=== PATIENT | female | born 1940 | race Caucasian/White ===

== ENCOUNTER 2019-07-04 19:20 | Inpatient (IN) | payer MEDICARE, OTHER ==
[~2019-07-04] VITALS: Ht 157.5 cm; Wt 56.4 kg
--- NOTE | 2019-07-04 19:30 | NUR ---
Admission Note with Justification for Admission to [facility] Patient admitted to [facility] for protective oversight for emergency stabilization of acute psychiatric crisis. Pt admitted from: [facility]/ Home Mode of arrival: EMS Accompanied By: EMS Precipitating behaviors that initiated intake and admission: AMS, delusional, visual hallucinations, refusing medications for a couple of weeks, not eating for 3 weeks, delusional- stating that she was washing the dirty dog in the bed while at the hospital, and insomnia. Description of failure of out patient attempts at stabilization in previous setting list behavior and medication trials: Pt re-started on Wellbutrin, Seroquel, Lorazepam, and Zoloft; psychological evaluation by [facility]. Behaviors and assessment findings upon admission: Pt A/O to person, , month, and current president. Pt pleasant, confused, and cooperative. Physical assessment as charted. Pt c/o pelvic pain with turning and standing. Pt oriented to room and unit, yellow non-slip socks on, bed low and locked with alarm set. Plan: Admit for protective oversight for adjustment and stabilization of medications, behaviors and mood. Intense treatment regimen including groups, medication adjustments, therapy, consistent regimen for ADL's, self care, and sleep hygiene. Daily monitoring by Inpatient staff, Psychiatry, and Medical Physician.
[2019-07-04] MEDS ORDERED: METHYL SALICYLATE/MENTHOL TOPICAL OINTMENT 29GM TUBE. TP PRN (21:00)
[2019-07-04] MEDS ORDERED: MAG HYDROX/AL HYDROX/SIMETH 30 ML ORAL.SUSP PO PRN (21:00)
--- NOTE | 2019-07-04 21:37 | NUR ---
Admission Note with Justification for Admission to [facility] Patient admitted to [facility] for protective oversight for emergency stabilization of acute psychiatric crisis. Pt admitted from: SNF Mode of arrival: EMS Accompanied By: Secure Transport Precipitating behaviors that initiated intake and admission: Delusional confused hallucinating not taking meds not eating, insomnia. Description of failure of out patient attempts at stabilization in previous setting list behavior and medication trials: Med adjustments. Assessed by [facility]. Behaviors and assessment findings upon admission: Pt tearful, complains of pain to pelvis, is labile, confused. Follows commands but is impulsive. Plan: Admit for protective oversight for adjustment and stabilization of medications, behaviors and mood. Intense treatment regimen including groups, medication adjustments, therapy, consistent regimen for ADL's, self care, and sleep hygiene. Daily monitoring by Inpatient staff, Psychiatry, and Medical Physician.
[2019-07-04] MEDS ORDERED: ACET500T68 PO (21:48)
[2019-07-04] MEDS ORDERED: QUET100T4 PO (21:48)
[2019-07-04] MEDS ORDERED: AMLO5TAB10 PO (21:48)
[2019-07-04] MEDS ORDERED: NITR0.4T SL (21:48)
[2019-07-04] MEDS ORDERED: MAGN64TA6 PO (21:48)
[2019-07-04] MEDS ORDERED: METF500T16 PO (21:48)
[2019-07-04] MEDS ORDERED: MELA1TAB20 PO (21:48)
[2019-07-04] MEDS ORDERED: FURO20TA3 PO (21:48)
[2019-07-04] MEDS ORDERED: BUPR100T11 PO (21:48)
[2019-07-04] MEDS ORDERED: UBID30CA6 PO (21:48)
[2019-07-04] MEDS ORDERED: CHOL10003 PO (21:48)
[2019-07-04] MEDS ORDERED: SERT100T PO (21:48)
[2019-07-04] MEDS ORDERED: REPA2TAB PO (21:48)
[2019-07-04] MEDS ORDERED: QUET25TA5 PO (21:48)
[2019-07-04] MEDS ORDERED: FOLI1TAB16 PO (21:48)
[2019-07-04] MEDS ORDERED: TELM80TA PO (21:48)
[2019-07-04] MEDS ORDERED: FENO145T30 PO (21:48)
[2019-07-04] MEDS ORDERED: ALIR75PE SQ (21:48)
[2019-07-04] MEDS ORDERED: ASPI-612 PO (21:48)
[2019-07-04] MEDS ORDERED: RANI150T2 PO (21:48)
[2019-07-04] MEDS ORDERED: CARV3.1230 PO (21:48)
[2019-07-04] MEDS ORDERED: CEFD300C PO (21:48)
[2019-07-04] MEDS ORDERED: NITROGLYCERIN SUBLINGUAL 0.4 MG BOTTLE OF 25. SL PRN (22:00)
--- NOTE | 2019-07-04 22:08 | PDOC ---
Exam Note: Flavio Note: Please also refer to the separate dictated note~for this date of service dictated separately. Discussed the patient with Nursing staff reviewed the chart.~Reviewed interim history and current functioning. Reviewed vital signs,~Labs/ Radiology~and current medications noted below. Continue current treatment with the changes noted in the dictated addendum note Current Medications: I have reviewed the current psychotropics carefully including drug interactions. Risk benefit ratio favors no change other than as noted in my dictated progress note. PAUL SHER MD Jul 04, 2019 22:08
[2019-07-04] MEDS: MELATONIN 3 MG TABLET PO SCH (22:47)
[2019-07-04] MEDS: FAMOTIDINE 20 MG TABLET PO SCH (22:47)
[2019-07-04] MEDS: buPROPion 100 MG TABLET PO SCH (22:47)
[2019-07-04] MEDS: ACETAMINOPHEN 500 MG TABLET PO SCH (22:47)
[2019-07-05] VITALS: BP_SYST 190; BP_SYST 196; BP_DIAS 73; BP_DIAS 82
[2019-07-05 02:19] LABS: BILIRUBIN,URINE NEG (NEG); CLARITY,URINE CLEAR; COLOR,URINE YELLOW; GLUCOSE,URINE NEG (NEG); NITRITE,URINE NEG (NEG); UROBILINOGEN,URINE 0.2 mg/dL (0.2 mg/dL)
[2019-07-05 02:20] LABS: BACTERIA,URINE FEW /HPF (0-FEW); HYALINE CASTS, URINE FEW /HPF; RBC,URINE OCC /HPF (0-2); SQUAMOUS EPITHELIAL CELL,UR FEW /LPF
[2019-07-05] MEDS: ACETAMINOPHEN 500 MG TABLET PO SCH ×2 (05:31)
[2019-07-05] MEDS: QUEtiapine 25 MG TABLET. PO SCH ×2 (05:31→12:35)
[2019-07-05 05:37] VITALS: BP 202/88
[2019-07-05] MEDS: amLODIPine BESYLATE 10 MG TABLET PO SCH (05:52)
[2019-07-05 07:37] LABS: BASO # 0.1 x10^3/uL (0.0-0.2); BASO % 1 % (0-3); EOS # 0.3 x10^3/uL (0.0-0.7); EOS % 4 % (0-3); HEMATOCRIT 34.3 % (36.0-47.0); HEMOGLOBIN 11.3 g/dL (12.0-15.5); LYMPH # 1.1 x10^3/uL (1.0-4.8); LYMPH % 16 % (24-48); MEAN CORPUSCULAR HEMOGLOBIN 29 pg (25-35); MEAN CORPUSCULAR HGB CONC 33 g/dL (31-37); MEAN CORPUSCULAR VOLUME 87 fL (79-100); MONO # 0.7 x10^3/uL (0.0-1.1); MONO % 9 % (0-9); NEUT # 5.1 x10^3uL (1.8-7.7); NEUT % 70 % (31-73); PLATELET COUNT 303 x10^3/uL (140-400); RED BLOOD COUNT 3.95 x10^6/uL (3.50-5.40); RED CELL DISTRIBUTION WIDTH 15.2 % (11.5-14.5); WHITE BLOOD COUNT 7.3 x10^3/uL (4.0-11.0)
[2019-07-05 07:56] LABS: ALBUMIN 3.1 g/dL (3.4-5.0); ALBUMIN/GLOBULIN RATIO 1.2 (1.0-1.7); CREATININE 0.9 mg/dL (0.6-1.0); GFR 60.7; MAGNESIUM 1.6 mg/dL (1.8-2.4); POTASSIUM 3.4 mmol/L (3.5-5.1); TOTAL BILIRUBIN 0.4 mg/dL (0.2-1.0); TOTAL PROTEIN 5.7 g/dL (6.4-8.2)
[2019-07-05] MEDS: ASPIRIN ENTERIC COATED 81 MG TABLET.DR. PO SCH ×2 (08:25→12:31)
[2019-07-05] MEDS: CARVEDILOL 3.125 MG TABLET PO SCH ×3 (08:25→17:07)
[2019-07-05] MEDS: metFORMIN 500 MG TABLET PO SCH ×3 (08:25→17:07)
[2019-07-05] MEDS: UBIDECARENONE 50 MG CAPSULE. PO SCH ×3 (08:26→20:12)
[2019-07-05] MEDS: FUROSEMIDE 20 MG TABLET PO SCH ×2 (08:26→12:32)
[2019-07-05] MEDS: FOLIC ACID 1 MG TABLET PO SCH ×2 (08:26→12:48)
[2019-07-05] MEDS: LOSARTAN 50 MG TABLET. PO SCH ×2 (08:26→12:32)
[2019-07-05] MEDS: MAGNESIUM CHLORIDE ER 64 MG TABLET.ER PO SCH ×2 (08:27→12:49)
[2019-07-05] MEDS: FAMOTIDINE 20 MG TABLET PO SCH ×3 (08:27→20:14)
[2019-07-05] MEDS: CEFDINIR 300 MG CAPSULE PO SCH ×3 (08:27→20:12)
[2019-07-05] MEDS: CHOLECALCIFEROL (VITAMIN D3) 1,000 UNIT TABLET PO SCH ×2 (08:27→12:49)
[2019-07-05] MEDS: buPROPion 100 MG TABLET PO SCH ×3 (08:27→20:12)
[2019-07-05] MEDS: SERTRALINE 100 MG TABLET. PO SCH ×2 (08:27→12:35)
[2019-07-05 08:39] LABS: HYPOCHROMIA PRESENT; PLT ESTIMATE ADEQUATE (ADEQUATE)
[2019-07-05 08:45] VITALS: BP 145/75
[2019-07-05] MEDS: C.DIFF MED SCREEN BY RX. MC SCH (09:00)
[2019-07-05] MEDS ORDERED: amLODIPine BESYLATE 5 MG TABLET PO SCH (09:00)
[2019-07-05] MEDS ORDERED: FENOFIBRATE NANOCRYSTALLIZED 145 MG TABLET PO SCH (09:00)
[2019-07-05 10:19] LABS: THYROID STIM HORMONE (TSH) 1.703 uIU/mL (0.358-3.740)
[2019-07-05 11:07] LABS: THYROXINE 7.2 ug/dL (4.5-12.0)
--- NOTE | 2019-07-05 11:45 | NUR ---
Pt is restless, unable to focus on a task, irritable, believes she is in a half-way and states "I gave this place a lot of money." "I gave this place a lot of money when my mom lived here." When asked if she knew the date pt stated "June 2018" When asked if she knew why she was here she stated "because of breathing problems." Pt has refused all am medications-she took the pill cup to her lips then put it on the table and took a drink of water when the nurse encouraged her to swallow her medication she dumped the medication in the cup. Nurse encouraged her multiple times to take her medication however pt continued to refuse stating "I don't take medication." "Ill ask the doctor first." Pt continues to be restless, irritable and confused.
[2019-07-05 15:46] VITALS: BP 135/65
[2019-07-05] MEDS ORDERED: REPAGLINIDE 1 MG TABLET PO SCH (17:00)
[2019-07-05] MEDS: QUEtiapine 100 MG TABLET. PO SCH (17:07)
[2019-07-05] MEDS: MELATONIN 3 MG TABLET PO SCH (20:12)
[2019-07-05] MEDS ORDERED: MELATONIN 3 MG TABLET PO SCH (21:00)
[2019-07-05] MEDS: MIRTAZAPINE 7.5 MG TABLET. PO SCH (21:49)
--- NOTE | 2019-07-05 21:58 | PDOC ---
Exam Note: Flavio Note: Please also refer to the separate dictated note~for this date of service dictated separately.~Patient seen individually. Discussed the patient with Nursing staff reviewed the chart.~Reviewed interim history and current functioning. Reviewed vital signs,~Labs/ Radiology~and current medications noted below. Continue current treatment with the changes noted in the dictated addendum note Assessment: Vital Signs/I&O: Vital Signs Date Time Temp Pulse Resp B/P (MAP) Pulse Ox O2 Delivery O2 Flow Rate FiO2 07/05/19 17:07 94 135/65 07/05/19 15:46 97.4 20 95 I & O 07/04/19 07/04/19 07/05/19 15:00 23:00 07:00 Intake Total 120 ml Balance 120 ml Labs: Laboratory Tests Test 07/05/19 02:04 07/05/19 06:50 07/05/19 07:50 Urine Collection Type Void Urine Color Yellow Urine Clarity Clear Urine pH 7.5 Urine Specific Chancellor 1.025 Urine Protein >100 mg/dl (NEG-TRACE) Urine Glucose (UA) Neg mg/dL (NEG) Urine Ketones (Stick) Neg mg/dL (NEG) Urine Blood Trace (NEG) Urine Nitrite Neg (NEG) Urine Bilirubin Neg (NEG) Urine Urobilinogen Dipstick 0.2 mg/dL (0.2 mg/dL) Urine Leukocyte Esterase Neg (NEG) Urine RBC Occ /HPF (0-2) Urine WBC 5-10 /HPF (0-4) Urine Squamous Epithelial Cells Few /LPF Urine Transitional Epithelial Cells Few /LPF Urine Bacteria Few /HPF (0-FEW) Urine Hyaline Casts Few /HPF White Blood Count 7.3 x10^3/uL (4.0-11.0) Red Blood Count 3.95 x10^6/uL (3.50-5.40) Hemoglobin 11.3 g/dL (12.0-15.5) L Hematocrit 34.3 % (36.0-47.0) L Mean Corpuscular Volume 87 fL (79-100) Mean Corpuscular Hemoglobin 29 pg (25-35) Mean Corpuscular Hemoglobin Concent 33 g/dL (31-37) Red Cell Distribution Width 15.2 % (11.5-14.5) H Platelet Count 303 x10^3/uL (140-400) Neutrophils (%) (Auto) 70 % (31-73) Lymphocytes (%) (Auto) 16 % (24-48) L Monocytes (%) (Auto) 9 % (0-9) Eosinophils (%) (Auto) 4 % (0-3) H Basophils (%) (Auto) 1 % (0-3) Neutrophils # (Auto) 5.1 x10^3uL (1.8-7.7) Lymphocytes # (Auto) 1.1 x10^3/uL (1.0-4.8) Monocytes # (Auto) 0.7 x10^3/uL (0.0-1.1) Eosinophils # (Auto) 0.3 x10^3/uL (0.0-0.7) Basophils # (Auto) 0.1 x10^3/uL (0.0-0.2) Platelet Estimate Adequate (ADEQUATE) Hypochromasia Present Sodium Level 141 mmol/L (136-145) Potassium Level 3.4 mmol/L (3.5-5.1) L Chloride Level 105 mmol/L (98-107) Carbon Dioxide Level 27 mmol/L (21-32) Anion Gap 9 (6-14) Blood Urea Nitrogen 11 mg/dL (7-20) Creatinine 0.9 mg/dL (0.6-1.0) Estimated GFR (Cockcroft-Gault) 60.7 BUN/Creatinine Ratio 12 (6-20) Glucose Level 196 mg/dL (70-99) H Calcium Level 10.0 mg/dL (8.5-10.1) Magnesium Level 1.6 mg/dL (1.8-2.4) L Iron Level 49 ug/dL (50-170) L Total Iron Binding Capacity 312 ug/dL (250-450) Iron Saturation 16 % (15-34) Total Bilirubin 0.4 mg/dL (0.2-1.0) Aspartate Amino Transferase (AST) 35 U/L (15-37) Alanine Aminotransferase (ALT) 29 U/L (14-59) Alkaline Phosphatase 150 U/L (46-116) H Total Protein 5.7 g/dL (6.4-8.2) L Albumin 3.1 g/dL (3.4-5.0) L Albumin/Globulin Ratio 1.2 (1.0-1.7) Triglycerides Level 197 mg/dL (0-150) H Cholesterol Level 178 mg/dL (0-200) LDL Cholesterol, Calculated 101 mg/dL (0-100) H VLDL Cholesterol, Calculated 39 mg/dL (0-40) Non-HDL Cholesterol Calculated 140 mg/dL (0-129) H HDL Cholesterol 38 mg/dL (40-60) L Cholesterol/HDL Ratio 4.0 Thyroid Stimulating Hormone (TSH) 1.703 uIU/mL (0.358-3.740) Thyroxine (T4) 7.2 ug/dL (4.5-12.0) Total Triiodothyronine (TT3) 94 ng/dL (71-180) Glucose (Fingerstick) 189 mg/dL (70-99) H Current Medications: Meds: Current Medications Medications (Trade) Dose Ordered Sig/Sirisha Route PRN Reason Start Time Stop Time Status Last Admin Dose Admin Pharmacy Consult ([facility] Med Screen By Rx) 1 each DAILY 07/05/19 09:00 07/05/19 12:47 Acetaminophen (Tylenol) 1,000 mg Q6HRS PO 07/04/19 22:00 07/05/19 12:40 DC 07/05/19 05:31 Aspirin (Aspirin Enteric Coated) 81 mg DAILY PO 07/05/19 09:00 07/05/19 12:47 Carvedilol (Coreg) 3.125 mg BIDWMEALS PO 07/05/19 08:00 07/05/19 17:07 Cefdinir (Omnicef) 300 mg BID PO 07/05/19 09:00 07/09/19 20:00 07/05/19 20:20 Furosemide (Lasix) 20 mg DAILY PO 07/05/19 09:00 07/05/19 12:47 Metformin HCl (Glucophage) 500 mg BIDWMEALS PO 07/05/19 08:00 07/05/19 17:07 Famotidine (Pepcid) 20 mg BID PO 07/04/19 22:30 07/05/19 20:20 Losartan Potassium (Cozaar) 100 mg DAILY PO 07/05/19 09:00 07/05/19 12:47 Bupropion HCl (Wellbutrin) 100 mg BID PO 07/04/19 22:00 07/05/19 21:00 DC 07/05/19 20:20 Quetiapine Fumarate (SEROquel) 25 mg BID@0600,1200 PO 07/05/19 06:00 07/05/19 12:47 Quetiapine Fumarate (SEROquel) 100 mg QEVNG PO 07/05/19 18:00 07/05/19 17:07 Sertraline HCl (Zoloft) 100 mg DAILY PO 07/05/19 09:00 07/05/19 12:47 Melatonin 3 mg QHS PO 07/04/19 22:45 07/05/19 20:20 Amlodipine Besylate (Norvasc) 10 mg DAILY PO 07/05/19 06:00 07/05/19 05:52 Olanzapine (ZyPREXA ZYDIS) 2.5 mg PRN Q2HR PRN PO PSYCHOSIS 07/05/19 13:45 07/05/19 20:20 Mirtazapine (Remeron) 7.5 mg QHS PO 07/05/19 21:00 07/05/19 21:49 I have reviewed the current psychotropics carefully including drug interactions. Risk benefit ratio favors no change other than as noted in my dictated progress note. Diagnosis: Problems: (1) Anxiety disorder (2) Dementia, vascular, with delusions (3) Dementia, vascular, with depression (4) Dementia in Alzheimer's disease with delusions (5) Dementia in Alzheimer's disease with depression (6) Impulse control disorder (7) Delirium due to general medical condition PAUL SHER MD Jul 05, 2019 21:58
--- NOTE | 2019-07-05 22:10 | HP ---
ADMIT DATE: 07/05/2019 PSYCHIATRIC ADMISSION HISTORY/EVALUATION IDENTIFYING DATA: The patient is a 79-year-old female referred to us from [facility] after she presented there from home with increased confusion, hallucinations. She was not taking her pain medications or eating or drinking for about 3 weeks. She stated she "washed the dirty dog" in her bed the previous night. She is having marked insomnia. She is usually oriented x 4 and caregiver for her who has dementia. This is a significant change in her overall presentation. CHIEF COMPLAINT: "I don't know." The patient is in a Broda chair, who is being taken for a shower evening of 07/05/2019 as I met with her. HISTORY OF PRESENT ILLNESS: The patient reportedly has been functioning reasonably well until the past 3 weeks. She has been increasingly confused, delusional, having marked insomnia, not eating or drinking. As noted, she was a caregiver for her and all of this has changed significantly. No clear history of bipolar disorder, suicidal or homicidal ideation. On further review of her history, it is questionable whether she was having early symptoms of dementia, but despite this was functioning reasonably well until the sudden downturn recently. PAST PSYCHIATRIC HISTORY: As above. MEDICAL HISTORY: Positive for recent pelvic fracture on 05/29/2019 status post urinary tract infection, coronary artery disease with stents in 2010, hypertension, type 2 diabetes mellitus, insomnia, peripheral vascular disease, bilateral lower extremities, hyperlipidemia. Accu-Cheks daily. ALLERGIES: NIASPAN, CARDIZEM, ENALAPRIL, STATINS. CODE STATUS: Full code. DIET: Regular, will need to be fed, not able to get a fork to her mouth, goes to a ear. MEDICATIONS: Takes medications whole. ACTIVITIES: Ambulates with assist x 2 with transfer, weak and unsteady, but by this evening she is in a Broda chair for safety. UA as noted 07/01/2019 was positive at [facility], to be repeated at 07/05/2019. CURRENT PSYCHOTROPICS: Seroquel 100 mg at 1800 and 25 mg b.i.d., Zoloft 100 mg a day, melatonin 3 mg at bedtime, Wellbutrin 100 mg b.i.d. Staff had called me earlier in the day today as an emergency for agitation, marked impulse control and we added Zyprexa p.r.n. FAMILY HISTORY: Noncontributory. SOCIAL HISTORY: No history of alcohol, drug abuse, physical, sexual or elder abuse. She is not known to be a perpetrator. REACTION TO HOSPITALIZATION: The patient oblivious of this. ASSETS: Supportive family. REVIEW OF SYSTEMS: Ambulation impaired. No CV, , pulmonary, eye, ENT system symptoms on review. Reliability poor. MENTAL STATUS EXAMINATION: The patient is oriented to herself. Insight, judgment, recent and remote memory, attention, concentration, fund of knowledge poor, consistent with her diagnosis. LABORATORY DATA: Reviewed. IMPRESSION: Delirium due to general medical condition, possible major neurocognitive disorder, early Alzheimer vascular with delusion, depression, anxiety disorder unspecified, impulse control disorder unspecified. Rest diagnoses as above. PLAN: Admit to Geropsychiatry Unit at [facility]. I will see the patient daily individually from a psychiatric standpoint. Medical followup with Dr. Atwood. Continue the patient on her current psychotropics, but stop the Wellbutrin since she is on Zoloft 100 mg a day for depression. Continue Seroquel. Start Remeron 7.5 mg p.o. at bedtime to help with insomnia and to help stimulate her appetite as well, which are 2 things that were quite a significant problem prior to her admission. We will make further changes depending on baseline assessment. Estimated length of stay 10-12 days. DISPOSITION PLANS: Either back home or probably she will need a higher level of care. PAUL SHER MD DR: JACE/michelle JOB#: [id number] / [id number]
--- NOTE | 2019-07-05 22:20 | CONS ---
DATE OF CONSULTATION: 07/05/2019 REASON FOR CONSULTATION: Medical management. HISTORY OF PRESENT ILLNESS: The patient is a 79-year-old female patient who apparently still lives with her and has been taking care of him as he has dementia and apparently fell in 05/29/2019 and broke her pelvis and since then developed change in her mental status. She is very delusional, hallucinating, not taking her pain medication or eating or drinking for about 3 weeks. She stated she watched a dirty dog in her bed the night before. She has insomnia. 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 When I saw her this afternoon, she was sitting in a Broda chair. She is apparently very unsteady on her feet, stated that she has a huge number of medical problems, but failed to elaborate. She thinks that a lady sitting next to her is her mom and thinks that she was invited here and her is somewhere around. She is here for inpatient psychiatric stabilization. PAST MEDICAL HISTORY: Significant for hypertension, type 2 diabetes, peripheral vascular disease, hyperlipidemia, UTI, coronary artery disease with stent deployment x 3. She also had a recent fall with pelvic fracture. PAST SURGICAL HISTORY: Significant for PCI with stent deployment x 3. FAMILY HISTORY: Noncontributory. SOCIAL HISTORY: She lives with her who has dementia. She has 2 sons. She apparently does not smoke, drink alcohol or use any recreational drugs. ALLERGIES: She is allergic to STATINS, DILTIAZEM, ENALAPRIL, AND NIACIN. MEDICATIONS: She is currently on following medications: She is on cefdinir 300 mg twice a day, fenofibrate 145 mg once a day, Praluent 75 mcg every 2 weeks. She is on nitroglycerin 0.4 mg sublingual every 5 minutes x 3, carvedilol 3.125 mg twice a day, amlodipine 5 mg once a day, Micardis 80 mg once a day, aspirin 81 mg once a day, Tylenol 1000 mg every 6 hours, Wellbutrin 100 mg twice a day, sertraline or Zoloft 100 mg once a day, Seroquel 100 mg in the evening, Seroquel 25 mg twice a day, magnesium chloride or Mag-Delay 64 mg once a day, furosemide 20 mg once a day, ranitidine 150 mg twice a day, metformin 500 mg twice a day, pregabalin, repaglinide or Prandin 2 mg daily before supper. She is on folic acid 1 mg once a day and ergocalciferol, vitamin D3 1000 international unit once a day. She is also on melatonin with pyridoxal phosphate 1 tablet at bedtime and CoQ10 30 mg twice a day. PHYSICAL EXAMINATION: GENERAL: When I examined her this afternoon, she was sitting in her recliner, in no apparent respiratory distress. She was pale, but no jaundice, cyanosis or thyromegaly. No jugular venous distention. No limb edema. VITAL SIGNS: Her heart rate was 101, blood pressure was 102/88, temperature was 98.5, respiratory rate 20, and oxygen saturation was 97%. HEAD, EYES, EARS, NOSE, AND THROAT: Showed normocephalic, atraumatic. NECK: Supple. HEART: Showed normal first and second heart sounds with no gallop, rub, or murmur. CHEST: Clear to auscultation. No crepitation or rhonchi. ABDOMEN: Distended, soft, nontender. No guarding or rigidity. No organomegaly. All hernial orifice intact. Bowel sounds normal. NEUROLOGIC: She is awake, alert, responding appropriately. LABORATORY DATA: She apparently has had extensive investigations while at [facility], in fact seemed to have been noted in the lumbar puncture, which showed that her CSF was crystal clear. There is only 2 wbc's. Her total protein was slightly high at 103 and her glucose was normal at 59. Her electrolytes were all within normal range and her urinalysis was essentially unremarkable. She was admitted to [facility] for inpatient psychiatric stabilization. Her lab work done this morning showed a white cell count 7300, hemoglobin 11.3, hematocrit 34, MCV 87, her platelet count of 303,000. Her serum sodium was 141, potassium 2.4, chloride 105, bicarbonate 27, anion gap of 9, BUN 11, creatinine 0.9, estimated GFR was 61 mL per minute. Her glucose was 196, calcium was 10, magnesium was 1.6. Serum iron, TIBC and iron saturation are all consistent with iron deficiency anemia. Total bilirubin, AST, ALT were normal. Alkaline phosphatase was slightly elevated. Total protein was 5.7, albumin was 3.1. Serum triglycerides were 197. Total cholesterol 178, LDL cholesterol 101, VLDL was 36, and HDL cholesterol was 58, the ratio was 4. Her TSH, total T4, and total T3 were all normal. Her white cell count was 7300, hemoglobin 11, hematocrit 34, MCV 87 and platelet count 303,000 with normal manual differential. Urinalysis showed the urine was yellow, clear with a pH of 7.5, specific gravity of 1.025 with large amount of protein. The urine was negative for glucose, ketones. There was trace of blood. Negative for nitrite, and negative leukocyte esterase. There were occasional rbc's, 5-10 wbc's, and very few bacteria. IMPRESSION AND PLAN: In summary, this is a 79-year-old who is normally alert and oriented x 4, who usually takes care of her who has dementia and who was seen at [facility] in [place] with altered mental status. She has been delusional, hallucinating, not taking her pain medication, eating or drinking for about 3 weeks. She is here for inpatient psychiatric stabilization. The patient's blood pressure is markedly elevated, especially systolic blood pressure. However, the most recent measurement was down to 140/90. She is actually on multiple antihypertensive medications including losartan, carvedilol, and amlodipine; however, the patient apparently is refusing to take her medication. All her other lab works are otherwise seemed to be within acceptable range. From a medical point of view obviously, she seemed to be generally stable. If she continued to refuse antihypertensive medication, we could start her on clonidine patch to control the blood pressure. She did have slightly elevated CSF protein. I am not sure what to make of that given that the CSF white cell count is only 2 and the CSF was colorless and clear. PIERRE NOEL MD DR: SUKI/michelle JOB#: [id number] / [id number]
--- NOTE | 2019-07-06 01:03 | NUR ---
Pt sitting in Broda chair in the day room at shift change. Pt pleasant, social, but disorganized, restless, and impulsive, confused. Pt cooperative with assessment and compliant with medications administered crushed in ice cream. Pt son and called and given an update on pt current status.
[2019-07-06 02:06] LABS: HEMOGLOBIN A1C 5.6 % (4.8-5.6)
[2019-07-06] MEDS: amLODIPine BESYLATE 10 MG TABLET PO SCH (05:13)
[2019-07-06] MEDS: ACETAMINOPHEN 500 MG TABLET PO PRN (05:13)
[2019-07-06 05:55] VITALS: BP 191/70
[2019-07-06] MEDS: QUEtiapine 25 MG TABLET. PO SCH ×2 (06:00→12:32)
[2019-07-06] MEDS: CARVEDILOL 3.125 MG TABLET PO SCH ×3 (08:22→17:12)
[2019-07-06] MEDS: ASPIRIN ENTERIC COATED 81 MG TABLET.DR. PO SCH (08:22)
[2019-07-06] MEDS: metFORMIN 500 MG TABLET PO SCH ×2 (08:22→17:12)
[2019-07-06] MEDS: FUROSEMIDE 20 MG TABLET PO SCH (08:23)
[2019-07-06] MEDS: LOSARTAN 50 MG TABLET. PO SCH (08:23)
[2019-07-06] MEDS: SERTRALINE 100 MG TABLET. PO SCH (08:23)
[2019-07-06] MEDS: CEFDINIR 300 MG CAPSULE PO SCH ×2 (08:23→20:44)
[2019-07-06] MEDS: C.DIFF MED SCREEN BY RX. MC SCH (09:00)
[2019-07-06] MEDS: CHOLECALCIFEROL (VITAMIN D3) 1,000 UNIT TABLET PO SCH (09:00)
[2019-07-06] MEDS: UBIDECARENONE 50 MG CAPSULE. PO SCH ×2 (09:00→20:44)
[2019-07-06] MEDS: FAMOTIDINE 20 MG TABLET PO SCH ×2 (09:00→20:44)
[2019-07-06] MEDS: MAGNESIUM CHLORIDE ER 64 MG TABLET.ER PO SCH (09:00)
[2019-07-06] MEDS: FOLIC ACID 1 MG TABLET PO SCH (09:00)
--- NOTE | 2019-07-06 09:00 | NUR ---
Pt is restless, disorganized and confused. She believes she is in [place]. She believes it is March 2019. She is alert to herself but not why she is in the hospital. She is compliant with her medication and assessment. Pt was delusional and believed she dropped 2 books under the table and had to be redirected that the books were not under the table. Pt was redirected and taken to the day room for morning group.
--- NOTE | 2019-07-06 13:00 | NUR ---
Pt is tearful and delusional stating she wants to sit on the steps with her kids and her mom. Pt is attempting to ambulate unassisted. Pt is stating the nurse "interfered with my sons wedding." Staff attempted to redirect pt however pt was unable to be redirected or consoled. PRN damaris lemus given.
[2019-07-06 13:53] VITALS: BP 162/78
[2019-07-06] MEDS: hydrALAZINE 25 MG TABLET PO SCH ×2 (13:55→20:46)
[2019-07-06 16:01] VITALS: BP 120/78
[2019-07-06] MEDS: QUEtiapine 100 MG TABLET. PO SCH (17:12)
[2019-07-06] MEDS: MIRTAZAPINE 7.5 MG TABLET. PO SCH (20:44)
[2019-07-06] MEDS: MELATONIN 3 MG TABLET PO SCH (20:44)
--- NOTE | 2019-07-06 21:02 | PDOC ---
Exam Note: Flavio Note: Please also refer to the separate dictated note~for this date of service dictated separately.~Patient seen individually. Discussed the patient with Nursing staff reviewed the chart.~Reviewed interim history and current functioning. Reviewed vital signs,~Labs/ Radiology~and current medications noted below. Continue current treatment with the changes noted in the dictated addendum note Assessment: Vital Signs/I&O: Vital Signs Date Time Temp Pulse Resp B/P (MAP) Pulse Ox O2 Delivery O2 Flow Rate FiO2 07/06/19 20:46 62 120/78 07/06/19 16:01 97.4 20 98 Room Air I & O 07/05/19 07/05/19 07/06/19 14:59 22:59 06:59 Intake Total 480 ml 240 ml 120 ml Balance 480 ml 240 ml 120 ml Labs: Laboratory Tests Test 07/06/19 07:55 Glucose (Fingerstick) 140 mg/dL (70-99) H Current Medications: Meds: Current Medications Medications (Trade) Dose Ordered Sig/Sirisha Route PRN Reason Start Time Stop Time Status Last Admin Dose Admin Carvedilol (Coreg) 6.25 mg BIDWMEALS PO 07/06/19 13:15 07/06/19 17:12 Hydralazine HCl (Apresoline) 25 mg TID PO 07/06/19 14:00 07/06/19 20:46 I have reviewed the current psychotropics carefully including drug interactions. Risk benefit ratio favors no change other than as noted in my dictated progress note. Diagnosis: Problems: (1) Anxiety disorder (2) Dementia, vascular, with delusions (3) Dementia, vascular, with depression (4) Dementia in Alzheimer's disease with delusions (5) Dementia in Alzheimer's disease with depression (6) Impulse control disorder (7) Delirium due to general medical condition PAUL SHER MD Jul 06, 2019 21:02
--- NOTE | 2019-07-06 23:00 | NUR ---
Pt located in the dayroom all evening, restless in her broda. Compliant with HS medications. Pt rambling, manic and tearful. Pt stating that she has had alot of loss in her life and appeared to be reliving their deaths. Pt began talking about her grandfather and his and continued on about other family members up to her son, Pankaj. Pt able to be redirected and calmed down. Pt continued to be restless in her broda until bed.
[2019-07-07] MEDS: CARVEDILOL 3.125 MG TABLET PO SCH ×2 (05:30→17:06)
[2019-07-07] MEDS: hydrALAZINE 25 MG TABLET PO SCH ×3 (05:30→19:49)
[2019-07-07] MEDS: QUEtiapine 25 MG TABLET. PO SCH ×2 (05:31→12:06)
--- NOTE | 2019-07-07 05:37 | NUR ---
Dr. Atwood paged regarding pt's elevated manual BP of 232/66. Received orders to administer 0900 Coreg and Hydralazine now. Will continue to monitor.
[2019-07-07 05:43] VITALS: BP 232/66
--- NOTE | 2019-07-07 06:43 | NUR ---
Paged and spoke to Dr. Martinez re: change in mental status since May 2019.
[2019-07-07] MEDS: MAGNESIUM CHLORIDE ER 64 MG TABLET.ER PO SCH (08:12)
[2019-07-07] MEDS: CEFDINIR 300 MG CAPSULE PO SCH ×2 (08:12→19:49)
[2019-07-07] MEDS: SERTRALINE 100 MG TABLET. PO SCH (08:12)
[2019-07-07] MEDS: UBIDECARENONE 50 MG CAPSULE. PO SCH ×2 (08:12→19:48)
[2019-07-07] MEDS: FOLIC ACID 1 MG TABLET PO SCH (08:12)
[2019-07-07] MEDS: FAMOTIDINE 20 MG TABLET PO SCH ×2 (08:12→19:48)
[2019-07-07] MEDS: LOSARTAN 50 MG TABLET. PO SCH (08:13)
[2019-07-07] MEDS: metFORMIN 500 MG TABLET PO SCH ×2 (08:14→17:05)
[2019-07-07] MEDS: ASPIRIN ENTERIC COATED 81 MG TABLET.DR. PO SCH (08:14)
[2019-07-07] MEDS: CHOLECALCIFEROL (VITAMIN D3) 1,000 UNIT TABLET PO SCH (08:14)
[2019-07-07] MEDS: FUROSEMIDE 20 MG TABLET PO SCH (08:14)
[2019-07-07] MEDS: C.DIFF MED SCREEN BY RX. MC SCH (09:00)
--- NOTE | 2019-07-07 09:00 | NUR ---
Nursing Note Pt in dining room for morning medication pass. Pt labile, impulsive, easily agitated, alert to self only. Pt in a Broda d/t an unsteady gait, weakness following a pelvic fracture that happened on May 29, 2019 which lead to a mental and physical decline, and impulsivity, .
--- NOTE | 2019-07-07 12:32 | NUR ---
Nursing Note: Pt became upset in the day room, staff and this food writer attempted to comfort and redirect pt. Pt continued to focus on "looking" for her mother's cert into dining for lunch. Unable to redirect pt. PRN given. Will continue to monitor.
[2019-07-07 15:49] VITALS: BP 145/72
--- NOTE | 2019-07-07 18:17 | NUR ---
Nursing Note: Regarding C-Diff monitoring; pt did not have bowel movement on this shift.
[2019-07-07] MEDS: MELATONIN 3 MG TABLET PO SCH (19:48)
[2019-07-07] MEDS: MIRTAZAPINE 15 MG TABLET PO SCH (19:49)
--- NOTE | 2019-07-07 22:23 | PDOC ---
Exam Note: Flavio Note: Please also refer to the separate dictated note~for this date of service dictated separately.~Patient seen individually. Discussed the patient with Nursing staff reviewed the chart.~Reviewed interim history and current functioning. Reviewed vital signs,~Labs/ Radiology~and current medications noted below. Continue current treatment with the changes noted in the dictated addendum note Assessment: Vital Signs/I&O: Vital Signs Date Time Temp Pulse Resp B/P (MAP) Pulse Ox O2 Delivery O2 Flow Rate FiO2 07/07/19 19:49 100 145/72 07/07/19 15:49 97.9 18 95 07/06/19 16:01 Room Air I & O 07/06/19 07/06/19 07/07/19 14:59 22:59 06:59 Intake Total 480 ml 240 ml 120 ml Balance 480 ml 240 ml 120 ml Labs: Laboratory Tests Test 07/07/19 07:36 Glucose (Fingerstick) 146 mg/dL (70-99) H Current Medications: Meds: Current Medications Medications (Trade) Dose Ordered Sig/Sirisha Route PRN Reason Start Time Stop Time Status Last Admin Dose Admin Mirtazapine (Remeron) 15 mg QHS PO 07/07/19 21:00 07/07/19 19:49 I have reviewed the current psychotropics carefully including drug interactions. Risk benefit ratio favors no change other than as noted in my dictated progress note. Diagnosis: Problems: (1) Anxiety disorder (2) Dementia, vascular, with delusions (3) Dementia, vascular, with depression (4) Dementia in Alzheimer's disease with delusions (5) Dementia in Alzheimer's disease with depression (6) Impulse control disorder (7) Delirium due to general medical condition PAUL SHER MD Jul 07, 2019 22:23
--- NOTE | 2019-07-07 23:00 | NUR ---
Pt located in dayroom all evening. Pt continues to be restless in her broda chair. Compliant with whole medications. Pt A/O to name and arnulfo. Pt stated that she was in [place] and that it was 1919.
--- NOTE | 2019-07-07 23:22 | PN ---
DATE: 07/06/2019 PSYCHIATRIC PROGRESS NOTE This late entry 07/06/2019 covers elements not covered in my initial note. SUBJECTIVE: I met with the patient evening of 07/06/2019. The patient slept 5-1/2 hours previous night. Previous evening, she was restless, confused. Today, she has been tearful on 07/06/2019, wanting to get down to her . She was sad, ruminating that she had ruined her son's wedding. REVIEW OF SYSTEMS: Ambulation impaired, in Broda chair. No CV, , pulmonary, eye, ENT system symptoms on review. Reliability poor. MENTAL STATUS EXAM: Oriented to herself. Insight, judgment, recent and remote memory, attention, concentration, fund of knowledge poor, consistent with her diagnoses. IMPRESSION: Delirium due to general medical condition, probable major neurocognitive disorder, Alzheimer, vascular with delusion, delirium, depression; anxiety disorder, unspecified. PLAN: Review of the patient's history indicates that she was quite high functioning until a few weeks back. She is caring for her demented at home. She did have a pelvic fracture on 05/29/2019 and then a UTI and confusion has progressively worsened since then. We will consult Dr. Martinez, Neurology to rule out any neurological causes for her acute mental status changes. Continue current psychotropics. Seroquel, Zoloft, melatonin, Remeron, along with Zyprexa p.r.n. Slept 5-1/2 hours previous night. MAN Radha SHER MD DR: JACE/michelle JOB#: [id number] / [id number]
[2019-07-08] MEDS: QUEtiapine 25 MG TABLET. PO SCH ×2 (04:58→12:10)
[2019-07-08] MEDS: ACETAMINOPHEN 325 MG TABLET PO PRN (04:58)
[2019-07-08] MEDS: CARVEDILOL 3.125 MG TABLET PO SCH ×2 (05:18→16:58)
[2019-07-08] MEDS: hydrALAZINE 25 MG TABLET PO SCH ×3 (05:19→19:25)
--- NOTE | 2019-07-08 05:20 | NUR ---
Pt's BP is elevated this morning. Administered 0900 doses of Coreg and Hydralazine at this time.
[2019-07-08 06:16] VITALS: BP 193/81
[2019-07-08] MEDS: ASPIRIN ENTERIC COATED 81 MG TABLET.DR. PO SCH (07:17)
[2019-07-08] MEDS: FAMOTIDINE 20 MG TABLET PO SCH ×2 (07:17→19:25)
[2019-07-08] MEDS: SERTRALINE 100 MG TABLET. PO SCH (07:17)
[2019-07-08] MEDS: MAGNESIUM CHLORIDE ER 64 MG TABLET.ER PO SCH (07:17)
[2019-07-08] MEDS: CHOLECALCIFEROL (VITAMIN D3) 1,000 UNIT TABLET PO SCH (07:17)
[2019-07-08] MEDS: LOSARTAN 50 MG TABLET. PO SCH ×3 (07:17→21:00)
[2019-07-08] MEDS: CEFDINIR 300 MG CAPSULE PO SCH ×2 (07:18→19:24)
[2019-07-08] MEDS: UBIDECARENONE 50 MG CAPSULE. PO SCH ×2 (07:18→19:25)
[2019-07-08] MEDS: FOLIC ACID 1 MG TABLET PO SCH (07:18)
[2019-07-08] MEDS: metFORMIN 500 MG TABLET PO SCH ×2 (07:18→16:57)
[2019-07-08] MEDS: FUROSEMIDE 20 MG TABLET PO SCH (08:17)
[2019-07-08] MEDS: C.DIFF MED SCREEN BY RX. MC SCH (09:00)
--- NOTE | 2019-07-08 10:51 | NUR ---
SW received a call from pt , Syed, who wanted to know how pt is doing because she has been gone for a week and he wants her to come home. RICK explained to pt , that pt has only been here for 4 days and is continuing to be evaluated. It was noted that pt was delusional last night and crawling around looking for things not there. Pt reports that he calls and talks to pt and she focuses more on others. SW informed pt that the LOS on [facility] is 2-3 weeks, in which pt reports "then you better get a bed ready for me because I don't know how long I can make it without her". RICK explained that tx team meets on and SW would be able to call him with an update; pt was thankful. RICK did note that pt is typically the caregiver for her who has Dementia; in pt current situation, pt son will act as DPOA.
--- NOTE | 2019-07-08 11:51 | NUR ---
PSYCHOSOCIAL ASSESSMENT ADMISSION DATE: 07/04/19 CONTACT INFORMATION: DPOA/Guardian Contact Name: Cliff Noonan Contact Address: [place], [place] Contact Phone #: ETHNIC ORIGIN: REASONS FOR ADMISSION: Delusions Hallucinations Sig. Change Appetite Sig. Change Sleep ADDITIONAL ADMISSION COMMENTS: According to the intake, pt has an altered mental status, delusional, hallucinating, is not taking medications and has not eaten for almost 3 weeks. Pt reportedly "washed the dirty dog in the bed" last night and experiencing insomnia. REASON FOR ADMISSION IN PATIENT/FAMILY'S OWN WORDS: Don't think it is dementia. Think it is from her medical status and needing to be back on track. Her BP meds, UTI and dehydration. PATIENT/FAMILY EXPECTATIONS FOR ADMISSION: Medication management LIVING SITUATION: Patient lives with: Spouse Other living arrangements: was caregiver for who has Dementia FAMILY RELATIONS: Marital Status: # of Marriages: 1 # of Children: 3 [facility] Family Support: Concerned Involved in DC Planning Additional Comments r/t Family: Pt and her have been for 59 years. Pt was stationed at a [employer] in [place] and they were set up on a blind date. Pt had 3 sons, in which their youngest was killed at the age of 16 by a polic officer. Pt son did not go into details. SIGNIFICANT PSYCHIATRIC/MEDICAL HISTORY: Psychiatric/Treatment History: This is pt first psychiatric stay on [facility] or anywhere else. Pt son has requested that we contact pt. PCP for records. Pertinent Family History: Hx of Depression. Pt son noted that her mother had some altered status when dehydrated and had to be admitted to the ER. HISTORICAL DATA: Childhood Environment: Stressful Childhood Environment Additional Comments: Pt youngest brother of Cancer at the age of 8; her father of a heart attack at the age of 16. Pt mother passed a year and a half ago. Pt has one living sister, who lives in [place]. They aren't super close but talk couple times a year. Pt childhood was difficult as her mother suffered from depression with the deaths of her son and . Psychological Abuse: None Additional Comments: None according to son. Drug Abuse History last 12 months: No Comment: no alcohol concerns. 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 service: N was in for 23 years [employer] background: [employer]. Not very active in the latter-day anymore. Sexual orientation: Heterosexual Educational Level: Bachelors degree Past/Present Interests/Hobbies: Gardening, magazines Financial support/resources: [employer]ci/Pension Social Security Monthly income: n/a Person handling finances: Pt handles finances and son oversees them. Do you have a history of legal problems: N Cultural considerations: None SOCIAL RELATIONSHIPS-CURRENT/PAST: Psychiatrist: PCP: Kelsey Zamora Counselor/Therapist: [facility]: Support Group: Sec Reporting Consultant/Comb Machine Operator: Other relationships: STRENGTHS & WEAKNESSES: Patient's strengths: Good family support Approachable Other patient strengths: Patient's weaknesses: Health problems Other patient weaknesses: sudden decrease in cognition PRELIMINARY PLAN OF TREATMENT: Preliminary plan: Dec. Hallucination/Delus Medication Stabilization Monitor Med Effects Other preliminary treatment comments: DISCHARGE PLANNING: Discharge planning/disposition: Home Additional discharge needs identified: Pt family will plan to have her come home once she is stabilized. ADDITIONAL INFORMATION: Other Pertinent Data: SW completed pt PSA with son, Cliff, who reports that they do not feel pt mental status has anything to do with Dementia or any cognitive diagnosis. He believes that it is fully medical as pt has the UTI and is dehydrated and needs to be cleared of her symptoms. "once those things are treated, she'll be fine". Pt son highly recommends that the team get records from the Primary Care as she also does not believe this is a psychological issue but a medical issue. Pt son will plan to participate in tx team on .
--- NOTE | 2019-07-08 13:06 | NUR ---
NURSING NOTE PT WAS IN DAY ROOM THIS AM UPON ASSESSMENT AND MEDICATION ADMINISTRATION. PT WAS A&O TO SELF ONLY. PT STATED THIS AM THAT BOTH OF HER CATS THIS AM. PT CONTINUES TO BE VERY RESTLESS. PT WAS WORRIED ABOUT OTHERS AT MEALS, FOR EXAMPLE THEY AREN'T EATING, THEY NEED A DRINK, ETC. PT K WAS 3.4 SO LASIX HELD AND K RECHECKED AT 3.5. PT STATES WE HAVE HER COMPUTER ON THE SHELF. PT IS COMPLIANT WITH MEDS. WILL ,CONTINUE TO MONITOR. FAN GUERRERO
--- NOTE | 2019-07-08 13:19 | NUR ---
Activity Therapy Assessment Completed based on observation, attempted interview and [facility] notes. Pt. sitting in day room when therapist approached. Pt. immediately speaking rapidly, difficult to follow speech, and eventually said 'I don't have time for you. I have to go'. Pt. had to be redirected to stay in her and chair, was resistant to redirection and had to be removed from the day room. Pt. often in day room, rarely engages in groups, often restless, and impulsive. Pt. uses a Broda chair and is unable to to walk due to a broken pelvis she is recovering from. Her change in mental status is recent. Pt. was formerly her 's caregiver as he has dementia. At this time, Pt. son has assumed role of DPOA. Pt. is often delusional, confused about where she is and what the situation is. Pt. resistant to cares and redirection. Initial goal aimed to increase leisure engagement: Pt. will engage in three Activity Therapy groups per week. Addendum: 07/10/19 at 1207 by MIKE KING ACT Goal Changed 07/10: Pt. will engage in one Activity Therapy group per day.
[2019-07-08 16:08] VITALS: BP 136/61
--- NOTE | 2019-07-08 18:30 | EKG ---
[address] [address] Test Date: 2019-07-05 Test Time: 04:51:10 Pat Name: AMAN HAMM Department: Room: [address] [place] [address] Gender: F Seed Expert: : 1940 Requested By: PAUL SHER Order Number: [id number] Reading MD: Azam Mcclain Measurements Intervals [place] Rate: 96 P: 0 OK: 98 QRS: 18 QRSD: 74 T: 60 QT: 364 QTc: 461 Interpretive Statements SINUS RHYTHM VENTRICULAR PREMATURE COMPLEX(ES) ABNORMAL ECG RI6.02 No previous ECG available for comparison Electronically Signed On 07-11-2019 9:43:39 CDT by Azam Mcclain
[2019-07-08] MEDS: MELATONIN 3 MG TABLET PO SCH (19:24)
[2019-07-08] MEDS: MIRTAZAPINE 15 MG TABLET PO SCH (19:24)
--- NOTE | 2019-07-08 19:32 | NUR ---
HS losartan 100mg held, had dose this am.
[2019-07-08] MEDS: LACTOBACILLUS RHAMNOSUS GG 1 CAPSULE. PO SCH (20:03)
--- NOTE | 2019-07-08 21:52 | PDOC ---
Exam Note: Flavio Note: Please also refer to the separate dictated note~for this date of service dictated separately.~Patient seen individually. Discussed the patient with Nursing staff reviewed the chart.~Reviewed interim history and current functioning. Reviewed vital signs,~Labs/ Radiology~and current medications noted below. Continue current treatment with the changes noted in the dictated addendum note Assessment: Vital Signs/I&O: Vital Signs Date Time Temp Pulse Resp B/P (MAP) Pulse Ox O2 Delivery O2 Flow Rate FiO2 07/08/19 19:32 96 136/61 07/08/19 16:08 97.4 19 97 07/08/19 06:16 Room Air I & O 07/07/19 07/07/19 07/08/19 15:00 23:00 07:00 Intake Total 720 ml 60 ml 100 ml Balance 720 ml 60 ml 100 ml Labs: Laboratory Tests Test 07/08/19 07:47 07/08/19 08:48 Glucose (Fingerstick) 133 mg/dL (70-99) H Potassium Level 3.5 mmol/L (3.5-5.1) Current Medications: Meds: Current Medications Medications (Trade) Dose Ordered Sig/Sirisha Route PRN Reason Start Time Stop Time Status Last Admin Dose Admin Lactobacillus Rhamnosus (Culturelle) 1 cap BID PO 07/08/19 21:00 07/08/19 20:03 I have reviewed the current psychotropics carefully including drug interactions. Risk benefit ratio favors no change other than as noted in my dictated progress note. Diagnosis: Problems: (1) Anxiety disorder (2) Dementia, vascular, with delusions (3) Dementia, vascular, with depression (4) Dementia in Alzheimer's disease with delusions (5) Dementia in Alzheimer's disease with depression (6) Impulse control disorder (7) Delirium due to general medical condition PAUL SHER MD Jul 08, 2019 21:51
--- NOTE | 2019-07-09 00:46 | NUR ---
Last evening pt in day room in [facility], she was social pleasant and cooperative with meds taken whole. She is very restless and confused but has had no behaviors.
--- NOTE | 2019-07-09 02:08 | PN ---
DATE: 07/07/2019 PSYCHIATRIC PROGRESS NOTE This late entry, 07/07/2019, covers elements not covered in my initial note. SUBJECTIVE: I met with the patient in evening of 07/07/2019. She slept 3-1/2 hours previous night. UA culture was negative. She remains confused, believed the year was 1919, later corrected it to 1979. Reportedly, per nursing staff, she has been reliving the of various family members, trying to find certificate for her mother. She ambulated with physical therapy staff. She was putting herself on the floor on 07/07/2019, impulsive. CT head done at [facility] will be obtained to review for any acute changes. REVIEW OF SYSTEMS: Ambulation impaired, in Broda chair. No CV, , pulmonary, eye, ENT system symptoms on review. Reliability poor. MENTAL STATUS EXAM: Oriented to herself. Insight, judgment, recent and remote memory, attention, concentration, fund of knowledge poor, consistent with her diagnosis mentioned in my initial note. PLAN: Since she is not sleeping well, we will increase her Remeron from 7.5 at bedtime to 15 mg at bedtime. We will go ahead and stop the Seroquel 25 mg b.i.d. Continue Zoloft, melatonin, along with Zyprexa p.r.n. and she remains on Seroquel 100 mg at 1800. Adjust further as clinically indicated. PAUL SHER MD DR: JACE/michelle JOB#: [id number] / [id number]
[2019-07-09 05:50] VITALS: BP 161/82
[2019-07-09] MEDS: ASPIRIN ENTERIC COATED 81 MG TABLET.DR. PO SCH (07:37)
[2019-07-09] MEDS: CEFDINIR 300 MG CAPSULE PO SCH (07:37)
[2019-07-09] MEDS: LACTOBACILLUS RHAMNOSUS GG 1 CAPSULE. PO SCH ×2 (07:37→19:23)
[2019-07-09] MEDS: UBIDECARENONE 50 MG CAPSULE. PO SCH ×2 (07:37→19:24)
[2019-07-09] MEDS: FAMOTIDINE 20 MG TABLET PO SCH ×2 (07:37→19:26)
[2019-07-09] MEDS: FUROSEMIDE 20 MG TABLET PO SCH (07:37)
[2019-07-09] MEDS: metFORMIN 500 MG TABLET PO SCH ×2 (07:37→16:45)
[2019-07-09] MEDS: CHOLECALCIFEROL (VITAMIN D3) 1,000 UNIT TABLET PO SCH (07:37)
[2019-07-09] MEDS: FOLIC ACID 1 MG TABLET PO SCH (07:37)
[2019-07-09] MEDS: SERTRALINE 100 MG TABLET. PO SCH (07:37)
[2019-07-09] MEDS: MAGNESIUM CHLORIDE ER 64 MG TABLET.ER PO SCH (07:37)
[2019-07-09] MEDS: CARVEDILOL 3.125 MG TABLET PO SCH ×2 (07:38→16:45)
[2019-07-09] MEDS: hydrALAZINE 25 MG TABLET PO SCH ×3 (07:38→19:26)
[2019-07-09] MEDS: POTASSIUM CHLORIDE 20 MEQ TABLET.ER. PO SCH (07:39)
[2019-07-09] MEDS: C.DIFF MED SCREEN BY RX. MC SCH (07:46)
--- NOTE | 2019-07-09 10:10 | NUR ---
SW received call from pt Syed who wanted to know if we had an idea as to when pt would discharge. RICK reiterated that pt would have tx team tomorrow and SW would give pt a call. Pt asked if today was Sunday; RICK informed pt that it was Sunday and SW would call him tomorrow with an update after the meeting.
--- NOTE | 2019-07-09 10:24 | NUR ---
Pt continues to be restless in her broda. Pleasant and cooperative with medications and assessment. A/O to name and , pt states she is in [place].
[2019-07-09 15:47] VITALS: BP 123/71
[2019-07-09] MEDS: LOSARTAN 50 MG TABLET. PO SCH (19:25)
[2019-07-09] MEDS: MELATONIN 3 MG TABLET PO SCH (19:25)
[2019-07-09] MEDS: MAGNESIUM HYDROXIDE 2,400 MG/30 ML ORAL.SUSP. PO PRN (19:26)
[2019-07-09] MEDS: MIRTAZAPINE 15 MG TABLET PO SCH (19:26)
--- NOTE | 2019-07-09 20:20 | NUR ---
Pt in day room social and pleasant, very confused took meds crushed in pudding. No behaviors.
--- NOTE | 2019-07-09 21:26 | PDOC ---
Exam Note: Flavio Note: Please also refer to the separate dictated note~for this date of service dictated separately.~Patient seen individually. Discussed the patient with Nursing staff reviewed the chart.~Reviewed interim history and current functioning. Reviewed vital signs,~Labs/ Radiology~and current medications noted below. Continue current treatment with the changes noted in the dictated addendum note Assessment: Vital Signs/I&O: Vital Signs Date Time Temp Pulse Resp B/P (MAP) Pulse Ox O2 Delivery O2 Flow Rate FiO2 07/09/19 19:26 104 123/71 07/09/19 15:47 97.4 20 95 07/08/19 06:16 Room Air I & O 07/08/19 07/08/19 07/09/19 15:00 23:00 07:00 Intake Total 720 ml 600 ml Balance 720 ml 600 ml Labs: Laboratory Tests Test 07/09/19 07:11 Glucose (Fingerstick) 117 mg/dL (70-99) H Current Medications: Meds: Current Medications Medications (Trade) Dose Ordered Sig/Sirisha Route PRN Reason Start Time Stop Time Status Last Admin Dose Admin Potassium Chloride (Klor-Con) 20 meq [id number] PO 07/09/19 08:00 07/09/19 07:39 I have reviewed the current psychotropics carefully including drug interactions. Risk benefit ratio favors no change other than as noted in my dictated progress note. Diagnosis: Problems: (1) Anxiety disorder (2) Dementia, vascular, with delusions (3) Dementia, vascular, with depression (4) Dementia in Alzheimer's disease with delusions (5) Dementia in Alzheimer's disease with depression (6) Impulse control disorder (7) Delirium due to general medical condition PAUL SHER MD Jul 09, 2019 21:26
--- NOTE | 2019-07-09 23:08 | PN ---
DATE: 07/08/2019 PSYCHIATRY PROGRESS NOTE This late entry, 07/08, covers elements not covered in my initial note. SUBJECTIVE: I met with the patient evening of 07/08. The patient slept 4-1/2 hours previous night. She continues to have occasional hallucinations of the cat and a cat. Remains anxious, distractible, talking about "we have a computer." CT head from [facility] has been requested. Appetite is somewhat poor. REVIEW OF SYSTEMS: Ambulation impaired, in Broda chair. No CV, , pulmonary, eye, ENT system symptoms on review. Reliability poor. MENTAL STATUS EXAMINATION: Oriented to herself. Insight, judgment, recent and remote memory, attention, concentration, fund of knowledge poor, consistent with her diagnosis. She was very hyperverbal, talking at length about something I could not follow along with, with respect to family matters and relatives, somewhat disorganized. LABORATORY DATA: Reviewed. IMPRESSION: Psychotic disorder, unspecified; delirium, unspecified; major neurocognitive disorder; Alzheimer, vascular with delirium, delusions, depression, behavioral disturbance; anxiety disorder, unspecified; impulse control disorder, unspecified. PLAN: We will go ahead and stop her Seroquel 25 mg b.i.d. We had previously stopped the bedtime Seroquel dosage, but maintain Zoloft, melatonin, Remeron along with Zyprexa p.r.n. and reassess. Remeron is currently 15 mg p.o. at bedtime. Repeat UA 07/05 was negative. PAUL SHER MD DR: JACE/michelle JOB#: [id number] / [id number]
[2019-07-10 05:43] VITALS: BP 220/97
[2019-07-10] MEDS: CARVEDILOL 3.125 MG TABLET PO SCH ×2 (05:47→17:00)
--- NOTE | 2019-07-10 06:44 | NUR ---
Dressing of area on plantar surface of rt foot changed. Area cleaned with betadine covered with telfa, post op shoe and arch support applied. Area without drainage pt tolerated procedure well
[2019-07-10 07:00] VITALS: BP 177/70
[2019-07-10] MEDS: ASPIRIN ENTERIC COATED 81 MG TABLET.DR. PO SCH (08:16)
[2019-07-10] MEDS: POTASSIUM CHLORIDE 20 MEQ TABLET.ER. PO SCH (08:16)
[2019-07-10] MEDS: SERTRALINE 100 MG TABLET. PO SCH (08:16)
[2019-07-10] MEDS: CHOLECALCIFEROL (VITAMIN D3) 1,000 UNIT TABLET PO SCH (08:16)
[2019-07-10] MEDS: metFORMIN 500 MG TABLET PO SCH ×2 (08:16→17:00)
[2019-07-10] MEDS: FOLIC ACID 1 MG TABLET PO SCH (08:16)
[2019-07-10] MEDS: FUROSEMIDE 20 MG TABLET PO SCH (08:17)
[2019-07-10] MEDS: FAMOTIDINE 20 MG TABLET PO SCH ×2 (08:17→20:25)
[2019-07-10] MEDS: hydrALAZINE 25 MG TABLET PO SCH ×3 (08:17→20:24)
[2019-07-10] MEDS: MAGNESIUM CHLORIDE ER 64 MG TABLET.ER PO SCH (08:17)
[2019-07-10] MEDS: UBIDECARENONE 50 MG CAPSULE. PO SCH ×2 (08:17→20:24)
[2019-07-10] MEDS: LACTOBACILLUS RHAMNOSUS GG 1 CAPSULE. PO SCH ×2 (08:17→20:25)
[2019-07-10] MEDS: C.DIFF MED SCREEN BY RX. MC SCH (09:00)
--- NOTE | 2019-07-10 10:18 | NUR ---
WEEKLY NOTE: Pt is eating 75% of meals and sleeping roughly 6 hours on average. Pt has moderate participation in group activities. Pt is anxious, restless and appears impulsive at times. Pt reports needing to clean and reports having things to complete. Pt son, Cliff, who participated in tx team via telephone. Pt son reports that pt has been fine until May 29 which is when she fell and broke her pelvis. Pt then declined in which she was not taking her medications appropriately, got dehydrated and had a UTI. Pt son does not feel that pt has dementia as, she has never been confused. Pt came in on a high dose of Seroquel, which has been discontinued. Pt is taking Zoloft and Remeron. ELOS for the end of next week or early part of the week after.
--- NOTE | 2019-07-10 10:22 | NUR ---
WEEKLY ACTIVITY THERAPY NOTE Date of Admission: 07/04/2019 Date of AT Assessment: 07/07/2019 Goal aimed: to increase leisure engagement Initial Goal: Pt. will engage in three Activity Therapy groups per week. Weekly progress towards goal: exceeded- five groups this week Group participation level: varies- generally moderate Weekly highlights: seemed to enjoy Balloon Bop and High/Low card game Behaviors observed: often restless, tries to stand unassisted or leave Broda chair, delusions (I need to clean, I need to find my things, I need to help them, etc.) often right before lunch, often ropes peers into getting her out of her chair Plan: change goal- Pt. will engage in one Activity Therapy group per day. Beneficial adaptations: 'popcorn style' groups, physical engagement- gross motor, staff support during group sessions
--- NOTE | 2019-07-10 14:00 | NUR ---
Nursing Note: Pt calm, confused, compliant w/ meds crushed. Pt alert to self only, less restless, cooperative w/ cares. Pt believes that she traveled with her brother or through [place] last night. Pt cooperated with PT/OT.
[2019-07-10 16:29] VITALS: BP 167/82
[2019-07-10] MEDS: MELATONIN 3 MG TABLET PO SCH (20:24)
[2019-07-10] MEDS: MIRTAZAPINE 15 MG TABLET PO SCH (20:25)
[2019-07-10] MEDS: LOSARTAN 50 MG TABLET. PO SCH (20:25)
--- NOTE | 2019-07-10 21:33 | PDOC ---
Exam Note: Flavio Note: Please also refer to the separate dictated note~for this date of service dictated separately.~Patient seen individually. Discussed the patient with Nursing staff reviewed the chart.~Reviewed interim history and current functioning. Reviewed vital signs,~Labs/ Radiology~and current medications noted below. Continue current treatment with the changes noted in the dictated addendum note Assessment: Vital Signs/I&O: Vital Signs Date Time Temp Pulse Resp B/P (MAP) Pulse Ox O2 Delivery O2 Flow Rate FiO2 07/10/19 20:25 87 167/82 07/10/19 16:29 97.8 18 99 Room Air I & O 07/09/19 07/09/19 07/10/19 15:00 23:00 07:00 Intake Total 840 ml 240 ml 240 ml Balance 840 ml 240 ml 240 ml Labs: Laboratory Tests Test 07/10/19 07:33 Glucose (Fingerstick) 114 mg/dL (70-99) H Current Medications: I have reviewed the current psychotropics carefully including drug interactions. Risk benefit ratio favors no change other than as noted in my dictated progress note. Diagnosis: Problems: (1) Anxiety disorder (2) Dementia, vascular, with delusions (3) Dementia, vascular, with depression (4) Dementia in Alzheimer's disease with delusions (5) Dementia in Alzheimer's disease with depression (6) Impulse control disorder (7) Delirium due to general medical condition PAUL SHER MD Jul 10, 2019 21:33
--- NOTE | 2019-07-11 00:35 | NUR ---
Pt sitting up in Broda chair in day room at shift change. Pt calm, less restless this evening, pleasantly confused and interactive. Pt cooperative with assessment and compliant with medications administered crushed.
[2019-07-11] MEDS: CARVEDILOL 3.125 MG TABLET PO SCH ×2 (05:01→17:13)
[2019-07-11] MEDS: hydrALAZINE 25 MG TABLET PO SCH ×2 (05:01→13:51)
[2019-07-11 05:36] VITALS: BP 215/70
[2019-07-11] MEDS: ACETAMINOPHEN 500 MG TABLET PO PRN (06:14)
[2019-07-11 06:27] LABS: BASO # 0.1 x10^3/uL (0.0-0.2); BASO % 1 % (0-3); EOS # 0.4 x10^3/uL (0.0-0.7); EOS % 7 % (0-3); HEMATOCRIT 32.9 % (36.0-47.0); HEMOGLOBIN 10.9 g/dL (12.0-15.5); LYMPH # 1.3 x10^3/uL (1.0-4.8); LYMPH % 20 % (24-48); MEAN CORPUSCULAR HEMOGLOBIN 28 pg (25-35); MEAN CORPUSCULAR HGB CONC 33 g/dL (31-37); MEAN CORPUSCULAR VOLUME 86 fL (79-100); MONO # 0.9 x10^3/uL (0.0-1.1); MONO % 15 % (0-9); NEUT # 3.6 x10^3uL (1.8-7.7); NEUT % 57 % (31-73); PLATELET COUNT 351 x10^3/uL (140-400); RED BLOOD COUNT 3.85 x10^6/uL (3.50-5.40); RED CELL DISTRIBUTION WIDTH 15.1 % (11.5-14.5); WHITE BLOOD COUNT 6.3 x10^3/uL (4.0-11.0)
[2019-07-11 06:44] LABS: ALBUMIN 2.7 g/dL (3.4-5.0); ALBUMIN/GLOBULIN RATIO 0.9 (1.0-1.7); CALCIUM 9.8 mg/dL (8.5-10.1); GFR 53.8; MAGNESIUM 1.6 mg/dL (1.8-2.4); POTASSIUM 3.5 mmol/L (3.5-5.1); TOTAL BILIRUBIN 0.3 mg/dL (0.2-1.0); TOTAL PROTEIN 5.8 g/dL (6.4-8.2)
[2019-07-11 07:39] VITALS: BP 188/79
[2019-07-11] MEDS: metFORMIN 500 MG TABLET PO SCH ×2 (08:08→17:13)
[2019-07-11] MEDS: FOLIC ACID 1 MG TABLET PO SCH (08:08)
[2019-07-11] MEDS: FUROSEMIDE 20 MG TABLET PO SCH (08:08)
[2019-07-11] MEDS: UBIDECARENONE 50 MG CAPSULE. PO SCH ×2 (08:08→19:22)
[2019-07-11] MEDS: SERTRALINE 100 MG TABLET. PO SCH (08:08)
[2019-07-11] MEDS: ASPIRIN ENTERIC COATED 81 MG TABLET.DR. PO SCH (08:08)
[2019-07-11] MEDS: FAMOTIDINE 20 MG TABLET PO SCH ×2 (08:08→19:23)
[2019-07-11] MEDS: MAGNESIUM CHLORIDE ER 64 MG TABLET.ER PO SCH (08:09)
[2019-07-11] MEDS: CHOLECALCIFEROL (VITAMIN D3) 1,000 UNIT TABLET PO SCH (08:09)
[2019-07-11] MEDS: POTASSIUM CHLORIDE 20 MEQ TABLET.ER. PO SCH (08:09)
[2019-07-11] MEDS: LACTOBACILLUS RHAMNOSUS GG 1 CAPSULE. PO SCH ×2 (08:09→19:22)
[2019-07-11] MEDS: C.DIFF MED SCREEN BY RX. MC SCH (10:30)
--- NOTE | 2019-07-11 10:30 | NUR ---
Nursing Note: Pt had large firm BM. This not made aware, so no specimen sent to lab. However, stool was firm.
[2019-07-11 13:45] VITALS: BP 124/60
--- NOTE | 2019-07-11 15:42 | NUR ---
Nursing Note: Pt rec Hydralazine 25mg @ 1400 and latest BP 124/60 pulse 83; therefore, non-administered 1515 dose of Hydralazine 50mg which is an increase. Pt will rec 2100 dose of 50mg tonight.
--- NOTE | 2019-07-11 15:47 | NUR ---
Nursing Note: Pt in dining room interactive w/ staff, pleasant, very confused, took meds crushed in pudding. No behaviors this shift.
[2019-07-11 16:20] VITALS: BP 176/72
[2019-07-11] MEDS: MELATONIN 3 MG TABLET PO SCH (19:22)
[2019-07-11] MEDS: LOSARTAN 50 MG TABLET. PO SCH (19:22)
[2019-07-11] MEDS: MIRTAZAPINE 15 MG TABLET PO SCH (19:23)
--- NOTE | 2019-07-11 21:21 | NUR ---
Pt sitting up in Broda chair in the day room at shift change. Pt calm, pleasant, and less restless this evening. Pt spoke to on the phone this evening. Pt cooperative with assessment and compliant with medications administered crushed in pudding.
--- NOTE | 2019-07-11 21:36 | PDOC ---
Exam Note: Flavio Note: Please also refer to the separate dictated note~for this date of service dictated separately.~Patient seen individually. Discussed the patient with Nursing staff reviewed the chart.~Reviewed interim history and current functioning. Reviewed vital signs,~Labs/ Radiology~and current medications noted below. Continue current treatment with the changes noted in the dictated addendum note Assessment: Vital Signs/I&O: Vital Signs Date Time Temp Pulse Resp B/P (MAP) Pulse Ox O2 Delivery O2 Flow Rate FiO2 07/11/19 19:32 86 176/72 07/11/19 16:20 97.8 16 98 07/11/19 13:45 Room Air I & O 07/10/19 07/10/19 07/11/19 15:00 23:00 07:00 Intake Total 420 ml 240 ml 240 ml Balance 420 ml 240 ml 240 ml Labs: Laboratory Tests Test 07/11/19 06:11 07/11/19 07:27 White Blood Count 6.3 x10^3/uL (4.0-11.0) Red Blood Count 3.85 x10^6/uL (3.50-5.40) Hemoglobin 10.9 g/dL (12.0-15.5) L Hematocrit 32.9 % (36.0-47.0) L Mean Corpuscular Volume 86 fL (79-100) Mean Corpuscular Hemoglobin 28 pg (25-35) Mean Corpuscular Hemoglobin Concent 33 g/dL (31-37) Red Cell Distribution Width 15.1 % (11.5-14.5) H Platelet Count 351 x10^3/uL (140-400) Neutrophils (%) (Auto) 57 % (31-73) Lymphocytes (%) (Auto) 20 % (24-48) L Monocytes (%) (Auto) 15 % (0-9) H Eosinophils (%) (Auto) 7 % (0-3) H Basophils (%) (Auto) 1 % (0-3) Neutrophils # (Auto) 3.6 x10^3uL (1.8-7.7) Lymphocytes # (Auto) 1.3 x10^3/uL (1.0-4.8) Monocytes # (Auto) 0.9 x10^3/uL (0.0-1.1) Eosinophils # (Auto) 0.4 x10^3/uL (0.0-0.7) Basophils # (Auto) 0.1 x10^3/uL (0.0-0.2) Sodium Level 141 mmol/L (136-145) Potassium Level 3.5 mmol/L (3.5-5.1) Chloride Level 108 mmol/L (98-107) H Carbon Dioxide Level 26 mmol/L (21-32) Anion Gap 7 (6-14) Blood Urea Nitrogen 21 mg/dL (7-20) H Creatinine 1.0 mg/dL (0.6-1.0) Estimated GFR (Cockcroft-Gault) 53.8 BUN/Creatinine Ratio 21 (6-20) H Glucose Level 137 mg/dL (70-99) H Calcium Level 9.8 mg/dL (8.5-10.1) Magnesium Level 1.6 mg/dL (1.8-2.4) L Total Bilirubin 0.3 mg/dL (0.2-1.0) Aspartate Amino Transferase (AST) 21 U/L (15-37) Alanine Aminotransferase (ALT) 26 U/L (14-59) Alkaline Phosphatase 123 U/L (46-116) H Total Protein 5.8 g/dL (6.4-8.2) L Albumin 2.7 g/dL (3.4-5.0) L Albumin/Globulin Ratio 0.9 (1.0-1.7) L Glucose (Fingerstick) 133 mg/dL (70-99) H Current Medications: Meds: Current Medications Medications (Trade) Dose Ordered Sig/Sirisha Route PRN Reason Start Time Stop Time Status Last Admin Dose Admin Hydralazine HCl (Apresoline) 50 mg TID PO 07/11/19 15:15 07/11/19 19:32 I have reviewed the current psychotropics carefully including drug interactions. Risk benefit ratio favors no change other than as noted in my dictated progress note. Diagnosis: Problems: (1) Anxiety disorder (2) Dementia, vascular, with delusions (3) Dementia, vascular, with depression (4) Dementia in Alzheimer's disease with delusions (5) Dementia in Alzheimer's disease with depression (6) Impulse control disorder (7) Delirium due to general medical condition PAUL SHER MD Jul 11, 2019 21:35
--- NOTE | 2019-07-11 22:27 | PN ---
DATE: 07/09/2019 PSYCHIATRIC PROGRESS NOTE This late entry 07/09/2019 covers elements not covered in my initial note. SUBJECTIVE: I met with the patient in the evening. The patient slept 6-3/4 hours previous night. She has been confused, restless, believes she is in a hospital in [facility]. She did ambulate better with physical therapy staff. Since we discontinued the Seroquel, she is less sedated. REVIEW OF SYSTEMS: Ambulation impaired, in Broda chair. No CV, , pulmonary, eye, ENT system symptoms on review. MENTAL STATUS EXAM: Oriented to herself, at times situation. Insight, judgment, recent and remote memory, attention, concentration, fund of knowledge poor, consistent with her diagnosis. IMPRESSION: Reviewed the history and history of confusion is fairly recent status post pelvic fracture and use of narcotics and delirium unspecified and secondary to general medical condition. She may have had incipient dementia prior which took a sudden turn for the worse after the above insult. PLAN: We will continue her current psychotropics, keep her off the Seroquel. Maintain Zoloft, Remeron along with melatonin for now and Zyprexa as p.r.n. Adjust further as clinically indicated. PAUL SHER MD DR: JACE/michelle JOB#: [id number] / [id number]
--- NOTE | 2019-07-11 22:37 | PN ---
DATE: 07/10/2019 PSYCHIATRIC PROGRESS NOTE This late entry 07/10/2019 covers elements not covered in my initial note. SUBJECTIVE: I met with the patient evening of 07/10/2019 and staffed at a treatment team meeting with the entire team in the morning and patient's son, Skip attended this lengthy conference. Reviewed history at length. The son does not believe the patient is demented since she was quite high functioning till a few weeks back taking care of her at home consequent with Alzheimer disease. She sustained a pelvic fracture on 05/29/2019, oral input reduced significantly after that and she was on narcotics and the confusion has significantly worsened since then. CT head, MRI head done, were reviewed by me and reflective of atrophy, but no acute changes from [facility]. She did have a history of head injury 5 years previously secondary to a fall. Sleeping about 7-1/2 hours. Appetite 50-75%, which is an improvement. Takes her medications, restless, confused. In the past, she has been somewhat obsessive. REVIEW OF SYSTEMS: Ambulation impaired, in Broda chair. No CV, , pulmonary, eye, ENT system symptoms on review. MENTAL STATUS EXAM: Oriented to herself. Insight, judgment, recent and remote memory, attention, concentration, fund of knowledge poor, consistent with her diagnosis mentioned in my initial note. IMPRESSION: Delirium, unspecified versus due to general medical condition; anxiety disorder, unspecified; possible dementia, early Alzheimer's vascular with delusion, depression. Rest unchanged. PLAN: We had a lengthy discussion about treatment options discussed with the son. We will keep her off the Seroquel for now. Maintain Remeron, Zoloft, along with melatonin for insomnia, ambulate with physical therapy. Make further adjustments as clinically indicated. MAN Radha SHER MD DR: JACE/michelle JOB#: [id number] / [id number]
[2019-07-12 05:18] VITALS: BP 209/73
[2019-07-12] MEDS: ACETAMINOPHEN 500 MG TABLET PO PRN (05:19)
[2019-07-12] MEDS: LACTOBACILLUS RHAMNOSUS GG 1 CAPSULE. PO SCH ×2 (07:41→20:01)
[2019-07-12] MEDS: UBIDECARENONE 50 MG CAPSULE. PO SCH ×2 (07:41→20:01)
[2019-07-12] MEDS: FUROSEMIDE 20 MG TABLET PO SCH (07:42)
[2019-07-12] MEDS: SERTRALINE 100 MG TABLET. PO SCH (07:42)
[2019-07-12] MEDS: POTASSIUM CHLORIDE 20 MEQ TABLET.ER. PO SCH (07:42)
[2019-07-12] MEDS: ASPIRIN ENTERIC COATED 81 MG TABLET.DR. PO SCH (07:42)
[2019-07-12] MEDS: CHOLECALCIFEROL (VITAMIN D3) 1,000 UNIT TABLET PO SCH (07:42)
[2019-07-12] MEDS: MAGNESIUM CHLORIDE ER 64 MG TABLET.ER PO SCH (07:42)
[2019-07-12] MEDS: FOLIC ACID 1 MG TABLET PO SCH (07:42)
[2019-07-12] MEDS: metFORMIN 500 MG TABLET PO SCH ×2 (07:43→16:30)
[2019-07-12] MEDS: FAMOTIDINE 20 MG TABLET PO SCH ×2 (07:43→19:37)
[2019-07-12] MEDS: CARVEDILOL 3.125 MG TABLET PO SCH ×2 (07:45→16:31)
[2019-07-12] MEDS: C.DIFF MED SCREEN BY RX. MC SCH (09:00)
--- NOTE | 2019-07-12 14:50 | NUR ---
Has been alert and cooperative with cares. Reported her buttocks was becoming numb. Provided a cushion to sit on, as well as to prop her legs us when sitting. Out in [place] this day, restless at times, but not adverse behaviors noted.
[2019-07-12 16:00] VITALS: BP 145/73
[2019-07-12] MEDS: MELATONIN 3 MG TABLET PO SCH (20:01)
[2019-07-12] MEDS: MIRTAZAPINE 15 MG TABLET PO SCH (20:01)
[2019-07-12] MEDS: LOSARTAN 50 MG TABLET. PO SCH (20:03)
--- NOTE | 2019-07-12 22:46 | NUR ---
Nursing Note: Assumed care of pt. this evening, she was sitting out in the day room in her broda. She has been calm, pleasant, restless at times, and cooperative. She has been compliant with taking her HS meds crushed in pudding this evening. No agitation or aggression noted at this time.
--- NOTE | 2019-07-12 22:52 | PDOC ---
Exam Note: Flavio Note: Please also refer to the separate dictated note~for this date of service dictated separately.~Patient seen individually. Discussed the patient with Nursing staff reviewed the chart.~Reviewed interim history and current functioning. Reviewed vital signs,~Labs/ Radiology~and current medications noted below. Continue current treatment with the changes noted in the dictated addendum note Assessment: Vital Signs/I&O: Vital Signs Date Time Temp Pulse Resp B/P (MAP) Pulse Ox O2 Delivery O2 Flow Rate FiO2 07/12/19 20:03 87 180/75 07/12/19 16:00 97.4 20 99 07/12/19 05:18 Room Air I & O 07/11/19 07/11/19 07/12/19 15:00 23:00 07:00 Intake Total 720 ml 360 ml Balance 720 ml 360 ml Labs: Laboratory Tests Test 07/12/19 07:09 Glucose (Fingerstick) 126 mg/dL (70-99) H Current Medications: I have reviewed the current psychotropics carefully including drug interactions. Risk benefit ratio favors no change other than as noted in my dictated progress note. Diagnosis: Problems: (1) Anxiety disorder (2) Dementia, vascular, with delusions (3) Dementia, vascular, with depression (4) Dementia in Alzheimer's disease with delusions (5) Dementia in Alzheimer's disease with depression (6) Impulse control disorder (7) Delirium due to general medical condition PAUL SHER MD Jul 12, 2019 22:52
[2019-07-13] MEDS: ACETAMINOPHEN 325 MG TABLET PO PRN (05:05)
[2019-07-13 05:31] VITALS: BP 218/71
[2019-07-13] MEDS: CARVEDILOL 3.125 MG TABLET PO SCH ×2 (05:59→16:52)
[2019-07-13] MEDS: metFORMIN 500 MG TABLET PO SCH ×2 (07:51→16:51)
[2019-07-13] MEDS: ASPIRIN ENTERIC COATED 81 MG TABLET.DR. PO SCH (07:51)
[2019-07-13] MEDS: FOLIC ACID 1 MG TABLET PO SCH (07:51)
[2019-07-13] MEDS: UBIDECARENONE 50 MG CAPSULE. PO SCH ×2 (07:52→19:46)
[2019-07-13] MEDS: FUROSEMIDE 20 MG TABLET PO SCH (07:52)
[2019-07-13] MEDS: SERTRALINE 100 MG TABLET. PO SCH (07:52)
[2019-07-13] MEDS: MAGNESIUM CHLORIDE ER 64 MG TABLET.ER PO SCH (07:52)
[2019-07-13] MEDS: CHOLECALCIFEROL (VITAMIN D3) 1,000 UNIT TABLET PO SCH (07:52)
[2019-07-13] MEDS: FAMOTIDINE 20 MG TABLET PO SCH ×2 (07:52→19:46)
[2019-07-13] MEDS: POTASSIUM CHLORIDE 20 MEQ TABLET.ER. PO SCH (07:52)
[2019-07-13] MEDS: LACTOBACILLUS RHAMNOSUS GG 1 CAPSULE. PO SCH ×2 (07:52→19:46)
[2019-07-13] MEDS: C.DIFF MED SCREEN BY RX. MC SCH (09:00)
--- NOTE | 2019-07-13 15:32 | NUR ---
Met with pt's son a lunchtime, per report it was requested we ask them their observation of her behavior and cognitive functioning. Son states her orientation was "perfectly normal" prior to her fall on May 29." The pt. had accurately reported to me yesterday the details of that fall and how it happened. Son states since then, pain medications, and UTI had caused her increasing confusion. Currently, as of today, he states she seems to not remember short term, and is focusing on things happening in her distant past, relationship with mother, confusion about where she is, where her is. They tried to facetime on the phone with her , and after about 5 minutes she could not focus or engage in the conversation. He noted she thinks she is at home, and thinks she has to help everyone. Offers to get up and get her son and daughter in law a drink. Does not recognize her limitations or have a sense of reality of situation. Pt. continues to exhibit no impulse control and requires constant redirection for transfers. Her speech is clear and oriented to self. Recognizes friends and family when they arrive. Son is only sibling near to provide care for both his father and mother. States a neighbor has recently built a ramp to the front door, and they have inhome caregivers arranged auto parts professional. He is hoping his mother will regain her baseline level of functioning prior to May as she was the primary caregiver for his dad. Encouraged him to work with SW. for all future planning. Reassurance provided and questions answered about dementia and markers used to predict future improvement or not.
[2019-07-13 15:33] VITALS: BP 162/69
[2019-07-13] MEDS: MIRTAZAPINE 15 MG TABLET PO SCH (19:46)
[2019-07-13] MEDS: MELATONIN 3 MG TABLET PO SCH (19:46)
[2019-07-13] MEDS: LOSARTAN 50 MG TABLET. PO SCH (19:47)
--- NOTE | 2019-07-13 20:56 | PN ---
DATE: 07/11/2019 PSYCHIATRIC PROGRESS NOTE This late entry of 07/11/2019 covers the elements not covered in my initial note. SUBJECTIVE: I met with the patient in the evening of 07/11/2019. The patient slept 6 hours previous night. She has been more awake, alert, interactive. She did receive Tylenol at 6:00 a.m. as the pain seems to worsen her confusion. REVIEW OF SYSTEMS: Ambulation impaired. No CV, , pulmonary, eye, ENT system symptoms on review. She has done better off the Seroquel. MENTAL STATUS EXAM: Oriented to herself. Insight, judgment, recent and remote memory, attention, concentration, fund of knowledge poor, consistent with her diagnosis mentioned in my initial note. PLAN: No change from initial note. MAN Radha SHER MD DR: JACE/michelle JOB#: [id number] / [id number]
--- NOTE | 2019-07-13 21:13 | PN ---
DATE: 07/12/2019 PSYCHIATRIC PROGRESS NOTE This late entry 07/12/2019 covers elements not covered in my initial note. SUBJECTIVE: I met with the patient evening of 07/12/2019. The patient slept 7-1/4 hours previous night. She has been calm, less restless, cooperative. She tries to get out of her Broda chair as a fall risk, has to be reminded not to do this. REVIEW OF SYSTEMS: No CV, , pulmonary, eye, ENT system symptoms on review. Reliability poor. MENTAL STATUS EXAM: Oriented to herself and situation. Speech is coherent, abstraction fair, computation impaired, language function intact, attention span short. Mood and affect are showing improvement and she is more animated. LABORATORY DATA: Reviewed. IMPRESSION: Unchanged from initial note. PLAN: No change from initial note. MAN Radha SHER MD DR: JACE/michelle JOB#: [id number] / [id number]
--- NOTE | 2019-07-13 21:29 | PDOC ---
Exam Note: Flavio Note: Please also refer to the separate dictated note~for this date of service dictated separately.~Patient seen individually. Discussed the patient with Nursing staff reviewed the chart.~Reviewed interim history and current functioning. Reviewed vital signs,~Labs/ Radiology~and current medications noted below. Continue current treatment with the changes noted in the dictated addendum note Assessment: Vital Signs/I&O: Vital Signs Date Time Temp Pulse Resp B/P (MAP) Pulse Ox O2 Delivery O2 Flow Rate FiO2 07/13/19 19:47 91 162/69 07/13/19 15:33 98.2 16 96 Room Air I & O 07/12/19 07/12/19 07/13/19 15:00 23:00 07:00 Intake Total 960 ml 480 ml Balance 960 ml 480 ml Labs: Laboratory Tests Test 07/13/19 07:19 Glucose (Fingerstick) 134 mg/dL (70-99) H Current Medications: I have reviewed the current psychotropics carefully including drug interactions. Risk benefit ratio favors no change other than as noted in my dictated progress note. Diagnosis: Problems: (1) Anxiety disorder (2) Dementia, vascular, with delusions (3) Dementia, vascular, with depression (4) Dementia in Alzheimer's disease with delusions (5) Dementia in Alzheimer's disease with depression (6) Impulse control disorder (7) Delirium due to general medical condition PAUL SHER MD Jul 13, 2019 21:29
[2019-07-14 05:56] VITALS: BP 190/73
[2019-07-14] MEDS: FAMOTIDINE 20 MG TABLET PO SCH ×2 (08:24→20:12)
[2019-07-14] MEDS: CHOLECALCIFEROL (VITAMIN D3) 1,000 UNIT TABLET PO SCH (08:24)
[2019-07-14] MEDS: POTASSIUM CHLORIDE 20 MEQ TABLET.ER. PO SCH (08:24)
[2019-07-14] MEDS: MAGNESIUM CHLORIDE ER 64 MG TABLET.ER PO SCH (08:24)
[2019-07-14] MEDS: ASPIRIN ENTERIC COATED 81 MG TABLET.DR. PO SCH (08:24)
[2019-07-14] MEDS: metFORMIN 500 MG TABLET PO SCH ×2 (08:25→17:20)
[2019-07-14] MEDS: SERTRALINE 100 MG TABLET. PO SCH (08:25)
[2019-07-14] MEDS: LACTOBACILLUS RHAMNOSUS GG 1 CAPSULE. PO SCH ×2 (08:25→20:12)
[2019-07-14] MEDS: FUROSEMIDE 20 MG TABLET PO SCH (08:25)
[2019-07-14] MEDS: CARVEDILOL 3.125 MG TABLET PO SCH ×2 (08:25→17:20)
[2019-07-14] MEDS: UBIDECARENONE 50 MG CAPSULE. PO SCH ×2 (08:25→20:12)
[2019-07-14] MEDS: FOLIC ACID 1 MG TABLET PO SCH (08:25)
[2019-07-14 09:15] LABS: BACTERIA,URINE MOD /HPF (0-FEW); BILIRUBIN,URINE NEG (NEG); CLARITY,URINE HAZY; COLOR,URINE YELLOW; GLUCOSE,URINE NEG (NEG); NITRITE,URINE POS (NEG); SQUAMOUS EPITHELIAL CELL,UR OCC /LPF; UROBILINOGEN,URINE 1 mg/dL (0.2 mg/dL)
--- NOTE | 2019-07-14 15:10 | NUR ---
Nursing Note: Pt in the day room, after participating in group activity during which pt's were hitting a balloon around the room to each other with music in the back ground. Pt appeared to enjoyed the group; however, soon after group ended pt became more restless, attempting to get up out of Broda, stating that she needs to go to his room to get her purse and keys so that she can go home. Unable to redirect, PRN given. Will continue to monitor.
[2019-07-14 16:04] VITALS: BP 119/63
[2019-07-14] MEDS: MAGNESIUM HYDROXIDE 2,400 MG/30 ML ORAL.SUSP. PO PRN (17:45)
--- NOTE | 2019-07-14 17:47 | NUR ---
Nursing Note: Pt had no BM this shift. LBM 07/13 small pellets. MOM given w/ prune juice.
[2019-07-14] MEDS: C.DIFF MED SCREEN BY RX. MC SCH (18:15)
[2019-07-14] MEDS: MIRTAZAPINE 15 MG TABLET PO SCH (20:12)
[2019-07-14] MEDS: MELATONIN 3 MG TABLET PO SCH (20:12)
[2019-07-14] MEDS: LOSARTAN 50 MG TABLET. PO SCH (20:14)
--- NOTE | 2019-07-14 21:37 | PDOC ---
Exam Note: Flavio Note: Please also refer to the separate dictated note~for this date of service dictated separately.~Patient seen individually. Discussed the patient with Nursing staff reviewed the chart.~Reviewed interim history and current functioning. Reviewed vital signs,~Labs/ Radiology~and current medications noted below. Continue current treatment with the changes noted in the dictated addendum note Assessment: Vital Signs/I&O: Vital Signs Date Time Temp Pulse Resp B/P (MAP) Pulse Ox O2 Delivery O2 Flow Rate FiO2 07/14/19 20:14 89 150/78 07/14/19 16:04 97.6 18 98 07/13/19 15:33 Room Air I & O 07/13/19 07/13/19 07/14/19 14:59 22:59 06:59 Intake Total 840 ml 480 ml Balance 840 ml 480 ml Labs: Laboratory Tests Test 07/14/19 07:34 07/14/19 08:40 Glucose (Fingerstick) 122 mg/dL (70-99) H Urine Collection Type Unknown Urine Color Yellow Urine Clarity Hazy Urine pH 7.0 Urine Specific [place] 1.020 Urine Protein >100 mg/dl (NEG-TRACE) Urine Glucose (UA) Neg mg/dL (NEG) Urine Ketones (Stick) Neg mg/dL (NEG) Urine Blood Trace (NEG) Urine Nitrite Pos (NEG) Urine Bilirubin Neg (NEG) Urine Urobilinogen Dipstick 1 mg/dL (0.2 mg/dL) Urine Leukocyte Esterase Trace (NEG) Urine RBC 1-2 /HPF (0-2) Urine WBC 11-20 /HPF (0-4) Urine Squamous Epithelial Cells Occ /LPF Urine Bacteria Mod /HPF (0-FEW) Current Medications: I have reviewed the current psychotropics carefully including drug interactions. Risk benefit ratio favors no change other than as noted in my dictated progress note. Diagnosis: Problems: (1) Anxiety disorder (2) Dementia, vascular, with delusions (3) Dementia, vascular, with depression (4) Dementia in Alzheimer's disease with delusions (5) Dementia in Alzheimer's disease with depression (6) Impulse control disorder (7) Delirium due to general medical condition PAUL SHER MD Jul 14, 2019 21:37
--- NOTE | 2019-07-14 22:12 | NUR ---
Nursing Note: Assumed care of pt. this evening, she was sitting in the broda out in the day room. She has been calm, pleasant, and cooperative this evening. She has been compliant with taking her HS meds crushed in pudding this evening. No signs of agitation or aggression noted at this time.
--- NOTE | 2019-07-14 23:00 | PN ---
DATE: 07/13/2019 PROGRESS NOTE This late entry of 07/13/2019 covers elements not covered in my initial note. SUBJECTIVE: I met with the patient evening of 07/13/2019. The patient slept for 3/4 hours previous night. She did talk to her who called to talk to her over the phone. She was a little anxious, looking for her wallet somewhat confused, restless. Received Zyprexa at 1810 and then did better. REVIEW OF SYSTEMS: Ambulation impaired, in Broda chair. No CV, , pulmonary, eye system symptoms on review. She is much more awake, alert, and attentive. MENTAL STATUS EXAM: Oriented to herself and situation. Speech is coherent, rapid at times. Abstraction fair, computation impaired, language function intact. Mood and affect appears improved, still somewhat anxious, but much better. LABORATORY DATA: Reviewed. IMPRESSION: Delirium due to general medical condition; Psychotic disorder, unspecified; major neurocognitive disorder; early Alzheimer, vascular with delusion; depression. Rest unchanged. PLAN: No change from initial note. Continue melatonin, Remeron, and Zoloft along with Zyprexa p.r.n. Seroquel has been stopped. PAUL SHER MD DR: JACE/michelle JOB#: [id number] / [id number]
[2019-07-15 06:03] VITALS: BP 184/65
[2019-07-15] MEDS: FAMOTIDINE 20 MG TABLET PO SCH ×2 (07:55→21:06)
[2019-07-15] MEDS: MAGNESIUM CHLORIDE ER 64 MG TABLET.ER PO SCH (07:55)
[2019-07-15] MEDS: ASPIRIN ENTERIC COATED 81 MG TABLET.DR. PO SCH (07:55)
[2019-07-15] MEDS: FUROSEMIDE 20 MG TABLET PO SCH (07:55)
[2019-07-15] MEDS: CHOLECALCIFEROL (VITAMIN D3) 1,000 UNIT TABLET PO SCH (07:55)
[2019-07-15] MEDS: UBIDECARENONE 50 MG CAPSULE. PO SCH ×2 (07:56→21:05)
[2019-07-15] MEDS: SERTRALINE 100 MG TABLET. PO SCH (07:56)
[2019-07-15] MEDS: LACTOBACILLUS RHAMNOSUS GG 1 CAPSULE. PO SCH ×2 (07:56→21:06)
[2019-07-15] MEDS: metFORMIN 500 MG TABLET PO SCH ×2 (07:56→17:14)
[2019-07-15] MEDS: POTASSIUM CHLORIDE 20 MEQ TABLET.ER. PO SCH (07:56)
[2019-07-15] MEDS: FOLIC ACID 1 MG TABLET PO SCH (07:57)
[2019-07-15] MEDS: CARVEDILOL 3.125 MG TABLET PO SCH ×2 (07:57→17:14)
--- NOTE | 2019-07-15 10:00 | NUR ---
Nursing Note: Assumed care of pt approx 0700. Pt in the dining for morning medication pass. Meds taken crushed in pudding. Pt calm, pleasant, cooperative w/ cares, interactive w peers and staff.
[2019-07-15 15:42] VITALS: BP 147/64
[2019-07-15] MEDS: MELATONIN 3 MG TABLET PO SCH (21:06)
[2019-07-15] MEDS: MIRTAZAPINE 15 MG TABLET PO SCH (21:06)
[2019-07-15] MEDS: LOSARTAN 50 MG TABLET. PO SCH (21:06)
--- NOTE | 2019-07-15 21:47 | PDOC ---
Exam Note: Flavio Note: Please also refer to the separate dictated note~for this date of service dictated separately.~Patient seen individually. Discussed the patient with Nursing staff reviewed the chart.~Reviewed interim history and current functioning. Reviewed vital signs,~Labs/ Radiology~and current medications noted below. Continue current treatment with the changes noted in the dictated addendum note Assessment: Vital Signs/I&O: Vital Signs Date Time Temp Pulse Resp B/P (MAP) Pulse Ox O2 Delivery O2 Flow Rate FiO2 07/15/19 21:07 83 114/67 07/15/19 15:42 97.4 20 98 Room Air I & O 07/14/19 07/14/19 07/15/19 15:00 23:00 07:00 Intake Total 720 ml 240 ml 240 ml Balance 720 ml 240 ml 240 ml Labs: Laboratory Tests Test 07/15/19 07:12 Glucose (Fingerstick) 128 mg/dL (70-99) H Current Medications: I have reviewed the current psychotropics carefully including drug interactions. Risk benefit ratio favors no change other than as noted in my dictated progress note. Diagnosis: Problems: (1) Anxiety disorder (2) Dementia, vascular, with delusions (3) Dementia, vascular, with depression (4) Dementia in Alzheimer's disease with delusions (5) Dementia in Alzheimer's disease with depression (6) Impulse control disorder (7) Delirium due to general medical condition PAUL SHER MD Jul 15, 2019 21:47
--- NOTE | 2019-07-16 00:36 | NUR ---
Nursing Note: Assumed care of pt. this evening, she was sitting out in the day room in [facility]. She has been calm, pleasant, cooperative, and interacting with staff and other pt's appropriately. She has been compliant with taking her HS meds crushed in pudding. No agitation or aggression noted at this time.
--- NOTE | 2019-07-16 02:05 | PN ---
DATE: 07/14/2019 PROGRESS NOTE This late entry 07/14/2019 covers elements not covered in my initial note. SUBJECTIVE: I met with the patient evening of 07/14/2019. The patient slept 8 hours previous night. She remains somewhat confused, but much more alert. Urine has been sent for culture and sensitivity. Takes her medications in pudding, otherwise cooperative. Received Zyprexa 2.5 mg at 1446 for anxiety, restlessness, paranoia. She is asking for the staff to get her keys and help her, she had to go looking for her since there was no one with him on a "shoestring." Some of its slightly disorganized; however, she was quite active in the balloon groups therapy session. REVIEW OF SYSTEMS: Ambulation impaired, in Broda chair. No CV, , pulmonary, eye, ENT system symptoms on review. Reliability poor. MENTAL STATUS EXAM: Oriented to herself. Insight, judgment, recent and remote memory, attention, concentration, fund of knowledge poor, consistent with her diagnosis. IMPRESSION: Delirium due to general medical condition, psychotic disorder, unspecified; probable major depressive disorder with psychotic features, probable major neurocognitive disorder, Alzheimer, vascular with delirium. Rest unchanged. PLAN: Await urine C and S. Continue rest of the psychotropics from initial note. MAN Radha SHER MD DR: JACE/michelle JOB#: [id number] / [id number]
[2019-07-16] MEDS: ACETAMINOPHEN 325 MG TABLET PO PRN ×2 (05:58→20:47)
[2019-07-16 06:05] VITALS: BP 179/80
[2019-07-16] MEDS: UBIDECARENONE 50 MG CAPSULE. PO SCH ×2 (08:33→20:39)
[2019-07-16] MEDS: FAMOTIDINE 20 MG TABLET PO SCH ×2 (08:33→20:39)
[2019-07-16] MEDS: POTASSIUM CHLORIDE 20 MEQ TABLET.ER. PO SCH (08:34)
[2019-07-16] MEDS: CHOLECALCIFEROL (VITAMIN D3) 1,000 UNIT TABLET PO SCH (08:34)
[2019-07-16] MEDS: ASPIRIN ENTERIC COATED 81 MG TABLET.DR. PO SCH (08:34)
[2019-07-16] MEDS: FOLIC ACID 1 MG TABLET PO SCH (08:34)
[2019-07-16] MEDS: LACTOBACILLUS RHAMNOSUS GG 1 CAPSULE. PO SCH ×2 (08:34→20:39)
[2019-07-16] MEDS: MAGNESIUM CHLORIDE ER 64 MG TABLET.ER PO SCH (08:34)
[2019-07-16] MEDS: CARVEDILOL 3.125 MG TABLET PO SCH ×2 (08:34→16:07)
[2019-07-16] MEDS: FUROSEMIDE 20 MG TABLET PO SCH (08:35)
[2019-07-16] MEDS: metFORMIN 500 MG TABLET PO SCH ×2 (08:35→16:06)
[2019-07-16] MEDS: SERTRALINE 100 MG TABLET. PO SCH (08:35)
[2019-07-16 16:23] VITALS: BP 119/64
[2019-07-16] MEDS ORDERED: PHENAZOPYRIDINE 100 MG TABLET. PO PRN (17:45)
[2019-07-16] MEDS: MELATONIN 3 MG TABLET PO SCH (20:39)
[2019-07-16] MEDS: MIRTAZAPINE 15 MG TABLET PO SCH (20:39)
[2019-07-16] MEDS: LOSARTAN 50 MG TABLET. PO SCH (20:40)
--- NOTE | 2019-07-16 21:41 | PDOC ---
Exam Note: Flavio Note: Please also refer to the separate dictated note~for this date of service dictated separately.~Patient seen individually. Discussed the patient with Nursing staff reviewed the chart.~Reviewed interim history and current functioning. Reviewed vital signs,~Labs/ Radiology~and current medications noted below. Continue current treatment with the changes noted in the dictated addendum note Assessment: Vital Signs/I&O: Vital Signs Date Time Temp Pulse Resp B/P (MAP) Pulse Ox O2 Delivery O2 Flow Rate FiO2 07/16/19 20:41 96 182/77 07/16/19 16:23 97.4 16 98 07/16/19 06:05 Room Air I & O 07/15/19 07/15/19 07/16/19 14:59 22:59 06:59 Intake Total 720 ml 240 ml 240 ml Balance 720 ml 240 ml 240 ml Labs: Laboratory Tests Test 07/16/19 07:42 Glucose (Fingerstick) 113 mg/dL (70-99) H Current Medications: I have reviewed the current psychotropics carefully including drug interactions. Risk benefit ratio favors no change other than as noted in my dictated progress note. Diagnosis: Problems: (1) Anxiety disorder (2) Dementia, vascular, with delusions (3) Dementia, vascular, with depression (4) Dementia in Alzheimer's disease with delusions (5) Dementia in Alzheimer's disease with depression (6) Impulse control disorder (7) Delirium due to general medical condition PAUL SHER MD Jul 16, 2019 21:40
--- NOTE | 2019-07-16 23:06 | PN ---
DATE: 07/15/2019 PSYCHIATRIC PROGRESS NOTE This late entry 07/15/2019 covers elements not covered in my initial note. SUBJECTIVE: I met with the patient in the evening. The patient slept 7-1/2 hours previous night. She has been pleasant, takes her meds and pudding. She is asking her for $25 bill for her food and to go to the [employer] baseball game. He apparently took this for real, but nursing staff clarified patient's confusion causing this. REVIEW OF SYSTEMS: Ambulation impaired, in wheelchair/Broda. No CV, , pulmonary, eye system symptoms on review. MENTAL STATUS EXAM: Oriented to herself and situation. Speech has some latency, coherent. Abstraction fair, computation impaired, language function intact, attention span short. Mood and affect is improved. She has a sense of humor. LABORATORY DATA: Reviewed. IMPRESSION: Unchanged from initial note. PLAN: No change from initial note. PAUL SHER MD DR: JACE/michelle JOB#: [id number] / [id number]
--- NOTE | 2019-07-16 23:43 | NUR ---
Nursing Note: During shift report was notified by the aide, that pt. was on the floor in her room. The fall was witness by the aide, staff left her in her room and told pt. she was going to be right back and not to get up, upon the aide returned pt. was standing. Pt. went to turn around and that is when she lost balance and landed on the floor. Pt. denies hitting her head, no injuries noted. She denies any new pain at this time. PRN Tylenol given per JAN due to groin pain/pelvic pain, which she had prior to the fall. Pt. has been calm, pleasant, and cooperative. She has been compliant with taking her HS meds crushed in pudding this evening. No agitation or aggression noted at this time.
[2019-07-17 06:30] VITALS: BP 193/83
[2019-07-17] MEDS: ACETAMINOPHEN 325 MG TABLET PO PRN (06:33)
[2019-07-17] MEDS: MAGNESIUM CHLORIDE ER 64 MG TABLET.ER PO SCH (09:13)
[2019-07-17] MEDS: FAMOTIDINE 20 MG TABLET PO SCH ×2 (09:13→19:24)
[2019-07-17] MEDS: ASPIRIN ENTERIC COATED 81 MG TABLET.DR. PO SCH (09:13)
[2019-07-17] MEDS: FUROSEMIDE 20 MG TABLET PO SCH (09:14)
[2019-07-17] MEDS: FOLIC ACID 1 MG TABLET PO SCH (09:14)
[2019-07-17] MEDS: CHOLECALCIFEROL (VITAMIN D3) 1,000 UNIT TABLET PO SCH (09:14)
[2019-07-17] MEDS: CARVEDILOL 3.125 MG TABLET PO SCH ×2 (09:14→17:14)
[2019-07-17] MEDS: SERTRALINE 100 MG TABLET. PO SCH (09:14)
[2019-07-17] MEDS: metFORMIN 500 MG TABLET PO SCH ×2 (09:14→17:13)
[2019-07-17] MEDS: POTASSIUM CHLORIDE 20 MEQ TABLET.ER. PO SCH (09:14)
[2019-07-17] MEDS: UBIDECARENONE 50 MG CAPSULE. PO SCH ×2 (09:15→19:23)
[2019-07-17] MEDS: LACTOBACILLUS RHAMNOSUS GG 1 CAPSULE. PO SCH ×2 (09:15→19:23)
--- NOTE | 2019-07-17 09:47 | NUR ---
Patient is having urinary pain. Given PRN pyridium for pain per dr. stewart.
--- NOTE | 2019-07-17 10:40 | NUR ---
WEEKLY NOTE: Pt is eating 75% of meals and sleeping on average 6 hours of sleep. Pt continues to be confused but is pleasant and compliant with all assessment. Pt fell on the floor from the toilet, but no injuries have been notified. Pt is working with PT and OT and does well. Pt psychiatric medications have been decreased. It appears that pt will discharge home and may need more services to aid in her care and the husbands. [facility] will be the middle of next week.
--- NOTE | 2019-07-17 10:40 | NUR ---
WEEKLY ACTIVITY THERAPY NOTE Date of Admission: 07/04/2019 Date of AT Assessment: 07/07/2019 Goal aimed: to increase leisure engagement Initial Goal: Pt. will engage in three Activity Therapy groups per week. Goal Changed 07/10: Pt. will engage in one Activity Therapy group per day. Weekly progress towards goal: did not achieve, no groups on Sunday but achieved every other day Group participation level: either full or minimal Weekly highlights: several full groups, smiling often Behaviors observed: attempting to follow exercises to the best of her ability-needed reminders to support impaired hip, smiles often, sleeps if not in group, restless and confused at times, decreased attempts to get out of chair, easy to redirect Plan: no change to goal Beneficial adaptations: 'popcorn style' groups, physical engagement- gross motor, staff support during group sessions
--- NOTE | 2019-07-17 13:20 | NUR ---
Pt has been calm and cooperative this morning. Compliant with am medications per FAN Fernandez. No behaviors noted.
--- NOTE | 2019-07-17 13:25 | NUR ---
SW received a call from pt Syed and son Cliff to discuss an update on pt. SW informed both parties that pt is doing better in that she is participating more in activities, medication compliant and overall less anxious. However, a culture was gather on 07/14 and was positive, which shows that her antibiotic may not be clearing it and needs to be re-evaluated. SW also discussed the recommendation for pt to attend rehab as she is not physically capable of completing things at home, as before she was helping out her . SW explained that pt is still not able to fully walk without help and it would be beneficial for her to discharge to one closer to home with family support. All parties agreed and pt questioned if she had to stay overnight, in which said yes, but was going to try hard to have her close by so he can visit. SW will continue to follow up with the family and look for rehab facilities to prepare for discharge at the end of next week.
[2019-07-17 14:20] VITALS: BP 142/67
[2019-07-17 16:24] VITALS: BP 124/94
[2019-07-17] MEDS: MELATONIN 3 MG TABLET PO SCH (19:23)
[2019-07-17] MEDS: LOSARTAN 50 MG TABLET. PO SCH (19:23)
[2019-07-17] MEDS: MIRTAZAPINE 15 MG TABLET PO SCH (19:23)
--- NOTE | 2019-07-17 20:00 | NUR ---
Pt in broda in day room social pleasant and cooperative, no behaviors. Meds taken crushed in pudding without difficulty.
--- NOTE | 2019-07-17 21:47 | PDOC ---
Exam Note: Flavio Note: Please also refer to the separate dictated note~for this date of service dictated separately.~Patient seen individually. Discussed the patient with Nursing staff reviewed the chart.~Reviewed interim history and current functioning. Reviewed vital signs,~Labs/ Radiology~and current medications noted below. Continue current treatment with the changes noted in the dictated addendum note Assessment: Vital Signs/I&O: Vital Signs Date Time Temp Pulse Resp B/P (MAP) Pulse Ox O2 Delivery O2 Flow Rate FiO2 07/17/19 19:24 93 124/94 07/17/19 16:24 97.3 17 96 Room Air I & O 07/16/19 07/16/19 07/17/19 14:59 22:59 06:59 Intake Total 960 ml 240 ml 120 ml Balance 960 ml 240 ml 120 ml Labs: Laboratory Tests Test 07/17/19 07:09 Glucose (Fingerstick) 131 mg/dL (70-99) H Current Medications: I have reviewed the current psychotropics carefully including drug interactions. Risk benefit ratio favors no change other than as noted in my dictated progress note. Diagnosis: Problems: (1) Anxiety disorder (2) Dementia, vascular, with delusions (3) Dementia, vascular, with depression (4) Dementia in Alzheimer's disease with delusions (5) Dementia in Alzheimer's disease with depression (6) Impulse control disorder (7) Delirium due to general medical condition PAUL SHER MD Jul 17, 2019 21:47
[2019-07-18] MEDS: CARVEDILOL 3.125 MG TABLET PO SCH ×2 (05:22→17:28)
--- NOTE | 2019-07-18 05:37 | NUR ---
AM BP approx 202/86 0800 dose of carvedilol given. Pt alert and cooperative orientation much better than last week and able to carry on a conversation now.
[2019-07-18 06:09] VITALS: BP 205/82
[2019-07-18] MEDS ORDERED: ALIROCUMAB 75 MG SQ SCH (09:00)
[2019-07-18] MEDS: UBIDECARENONE 50 MG CAPSULE. PO SCH ×2 (09:29→19:37)
[2019-07-18] MEDS: CHOLECALCIFEROL (VITAMIN D3) 1,000 UNIT TABLET PO SCH (09:29)
[2019-07-18] MEDS: metFORMIN 500 MG TABLET PO SCH ×2 (09:29→17:27)
[2019-07-18] MEDS: MAGNESIUM CHLORIDE ER 64 MG TABLET.ER PO SCH (09:29)
[2019-07-18] MEDS: FUROSEMIDE 20 MG TABLET PO SCH (09:29)
[2019-07-18] MEDS: LACTOBACILLUS RHAMNOSUS GG 1 CAPSULE. PO SCH ×2 (09:29→19:37)
[2019-07-18] MEDS: SERTRALINE 100 MG TABLET. PO SCH (09:29)
[2019-07-18] MEDS: FOLIC ACID 1 MG TABLET PO SCH (09:30)
[2019-07-18] MEDS: ASPIRIN ENTERIC COATED 81 MG TABLET.DR. PO SCH (09:30)
[2019-07-18] MEDS: POTASSIUM CHLORIDE 20 MEQ TABLET.ER. PO SCH (09:31)
[2019-07-18] MEDS: FAMOTIDINE 20 MG TABLET PO SCH ×2 (09:33→19:37)
[2019-07-18] MEDS: levoFLOXacin 250 MG TABLET PO SCH (12:38)
[2019-07-18 16:40] VITALS: BP 128/73
[2019-07-18] MEDS: MIRTAZAPINE 15 MG TABLET PO SCH (19:37)
[2019-07-18] MEDS: MELATONIN 3 MG TABLET PO SCH (19:37)
[2019-07-18] MEDS: LOSARTAN 50 MG TABLET. PO SCH (19:38)
--- NOTE | 2019-07-18 20:00 | NUR ---
Sitting in day room, social and cooperative. Pt now able to converse with others and is well oriented. Meds taken whole without difficulty. Pt reported feeling tired tonight and requested to go to bed early. Pt now in WC and said she has been walking with assistance daily. Pt reminded to have staff assist her getting up to help avoid injuries.
--- NOTE | 2019-07-18 21:44 | PN ---
DATE: 07/16/2019 PSYCHIATRIC PROGRESS NOTE This late entry 07/16/2019 covers the elements not covered in my initial note. SUBJECTIVE: I met with the patient in the evening of 07/16/2019. The patient slept 6-1/4 hours previous night. She has had some complaints of pain and probably has a UTI and I will defer this to Dr. Atwood. Nevertheless, she has been pleasant, cooperative, confused, but more alert. REVIEW OF SYSTEMS: Ambulation impaired, in Broda chair. No CV, , pulmonary, eye system symptoms on review. MENTAL STATUS EXAM: Oriented to herself. Insight, judgment, recent and remote memory, attention, concentration, fund of knowledge poor, consistent with her diagnosis mentioned in my initial note. PLAN: No change from initial note. MAN Radha SHER MD DR: JACE/michelle JOB#: [id number] / [id number]
--- NOTE | 2019-07-18 21:50 | PDOC ---
Exam Note: Flavio Note: Please also refer to the separate dictated note~for this date of service dictated separately.~Patient seen individually. Discussed the patient with Nursing staff reviewed the chart.~Reviewed interim history and current functioning. Reviewed vital signs,~Labs/ Radiology~and current medications noted below. Continue current treatment with the changes noted in the dictated addendum note Assessment: Vital Signs/I&O: Vital Signs Date Time Temp Pulse Resp B/P (MAP) Pulse Ox O2 Delivery O2 Flow Rate FiO2 07/18/19 19:38 68 128/73 07/18/19 16:40 98.0 20 97 Room Air I & O 07/17/19 07/17/19 07/18/19 15:00 23:00 07:00 Intake Total 560 ml 240 ml 240 ml Balance 560 ml 240 ml 240 ml Labs: Laboratory Tests Test 07/18/19 07:25 Glucose (Fingerstick) 113 mg/dL (70-99) H Current Medications: Meds: Current Medications Medications (Trade) Dose Ordered Sig/Sirisha Route PRN Reason Start Time Stop Time Status Last Admin Dose Admin Levofloxacin (Levaquin) 250 mg DAILY06 PO 07/18/19 12:30 07/21/19 12:29 07/18/19 12:38 I have reviewed the current psychotropics carefully including drug interactions. Risk benefit ratio favors no change other than as noted in my dictated progress note. Diagnosis: Problems: (1) Anxiety disorder (2) Dementia, vascular, with delusions (3) Dementia, vascular, with depression (4) Dementia in Alzheimer's disease with delusions (5) Dementia in Alzheimer's disease with depression (6) Impulse control disorder (7) Delirium due to general medical condition PAUL SHER MD Jul 18, 2019 21:50
--- NOTE | 2019-07-18 23:17 | PN ---
DATE: 07/17/2019 PSYCHIATRIC PROGRESS NOTE This late entry of 07/17/2019 covers elements not covered in my initial note. SUBJECTIVE: I met with the patient in evening of 07/17/2019 and staffed at a treatment team meeting with the entire team in the morning. Appetite 75-100%, sleeping average 6-3/4 hours. Pleasant and cooperative, more alert, compliant with medications, but confused. She is participating in physical therapy. REVIEW OF SYSTEMS: Ambulation impaired. No CV, , pulmonary, eye, ENT system symptoms on review. Reliability poor. MENTAL STATUS EXAM: Oriented to herself. Insight, judgment, recent and remote memory, attention, concentration, fund of knowledge poor, consistent with her diagnosis mentioned in my initial note. PLAN: No change from initial note. MAN Radha SHER MD DR: JACE/michelle JOB#: [id number] / [id number]
[2019-07-18] MEDS: ACETAMINOPHEN 325 MG TABLET PO PRN (23:19)
--- NOTE | 2019-07-18 23:21 | NUR ---
PRN Tylenol given for c/o leg pain.
[2019-07-19] MEDS: levoFLOXacin 250 MG TABLET PO SCH (05:35)
[2019-07-19 05:46] VITALS: BP 168/66
[2019-07-19] MEDS: MAGNESIUM CHLORIDE ER 64 MG TABLET.ER PO SCH (07:54)
[2019-07-19] MEDS: FOLIC ACID 1 MG TABLET PO SCH (07:54)
[2019-07-19] MEDS: FUROSEMIDE 20 MG TABLET PO SCH (07:54)
[2019-07-19] MEDS: UBIDECARENONE 50 MG CAPSULE. PO SCH ×2 (07:54→19:39)
[2019-07-19] MEDS: CHOLECALCIFEROL (VITAMIN D3) 1,000 UNIT TABLET PO SCH (07:54)
[2019-07-19] MEDS: LACTOBACILLUS RHAMNOSUS GG 1 CAPSULE. PO SCH ×2 (07:55→19:39)
[2019-07-19] MEDS: POTASSIUM CHLORIDE 20 MEQ TABLET.ER. PO SCH (07:55)
[2019-07-19] MEDS: metFORMIN 500 MG TABLET PO SCH ×2 (07:55→16:20)
[2019-07-19] MEDS: CARVEDILOL 3.125 MG TABLET PO SCH ×2 (07:55→16:19)
[2019-07-19] MEDS: SERTRALINE 100 MG TABLET. PO SCH (07:56)
[2019-07-19] MEDS: FAMOTIDINE 20 MG TABLET PO SCH ×2 (07:56→21:00)
[2019-07-19] MEDS: ASPIRIN ENTERIC COATED 81 MG TABLET.DR. PO SCH (07:56)
--- NOTE | 2019-07-19 09:47 | NUR ---
Pt. took all meds whole, with no difficulty at breakfast. Seated in dayroom, elevated feet in w/c for comfort and slight pedal edema. Response was unrelated to nursing comment during assessment. Will continue to monitor orientation and impulse control. Has personal alarm in place on chair r/t pt. getting up ad felton, when assistance is needed.
[2019-07-19] MEDS: ACETAMINOPHEN 500 MG TABLET PO PRN (14:01)
[2019-07-19 15:42] VITALS: BP 144/73
--- NOTE | 2019-07-19 16:26 | NUR ---
Shoes provided by friend, reports her feet are too big for anything she has at home. Pt. received PC from her today, tolerated well, no distress from the call. She is A&O, but forgetful of random details. Friend reported she is much improved from last week, but still appears to say odd things at times. Pt. developed shaking and coldness before noon in the day room. Temp was 97.5 temporal. Provided warm blankets. Continues to have fine tremors in hands. DIL states she started the tremors after her last fall when she had landed on her arm. Prior to that, pt. had never shown tremors of any type. Encouraging to elevate feet whenever possible.
[2019-07-19] MEDS: MELATONIN 3 MG TABLET PO SCH (19:40)
[2019-07-19] MEDS: MIRTAZAPINE 15 MG TABLET PO SCH (19:40)
[2019-07-19] MEDS: LOSARTAN 50 MG TABLET. PO SCH (19:40)
--- NOTE | 2019-07-19 22:46 | PDOC ---
Exam Note: Flavio Note: Please also refer to the separate dictated note~for this date of service dictated separately.~Patient seen individually. Discussed the patient with Nursing staff reviewed the chart.~Reviewed interim history and current functioning. Reviewed vital signs,~Labs/ Radiology~and current medications noted below. Continue current treatment with the changes noted in the dictated addendum note Assessment: Vital Signs/I&O: Vital Signs Date Time Temp Pulse Resp B/P (MAP) Pulse Ox O2 Delivery O2 Flow Rate FiO2 07/19/19 19:40 92 144/73 07/19/19 15:42 97.6 20 98 07/18/19 16:40 Room Air I & O 07/18/19 07/18/19 07/19/19 15:00 23:00 07:00 Intake Total 720 ml 600 ml Balance 720 ml 600 ml Labs: Laboratory Tests Test 07/19/19 07:19 Glucose (Fingerstick) 120 mg/dL (70-99) H Current Medications: I have reviewed the current psychotropics carefully including drug interactions. Risk benefit ratio favors no change other than as noted in my dictated progress note. Diagnosis: Problems: (1) Anxiety disorder (2) Dementia, vascular, with delusions (3) Dementia, vascular, with depression (4) Dementia in Alzheimer's disease with delusions (5) Dementia in Alzheimer's disease with depression (6) Impulse control disorder (7) Delirium due to general medical condition PAUL SHER MD Jul 19, 2019 22:46
[2019-07-20] MEDS: ACETAMINOPHEN 325 MG TABLET PO PRN (04:50)
[2019-07-20] MEDS: levoFLOXacin 250 MG TABLET PO SCH (04:50)
[2019-07-20 06:02] VITALS: BP 136/70
[2019-07-20] MEDS: LACTOBACILLUS RHAMNOSUS GG 1 CAPSULE. PO SCH ×2 (07:25→18:57)
[2019-07-20] MEDS: FAMOTIDINE 20 MG TABLET PO SCH ×2 (07:25→18:57)
[2019-07-20] MEDS: CHOLECALCIFEROL (VITAMIN D3) 1,000 UNIT TABLET PO SCH (07:26)
[2019-07-20] MEDS: CARVEDILOL 3.125 MG TABLET PO SCH ×2 (07:26→17:54)
[2019-07-20] MEDS: ASPIRIN ENTERIC COATED 81 MG TABLET.DR. PO SCH (07:26)
[2019-07-20] MEDS: POTASSIUM CHLORIDE 20 MEQ TABLET.ER. PO SCH (07:27)
[2019-07-20] MEDS: FOLIC ACID 1 MG TABLET PO SCH (07:27)
[2019-07-20] MEDS: metFORMIN 500 MG TABLET PO SCH ×2 (07:27→17:54)
[2019-07-20] MEDS: UBIDECARENONE 50 MG CAPSULE. PO SCH ×2 (07:27→18:57)
[2019-07-20] MEDS: MAGNESIUM CHLORIDE ER 64 MG TABLET.ER PO SCH (07:27)
[2019-07-20] MEDS: FUROSEMIDE 20 MG TABLET PO SCH (07:28)
[2019-07-20] MEDS: SERTRALINE 100 MG TABLET. PO SCH (07:29)
--- NOTE | 2019-07-20 10:45 | NUR ---
Appears a&o but in conversation, will forget random facts. Thought it was june 19 instead of july 20. Forgest name of this hospital. Still lack of impulse control at times, got out of bed without assist to use B/R. Compliant and pleasant. Reports continued pain in pelvic area, rates at a 5. Also states her bottom gets sore sitting up all the time. Reports using Lasix to manage pedal edema, even prior to her pelvic fracture. Speech is clear, getting closer to her baseline level of functioning each day.
[2019-07-20] MEDS ORDERED: FUROSEMIDE 80 MG TABLET PO ONE (12:40)
[2019-07-20 15:46] VITALS: BP 143/77
[2019-07-20] MEDS: ACETAMINOPHEN 500 MG TABLET PO PRN (18:24)
[2019-07-20] MEDS: MIRTAZAPINE 15 MG TABLET PO SCH (18:57)
[2019-07-20] MEDS: LOSARTAN 50 MG TABLET. PO SCH (18:57)
[2019-07-20] MEDS: MELATONIN 3 MG TABLET PO SCH (18:57)
--- NOTE | 2019-07-20 20:13 | NUR ---
Nursing Note Pt in room sleeping, awakens to voice. Denies pain and other complaints takes meds crushed.
--- NOTE | 2019-07-21 01:03 | PN ---
DATE: 07/18/2019 PSYCHIATRIC PROGRESS NOTE This late entry 07/18/2019 covers elements not covered in my initial note. SUBJECTIVE: I met with the patient in the evening of 07/18/2019. The patient slept 7-3/4 hours previous night. She has been more oriented, aware of the year, more alert, participated in physical therapy and occupational therapy. She is on antibiotics for UTI. REVIEW OF SYSTEMS: Ambulation impaired, in Broda chair. No CV, , pulmonary, eye, ENT system symptoms on review. Reliability varies. MENTAL STATUS EXAM: Oriented to herself and situation. Speech coherent, has some latency. Abstraction fair, computation impaired, language function intact, attention span short. Mood and affect showing improvement. LABORATORY DATA: Reviewed. IMPRESSION: Unchanged from initial note. PLAN: No change from initial note and treat the UTI. Adjust further as clinically indicated. MAN Radha SHER MD DR: JACE/michelle JOB#: [id number] / [id number]
--- NOTE | 2019-07-21 01:06 | PN ---
DATE: 07/19/2019 PSYCHIATRIC PROGRESS NOTE This late entry 07/19/2019 covers the elements not covered in my initial note. SUBJECTIVE: I met with the patient in the evening of 07/19/2019. The patient slept 7-1/4 hours previous night. BP is stable. She has some tremors after the fall, much more oriented. As I questioned her, she knew the president was [address], knew she was at [facility] confused about the year, felt it was 1917 and then corrected it with my help. REVIEW OF SYSTEMS: Ambulation impaired, in wheelchair. No CV, , pulmonary, eye, ENT system symptoms on review. Reliability varies. MENTAL STATUS EXAM: The patient is oriented to herself and situation. Speech is coherent, has some latency. Abstraction fair, computation impaired, language function intact, attention span short. Mood and affect somewhat withdrawn, but improved, more animated individually. LABORATORY DATA: Reviewed. IMPRESSION: Unchanged from initial note. PLAN: No change from initial note. PAUL SHER MD DR: JACE/michelle JOB#: [id number] / [id number]
[2019-07-21 05:45] VITALS: BP 169/78
[2019-07-21] MEDS: levoFLOXacin 250 MG TABLET PO SCH (05:51)
[2019-07-21] MEDS: FAMOTIDINE 20 MG TABLET PO SCH ×2 (07:50→20:56)
[2019-07-21] MEDS: CHOLECALCIFEROL (VITAMIN D3) 1,000 UNIT TABLET PO SCH (07:51)
[2019-07-21] MEDS: POTASSIUM CHLORIDE 20 MEQ TABLET.ER. PO SCH (07:51)
[2019-07-21] MEDS: FOLIC ACID 1 MG TABLET PO SCH (07:51)
[2019-07-21] MEDS: metFORMIN 500 MG TABLET PO SCH ×2 (07:51→16:44)
[2019-07-21] MEDS: SERTRALINE 100 MG TABLET. PO SCH (07:51)
[2019-07-21] MEDS: MAGNESIUM CHLORIDE ER 64 MG TABLET.ER PO SCH (07:52)
[2019-07-21] MEDS: CARVEDILOL 3.125 MG TABLET PO SCH ×2 (07:52→16:45)
[2019-07-21] MEDS: LACTOBACILLUS RHAMNOSUS GG 1 CAPSULE. PO SCH ×2 (07:52→20:55)
[2019-07-21] MEDS: FUROSEMIDE 20 MG TABLET PO SCH (07:52)
[2019-07-21] MEDS: ASPIRIN ENTERIC COATED 81 MG TABLET.DR. PO SCH (07:52)
[2019-07-21] MEDS: UBIDECARENONE 50 MG CAPSULE. PO SCH ×2 (07:53→20:55)
[2019-07-21] MEDS: ACETAMINOPHEN 500 MG TABLET PO PRN (07:56)
--- NOTE | 2019-07-21 09:30 | NUR ---
Nursing Note: Pt appears a&o but can be forgetful. Knew the name of town started w/ "L" but couln't remember the full name. Remembered name of hospital. Still lack of impulse control at times, started to get out of bed w/o assist to use bathroom this am. Reports continued pain in pelvic area of 5/10. Also states her bottom gets sore sitting up all the time. Speech is clear, getting closer to her baseline level of functioning each day.
--- NOTE | 2019-07-21 11:29 | NUR ---
Nursing Note: Dr. Middleton reviewed pt's most recent labs, orders rec. for one time dose of Lasix for bilateral edema of lower legs. Family friend, Genna called just as Dr. Middleton arrived for rounds to report that she had notice pt's swollen ankles. Asked her to call back later and that possibly have more information. Addendum: 07/21/19 at 1243 by HERNAN MA RN Also discussed w/ Dr. Middleton the prelim results of pt's urine culture. Pt is nonsymptomatic. No orders rec at this time for UTI, waiting for culture and sensitivity.
[2019-07-21] MEDS ORDERED: FUROSEMIDE 80 MG TABLET PO ONE (11:30)
--- NOTE | 2019-07-21 12:43 | NUR ---
Nursing Note: Consulted with pharmacy about given Lasix 80mg X one along w/ Lasix 20mg daily.
[2019-07-21 16:33] VITALS: BP 132/61
--- NOTE | 2019-07-21 19:21 | PDOC ---
Exam Note: Flavio Note: Please also refer to the separate dictated note~for this date of service dictated separately.~Patient seen individually. Discussed the patient with Nursing staff reviewed the chart.~Reviewed interim history and current functioning. Reviewed vital signs,~Labs/ Radiology~and current medications noted below. Continue current treatment with the changes noted in the dictated addendum note Assessment: Vital Signs/I&O: Vital Signs Date Time Temp Pulse Resp B/P (MAP) Pulse Ox O2 Delivery O2 Flow Rate FiO2 07/21/19 16:45 90 132/61 07/21/19 16:33 98.0 16 97 07/18/19 16:40 Room Air I & O 07/20/19 07/20/19 07/21/19 15:00 23:00 07:00 Intake Total 600 ml 240 ml 80 ml Balance 600 ml 240 ml 80 ml Labs: Laboratory Tests Test 07/21/19 07:32 Glucose (Fingerstick) 116 mg/dL (70-99) H Current Medications: Meds: Current Medications Medications (Trade) Dose Ordered Sig/Sirisha Route PRN Reason Start Time Stop Time Status Last Admin Dose Admin Furosemide (Lasix) 80 mg 1X ONCE PO 07/21/19 11:30 07/21/19 11:33 DC 07/21/19 12:24 I have reviewed the current psychotropics carefully including drug interactions. Risk benefit ratio favors no change other than as noted in my dictated progress note. Diagnosis: Problems: (1) Delirium due to general medical condition (2) Impulse control disorder (3) Dementia in Alzheimer's disease with depression (4) Dementia in Alzheimer's disease with delusions (5) Dementia, vascular, with depression (6) Dementia, vascular, with delusions (7) Anxiety disorder PAUL SHER MD Jul 21, 2019 19:21
[2019-07-21] MEDS: MELATONIN 3 MG TABLET PO SCH (20:55)
[2019-07-21] MEDS: ACETAMINOPHEN 325 MG TABLET PO PRN (20:56)
[2019-07-21] MEDS: LOSARTAN 50 MG TABLET. PO SCH (20:56)
[2019-07-21] MEDS: MIRTAZAPINE 15 MG TABLET PO SCH (20:56)
--- NOTE | 2019-07-21 21:26 | NUR ---
Nursing Note: Assumed care of pt. this evening, she was lying in bed. She has been calm, pleasant, and interacting appropriately with staff. She has been compliant with taking her HS meds crushed in pudding this evening. No behaviors noted at this time.
[2019-07-22 05:40] VITALS: BP 151/68
[2019-07-22] MEDS: CARVEDILOL 3.125 MG TABLET PO SCH ×2 (07:51→15:43)
[2019-07-22] MEDS: ASPIRIN ENTERIC COATED 81 MG TABLET.DR. PO SCH (07:51)
[2019-07-22] MEDS: SERTRALINE 100 MG TABLET. PO SCH (07:51)
[2019-07-22] MEDS: metFORMIN 500 MG TABLET PO SCH ×2 (07:51→15:43)
[2019-07-22] MEDS: FUROSEMIDE 20 MG TABLET PO SCH (07:52)
[2019-07-22] MEDS: POTASSIUM CHLORIDE 20 MEQ TABLET.ER. PO SCH (07:52)
[2019-07-22] MEDS: LACTOBACILLUS RHAMNOSUS GG 1 CAPSULE. PO SCH ×2 (07:52→20:14)
[2019-07-22] MEDS: MAGNESIUM CHLORIDE ER 64 MG TABLET.ER PO SCH (07:53)
[2019-07-22] MEDS: CHOLECALCIFEROL (VITAMIN D3) 1,000 UNIT TABLET PO SCH (07:53)
[2019-07-22] MEDS: UBIDECARENONE 50 MG CAPSULE. PO SCH ×2 (07:53→20:14)
[2019-07-22] MEDS: FAMOTIDINE 20 MG TABLET PO SCH ×2 (07:53→20:15)
[2019-07-22] MEDS: FOLIC ACID 1 MG TABLET PO SCH (07:53)
[2019-07-22 08:22] LABS: BASO # 0.1 x10^3/uL (0.0-0.2); BASO % 1 % (0-3); EOS # 0.4 x10^3/uL (0.0-0.7); EOS % 8 % (0-3); HEMATOCRIT 35.5 % (36.0-47.0); HEMOGLOBIN 11.6 g/dL (12.0-15.5); LYMPH % 20 % (24-48); MEAN CORPUSCULAR HEMOGLOBIN 28 pg (25-35); MEAN CORPUSCULAR HGB CONC 33 g/dL (31-37); MEAN CORPUSCULAR VOLUME 86 fL (79-100); MONO # 0.7 x10^3/uL (0.0-1.1); MONO % 12 % (0-9); NEUT # 3.2 x10^3uL (1.8-7.7); NEUT % 60 % (31-73); PLATELET COUNT 341 x10^3/uL (140-400); RED BLOOD COUNT 4.12 x10^6/uL (3.50-5.40); RED CELL DISTRIBUTION WIDTH 15.2 % (11.5-14.5); WHITE BLOOD COUNT 5.3 x10^3/uL (4.0-11.0)
[2019-07-22 08:43] LABS: ALBUMIN/GLOBULIN RATIO 0.8 (1.0-1.7); CALCIUM 10.4 mg/dL (8.5-10.1); CREATININE 1.3 mg/dL (0.6-1.0); GFR 39.7; POTASSIUM 3.9 mmol/L (3.5-5.1); TOTAL BILIRUBIN 0.2 mg/dL (0.2-1.0); TOTAL PROTEIN 6.7 g/dL (6.4-8.2)
[2019-07-22 16:24] VITALS: BP 137/79
--- NOTE | 2019-07-22 18:47 | PDOC ---
Exam Note: Flavio Note: Please also refer to the separate dictated note~for this date of service dictated separately.~Patient seen individually. Discussed the patient with Nursing staff reviewed the chart.~Reviewed interim history and current functioning. Reviewed vital signs,~Labs/ Radiology~and current medications noted below. Continue current treatment with the changes noted in the dictated addendum note Assessment: Vital Signs/I&O: Vital Signs Date Time Temp Pulse Resp B/P (MAP) Pulse Ox O2 Delivery O2 Flow Rate FiO2 07/22/19 16:24 97.8 88 20 137/79 (98) 97 Room Air I & O 07/21/19 07/21/19 07/22/19 14:59 22:59 06:59 Intake Total 840 ml 720 ml Balance 840 ml 720 ml Labs: Laboratory Tests Test 07/22/19 07:10 07/22/19 07:21 Glucose (Fingerstick) 127 mg/dL (70-99) H White Blood Count 5.3 x10^3/uL (4.0-11.0) Red Blood Count 4.12 x10^6/uL (3.50-5.40) Hemoglobin 11.6 g/dL (12.0-15.5) L Hematocrit 35.5 % (36.0-47.0) L Mean Corpuscular Volume 86 fL (79-100) Mean Corpuscular Hemoglobin 28 pg (25-35) Mean Corpuscular Hemoglobin Concent 33 g/dL (31-37) Red Cell Distribution Width 15.2 % (11.5-14.5) H Platelet Count 341 x10^3/uL (140-400) Neutrophils (%) (Auto) 60 % (31-73) Lymphocytes (%) (Auto) 20 % (24-48) L Monocytes (%) (Auto) 12 % (0-9) H Eosinophils (%) (Auto) 8 % (0-3) H Basophils (%) (Auto) 1 % (0-3) Neutrophils # (Auto) 3.2 x10^3uL (1.8-7.7) Lymphocytes # (Auto) 1.0 x10^3/uL (1.0-4.8) Monocytes # (Auto) 0.7 x10^3/uL (0.0-1.1) Eosinophils # (Auto) 0.4 x10^3/uL (0.0-0.7) Basophils # (Auto) 0.1 x10^3/uL (0.0-0.2) Sodium Level 140 mmol/L (136-145) Potassium Level 3.9 mmol/L (3.5-5.1) Chloride Level 104 mmol/L (98-107) Carbon Dioxide Level 24 mmol/L (21-32) Anion Gap 12 (6-14) Blood Urea Nitrogen 44 mg/dL (7-20) H Creatinine 1.3 mg/dL (0.6-1.0) H Estimated GFR (Cockcroft-Gault) 39.7 BUN/Creatinine Ratio 34 (6-20) H Glucose Level 128 mg/dL (70-99) H Calcium Level 10.4 mg/dL (8.5-10.1) H Total Bilirubin 0.2 mg/dL (0.2-1.0) Aspartate Amino Transferase (AST) 20 U/L (15-37) Alanine Aminotransferase (ALT) 18 U/L (14-59) Alkaline Phosphatase 130 U/L (46-116) H Total Protein 6.7 g/dL (6.4-8.2) Albumin 3.0 g/dL (3.4-5.0) L Albumin/Globulin Ratio 0.8 (1.0-1.7) L Current Medications: I have reviewed the current psychotropics carefully including drug interactions. Risk benefit ratio favors no change other than as noted in my dictated progress note. Diagnosis: Problems: (1) Delirium due to general medical condition (2) Impulse control disorder (3) Anxiety disorder (4) Dementia, vascular, with depression PAUL SHER MD Jul 22, 2019 18:47
[2019-07-22] MEDS: LOSARTAN 50 MG TABLET. PO SCH (20:15)
[2019-07-22] MEDS: MIRTAZAPINE 15 MG TABLET PO SCH (20:15)
[2019-07-22] MEDS: MELATONIN 3 MG TABLET PO SCH (20:15)
[2019-07-22] MEDS: ACETAMINOPHEN 500 MG TABLET PO PRN (21:01)
--- NOTE | 2019-07-22 23:21 | NUR ---
Nursing Note Pt in bed during assessment. Wakes up to voice, and states "Help I need to get up and get dressed and get ready for the day" informed her it was 2100 and that she didn't need to be awake right now. She was concerned with her pets, and how she was going to cook for herself because she is afraid of the stove. Redirects easily, takes meds whole in pudding.
--- NOTE | 2019-07-23 00:21 | PN ---
DATE: 07/21/2019 PSYCHIATRIC PROGRESS NOTE This late entry 07/21/2019 covers the elements not covered in my initial note. SUBJECTIVE: I met with the patient in the evening of 07/21/2019. The patient slept 8-1/4 hours previous night. She is overall doing better. She tends to stand up on her own and is a fall risk. Did receive extra Lasix again per Dr. Middleton. Labs to be checked on 07/22/2019 in the morning; complains of some hip pain, better with Tylenol. REVIEW OF SYSTEMS: Ambulation impaired. No CV, , pulmonary, eye system symptoms on review. MENTAL STATUS EXAM: The patient is oriented to herself and situation. She knew she was in [place], but did not know the name of the hospital. Speech is coherent, knew the name of the President, [address]. Abstraction fair, computation impaired, language function intact, attention span short. Mood and affect still withdrawn, but better than before. LABORATORY DATA: Reviewed. IMPRESSION: Unchanged from initial note. PLAN: No change from initial note. PAUL SHER MD DR: JACE/michelle JOB#: [id number] / [id number]
--- NOTE | 2019-07-23 00:23 | PN ---
DATE: 07/20/2019 PSYCHIATRIC PROGRESS NOTE This late entry 07/20/2019 covers elements not covered in my initial note. SUBJECTIVE: I met with the patient evening of 07/20/2019. The patient slept 8-1/2 hours previous night. She did receive an extra [address] Middleton. She has complained of being tired, but it appears more coherent and oriented gradually as the days go by. REVIEW OF SYSTEMS: Ambulation impaired. No CV, , pulmonary, eye system symptoms on review. MENTAL STATUS EXAM: Oriented to herself and situation. Speech is coherent, has some latency. Abstraction fair, computation impaired, language function intact, attention span short. Mood and affect somewhat withdrawn, but very much more verbal and interactive as I met with her at some length. LABORATORY DATA: Reviewed. IMPRESSION: Delirium due to general medical condition, improving. Mild cognitive impairment versus dementia, early Alzheimer, vascular with depression, delusions. Rest unchanged. PLAN: No change from initial note. PAUL SHER MD DR: JACE/michelle JOB#: [id number] / [id number]
[2019-07-23 05:47] VITALS: BP 141/55
[2019-07-23] MEDS: ACETAMINOPHEN 500 MG TABLET PO PRN (05:59)
[2019-07-23] MEDS: metFORMIN 500 MG TABLET PO SCH ×2 (07:56→17:24)
[2019-07-23] MEDS: CARVEDILOL 3.125 MG TABLET PO SCH ×2 (07:56→17:26)
[2019-07-23] MEDS: POTASSIUM CHLORIDE 20 MEQ TABLET.ER. PO SCH (07:57)
[2019-07-23] MEDS: ASPIRIN ENTERIC COATED 81 MG TABLET.DR. PO SCH (07:58)
[2019-07-23] MEDS: LACTOBACILLUS RHAMNOSUS GG 1 CAPSULE. PO SCH ×2 (07:59→19:43)
[2019-07-23] MEDS: UBIDECARENONE 50 MG CAPSULE. PO SCH ×2 (07:59→19:43)
[2019-07-23] MEDS: FOLIC ACID 1 MG TABLET PO SCH (07:59)
[2019-07-23] MEDS: MAGNESIUM CHLORIDE ER 64 MG TABLET.ER PO SCH (07:59)
[2019-07-23] MEDS: FAMOTIDINE 20 MG TABLET PO SCH ×2 (07:59→19:43)
[2019-07-23] MEDS: SERTRALINE 100 MG TABLET. PO SCH (08:00)
[2019-07-23] MEDS: FUROSEMIDE 20 MG TABLET PO SCH (08:00)
[2019-07-23] MEDS: CHOLECALCIFEROL (VITAMIN D3) 1,000 UNIT TABLET PO SCH (08:00)
--- NOTE | 2019-07-23 10:51 | NUR ---
RICK received a call from pt Syed to discuss pt discharge potential for this week. RICK informed Syed that [facility] is assessing pt and should have answer by the end of today. RICK has not heard back from [facility] and will follow up with them. Syed was tearful during the call as he "really misses his ".
--- NOTE | 2019-07-23 11:30 | NUR ---
Patient was in the dining room, took medications crushed in pudding, allowed for morning assessment. Patient denies pain. No agitation noted, patient has been in the dayroom this morning. Will continue to monitor.
[2019-07-23 16:20] VITALS: BP 153/67
[2019-07-23] MEDS: MELATONIN 3 MG TABLET PO SCH (19:43)
[2019-07-23] MEDS: MIRTAZAPINE 15 MG TABLET PO SCH (19:44)
--- NOTE | 2019-07-23 21:53 | PDOC ---
Exam Note: Flavio Note: Please also refer to the separate dictated note~for this date of service dictated separately.~Patient seen individually. Discussed the patient with Nursing staff reviewed the chart.~Reviewed interim history and current functioning. Reviewed vital signs,~Labs/ Radiology~and current medications noted below. Continue current treatment with the changes noted in the dictated addendum note Assessment: Vital Signs/I&O: Vital Signs Date Time Temp Pulse Resp B/P (MAP) Pulse Ox O2 Delivery O2 Flow Rate FiO2 07/23/19 17:27 93 153/67 07/23/19 16:20 97.0 20 98 07/22/19 16:24 Room Air I & O 07/22/19 07/22/19 07/23/19 15:00 23:00 07:00 Intake Total 960 ml 300 ml 120 ml Balance 960 ml 300 ml 120 ml Labs: Laboratory Tests Test 07/23/19 08:18 Glucose (Fingerstick) 113 mg/dL (70-99) H Current Medications: I have reviewed the current psychotropics carefully including drug interactions. Risk benefit ratio favors no change other than as noted in my dictated progress note. Diagnosis: Problems: (1) Anxiety disorder (2) Dementia, vascular, with delusions (3) Dementia, vascular, with depression (4) Dementia in Alzheimer's disease with delusions (5) Dementia in Alzheimer's disease with depression (6) Impulse control disorder (7) Delirium due to general medical condition PAUL SHER MD Jul 23, 2019 21:53
--- NOTE | 2019-07-23 23:57 | NUR ---
Pt was in bed at shift change, awaken for meds and took them whole without issue. She was pleasant, cooperative fairly well oriented with some uncertainty about place. No behaviors this shift.
--- NOTE | 2019-07-24 02:43 | PN ---
DATE: 07/22/2019 PSYCHIATRIC PROGRESS NOTE This late entry, 07/22, covers the elements not covered in my initial note. SUBJECTIVE: I met with the patient in the evening in her room at length. She slept 8 hours previous night. Per nursing report, she is doing much better. She is more alert, more coherent and oriented. Takes the medications whole. REVIEW OF SYSTEMS: Ambulation impaired with walker/wheelchair. No CV, , pulmonary, eye, ENT systems symptoms on review. MENTAL STATUS EXAM: Oriented to herself and situation. She is very pleasant, verbal, admitting that she still has some memory deficits, but feels better. Abstraction fair, computation impaired, language function intact, attention span short. Mood and affect is improved. LABORATORY DATA: Reviewed. IMPRESSION: Unchanged from initial note. PLAN: No change from initial note. MAN Radha SHER MD DR: JACE/michelle JOB#: [id number] / [id number]
--- NOTE | 2019-07-24 06:32 | NUR ---
Pt up for the am walked with SB assistance to day room. She was a bit unsteady on feet and dragging L foot at times. Settled on couch reminded to walk with assistance. PRN tylenol given for hip pain.
[2019-07-24 06:37] VITALS: BP 189/72
[2019-07-24] MEDS: LACTOBACILLUS RHAMNOSUS GG 1 CAPSULE. PO SCH ×2 (07:56→19:43)
[2019-07-24] MEDS: POTASSIUM CHLORIDE 20 MEQ TABLET.ER. PO SCH (07:56)
[2019-07-24] MEDS: ASPIRIN ENTERIC COATED 81 MG TABLET.DR. PO SCH (07:56)
[2019-07-24] MEDS: CARVEDILOL 3.125 MG TABLET PO SCH ×2 (07:56→16:45)
[2019-07-24] MEDS: UBIDECARENONE 50 MG CAPSULE. PO SCH ×2 (07:56→19:43)
[2019-07-24] MEDS: MAGNESIUM CHLORIDE ER 64 MG TABLET.ER PO SCH (07:56)
[2019-07-24] MEDS: metFORMIN 500 MG TABLET PO SCH ×2 (07:56→16:46)
[2019-07-24] MEDS: FOLIC ACID 1 MG TABLET PO SCH (07:56)
[2019-07-24] MEDS: CHOLECALCIFEROL (VITAMIN D3) 1,000 UNIT TABLET PO SCH (07:57)
[2019-07-24] MEDS: SERTRALINE 100 MG TABLET. PO SCH (07:57)
[2019-07-24] MEDS: FAMOTIDINE 20 MG TABLET PO SCH ×2 (07:57→19:43)
--- NOTE | 2019-07-24 09:56 | NUR ---
Nursing Note: Pt walked to dining room using walker and followed by staff with her wheelchair for safety. Pt alert, calm, cooperative, interactive w/ staff and peers, medications were taken whole. Pt given PRN just before day shift, reminded pt to let this nurse know if pain returned.
--- NOTE | 2019-07-24 10:07 | NUR ---
WEEKLY NOTE: Pt is eating 75-100% of meals and sleeping close to 8 hours a night. Pt can be forgetful but needs to be watched as she can be impulsive still. Pt has switched from a Broda chair to a w/c and appears to be making great progress with PT. Pt is currently medication compliant and actively participates in groups. Pt to DC as soon as placement is found.
--- NOTE | 2019-07-24 10:08 | NUR ---
WEEKLY ACTIVITY THERAPY NOTE Date of Admission: 07/04/2019 Date of AT Assessment: 07/07/2019 Goal aimed: to increase leisure engagement Initial Goal: Pt. will engage in three Activity Therapy groups per week. Goal Changed 07/10: Pt. will engage in one Activity Therapy group per day. Weekly progress towards goal: achieved Group participation level: moderate to full Weekly highlights: complimentary to a male peer after he'd sing, many full groups Behaviors observed: calm in wheelchair, social, contributed thoughts without prompting Plan: no change to goal Beneficial adaptations: 'popcorn style' groups, physical engagement- gross motor, staff support during group sessions
--- NOTE | 2019-07-24 14:02 | NUR ---
SW received a call from pt hoping that pt can discharge closer to home today. RICK explained that she has not received an approval yet. RICK did hear from [facility] and they requested more records. RICK is hopeful to hear back from them by the end of the day.
[2019-07-24 15:56] VITALS: BP 156/58
[2019-07-24] MEDS: ACETAMINOPHEN 500 MG TABLET PO PRN (17:38)
[2019-07-24] MEDS: MELATONIN 3 MG TABLET PO SCH (19:43)
[2019-07-24] MEDS: MIRTAZAPINE 15 MG TABLET PO SCH (19:43)
--- NOTE | 2019-07-24 21:08 | PDOC ---
Exam Note: Flavio Note: Please also refer to the separate dictated note~for this date of service dictated separately.~Patient seen individually. Discussed the patient with Nursing staff reviewed the chart.~Reviewed interim history and current functioning. Reviewed vital signs,~Labs/ Radiology~and current medications noted below. Continue current treatment with the changes noted in the dictated addendum note Assessment: Vital Signs/I&O: Vital Signs Date Time Temp Pulse Resp B/P (MAP) Pulse Ox O2 Delivery O2 Flow Rate FiO2 07/24/19 16:45 85 156/58 07/24/19 15:56 97.8 18 97 07/22/19 16:24 Room Air I & O 07/23/19 07/23/19 07/24/19 15:00 23:00 07:00 Intake Total 840 ml 240 ml 240 ml Balance 840 ml 240 ml 240 ml Labs: Laboratory Tests Test 07/24/19 07:49 Glucose (Fingerstick) 105 mg/dL (70-99) H Current Medications: I have reviewed the current psychotropics carefully including drug interactions. Risk benefit ratio favors no change other than as noted in my dictated progress note. Diagnosis: Problems: (1) Anxiety disorder (2) Dementia, vascular, with delusions (3) Dementia, vascular, with depression (4) Dementia in Alzheimer's disease with delusions (5) Dementia in Alzheimer's disease with depression (6) Impulse control disorder (7) Delirium due to general medical condition PAUL SHER MD Jul 24, 2019 21:08
[2019-07-25 06:29] VITALS: BP 156/64
--- NOTE | 2019-07-25 09:30 | NUR ---
Nursing Note: Pt calm, pleasant, cooperative, medications taken whole. Pt using walker more often, interactive w/ peers and staff.
[2019-07-25] MEDS: CARVEDILOL 3.125 MG TABLET PO SCH ×2 (09:34→16:17)
[2019-07-25] MEDS: ASPIRIN ENTERIC COATED 81 MG TABLET.DR. PO SCH (09:34)
[2019-07-25] MEDS: LACTOBACILLUS RHAMNOSUS GG 1 CAPSULE. PO SCH ×2 (09:34→19:51)
[2019-07-25] MEDS: MAGNESIUM CHLORIDE ER 64 MG TABLET.ER PO SCH (09:35)
[2019-07-25] MEDS: POTASSIUM CHLORIDE 20 MEQ TABLET.ER. PO SCH (09:35)
[2019-07-25] MEDS: FOLIC ACID 1 MG TABLET PO SCH (09:35)
[2019-07-25] MEDS: FAMOTIDINE 20 MG TABLET PO SCH ×2 (09:35→19:51)
[2019-07-25] MEDS: metFORMIN 500 MG TABLET PO SCH ×2 (09:35→16:17)
[2019-07-25] MEDS: CHOLECALCIFEROL (VITAMIN D3) 1,000 UNIT TABLET PO SCH (09:35)
[2019-07-25] MEDS: SERTRALINE 100 MG TABLET. PO SCH (09:35)
[2019-07-25] MEDS: UBIDECARENONE 50 MG CAPSULE. PO SCH ×2 (09:36→19:51)
--- NOTE | 2019-07-25 10:08 | NUR ---
SW received call from pt son who wanted to double check on placement. SW has not heard anything at this moment. SW will make a couple calls and return call to pt son to inform him of what SW has found.
[2019-07-25 15:49] VITALS: BP 152/79
[2019-07-25] MEDS: ACETAMINOPHEN 500 MG TABLET PO PRN (16:16)
[2019-07-25] MEDS: MIRTAZAPINE 15 MG TABLET PO SCH (19:51)
[2019-07-25] MEDS: MELATONIN 3 MG TABLET PO SCH (19:51)
--- NOTE | 2019-07-25 22:01 | PDOC ---
Exam Note: Flavio Note: Please also refer to the separate dictated note~for this date of service dictated separately.~Patient seen individually. Discussed the patient with Nursing staff reviewed the chart.~Reviewed interim history and current functioning. Reviewed vital signs,~Labs/ Radiology~and current medications noted below. Continue current treatment with the changes noted in the dictated addendum note Assessment: Vital Signs/I&O: Vital Signs Date Time Temp Pulse Resp B/P (MAP) Pulse Ox O2 Delivery O2 Flow Rate FiO2 07/25/19 16:17 83 152/79 07/25/19 15:49 98.0 18 96 07/25/19 06:29 Room Air I & O 07/24/19 07/24/19 07/25/19 14:59 22:59 06:59 Intake Total 1200 ml 480 ml 120 ml Balance 1200 ml 480 ml 120 ml Labs: Laboratory Tests Test 07/25/19 07:19 Glucose (Fingerstick) 111 mg/dL (70-99) H Current Medications: I have reviewed the current psychotropics carefully including drug interactions. Risk benefit ratio favors no change other than as noted in my dictated progress note. Diagnosis: Problems: (1) Anxiety disorder (2) Dementia, vascular, with delusions (3) Dementia, vascular, with depression (4) Dementia in Alzheimer's disease with delusions (5) Dementia in Alzheimer's disease with depression (6) Impulse control disorder (7) Delirium due to general medical condition PAUL SHER MD Jul 25, 2019 22:01
--- NOTE | 2019-07-26 02:45 | NUR ---
Last evening pt sat in chair in day room , meds taken whole without difficulty. She was pleasant and social. Forgetful but fairly well oriented. No behaviors. She is concerned about a UTI having possibly caused her recent issues and said when her mother got a UTI she would become very confused. S/s of UTI discussed with pt and encouraged her to seek early TX if one suspected in the future.
--- NOTE | 2019-07-26 03:48 | PN ---
DATE: 07/24/2019 PSYCHIATRIC PROGRESS NOTE This late entry of 07/24/2019 covers elements not covered in my initial note. SUBJECTIVE: I met with the patient in evening of 07/24/2019. The patient was staffed at a treatment team meeting with the entire team in the morning. She slept 8-1/2 hours previous night, pleasant, cooperative and compliant with medications, much more awake, alert. We discussed her history, progress, possible transition to a care home care before returning home. REVIEW OF SYSTEMS: Ambulation impaired. No CV, , pulmonary, eye system symptoms on review. MENTAL STATUS EXAM: Oriented to herself and situation. Speech is coherent, abstraction fair, computation impaired, language function intact. Short-term memory has some impairment, but improved. No suicidal or homicidal ideation. LABORATORY DATA: Reviewed. IMPRESSION: Unchanged from initial note. PLAN: No change from initial note. MAN Radha SHER MD DR: JACE/michelle JOB#: [id number] / [id number]
--- NOTE | 2019-07-26 04:09 | PN ---
DATE: 07/23/2019 PSYCHIATRIC PROGRESS NOTE This late entry of 07/23/2019 covers elements not covered in my initial note. SUBJECTIVE: I met with the patient in evening of 07/23/2019. The patient slept 8 hours previous night. She has been more awake, alert. She was slightly hypotensive. Lasix was discontinued per Dr. Atwood. BUN slightly increased, again defer to Dr. Atwood. She is walking to meals with assistance. REVIEW OF SYSTEMS: Impaired ambulation. No CV, , pulmonary, eye, ENT system symptoms on review. MENTAL STATUS EXAM: Oriented to herself and situation. Speech is coherent, has some latency. Abstraction fair, computation impaired, language function intact. Mood and affect is improved. IMPRESSION: Unchanged from initial note. PLAN: No change from initial note. MAN Radha SHER MD DR: JACE/michelle JOB#: [id number] / [id number]
[2019-07-26 06:00] VITALS: BP 154/76
[2019-07-26] MEDS: FAMOTIDINE 20 MG TABLET PO SCH ×2 (08:17→20:08)
[2019-07-26] MEDS: CHOLECALCIFEROL (VITAMIN D3) 1,000 UNIT TABLET PO SCH (08:17)
[2019-07-26] MEDS: MAGNESIUM CHLORIDE ER 64 MG TABLET.ER PO SCH (08:17)
[2019-07-26] MEDS: UBIDECARENONE 50 MG CAPSULE. PO SCH ×2 (08:17→20:08)
[2019-07-26] MEDS: LACTOBACILLUS RHAMNOSUS GG 1 CAPSULE. PO SCH ×2 (08:17→20:08)
[2019-07-26] MEDS: ASPIRIN ENTERIC COATED 81 MG TABLET.DR. PO SCH (08:18)
[2019-07-26] MEDS: metFORMIN 500 MG TABLET PO SCH ×2 (08:18→16:57)
[2019-07-26] MEDS: POTASSIUM CHLORIDE 20 MEQ TABLET.ER. PO SCH (08:18)
[2019-07-26] MEDS: CARVEDILOL 3.125 MG TABLET PO SCH ×2 (08:18→16:57)
[2019-07-26] MEDS: FOLIC ACID 1 MG TABLET PO SCH (08:19)
[2019-07-26] MEDS: SERTRALINE 100 MG TABLET. PO SCH (08:19)
[2019-07-26] MEDS: ACETAMINOPHEN 500 MG TABLET PO PRN (09:24)
[2019-07-26 15:58] VITALS: BP 144/72
--- NOTE | 2019-07-26 16:08 | NUR ---
Has been A & O this shift, cooperative and social with peers. Had diarrhea X1 this a.m. after breakfast and took immodium PO. Denies S/I or any self harm thoughts or hearing any voices. Addendum: 07/26/19 at 1617 by ELENA RICO RN RN This previous entry was for another pt. Charted on wrong chart. Glenys has been A & O, social with peers, napped in afternoon. Displays lack of impulse control at times, as she forgets to ask for help when getting out of bed or transferring. Has difficulty maneuverinig wheel chair, seems to not be able to grasp how to move self in correct direction. Fine tremors of hands at times. Pleasant and cooperative.
[2019-07-26] MEDS: MIRTAZAPINE 15 MG TABLET PO SCH (20:08)
[2019-07-26] MEDS: MELATONIN 3 MG TABLET PO SCH (20:08)
--- NOTE | 2019-07-26 22:41 | PDOC ---
Exam Note: Flavio Note: Please also refer to the separate dictated note~for this date of service dictated separately.~Patient seen individually. Discussed the patient with Nursing staff reviewed the chart.~Reviewed interim history and current functioning. Reviewed vital signs,~Labs/ Radiology~and current medications noted below. Continue current treatment with the changes noted in the dictated addendum note Assessment: Vital Signs/I&O: Vital Signs Date Time Temp Pulse Resp B/P (MAP) Pulse Ox O2 Delivery O2 Flow Rate FiO2 07/26/19 16:57 76 144/72 07/26/19 15:58 97.9 20 97 07/26/19 06:00 Room Air I & O 07/25/19 07/25/19 07/26/19 15:00 23:00 07:00 Intake Total 960 ml 360 ml Balance 960 ml 360 ml Current Medications: I have reviewed the current psychotropics carefully including drug interactions. Risk benefit ratio favors no change other than as noted in my dictated progress note. Diagnosis: Problems: (1) Anxiety disorder (2) Dementia, vascular, with delusions (3) Dementia, vascular, with depression (4) Dementia in Alzheimer's disease with delusions (5) Dementia in Alzheimer's disease with depression (6) Impulse control disorder (7) Delirium due to general medical condition PAUL SHER MD Jul 26, 2019 22:41
--- NOTE | 2019-07-26 23:37 | NUR ---
Pt located in the dayroom this evening. Pt calm, pleasant and interactive. Compliant with medications.
[2019-07-27 05:44] VITALS: BP 129/70
[2019-07-27] MEDS: MAGNESIUM CHLORIDE ER 64 MG TABLET.ER PO SCH (07:54)
[2019-07-27] MEDS: metFORMIN 500 MG TABLET PO SCH ×2 (07:54→17:06)
[2019-07-27] MEDS: POTASSIUM CHLORIDE 20 MEQ TABLET.ER. PO SCH (07:54)
[2019-07-27] MEDS: FAMOTIDINE 20 MG TABLET PO SCH ×2 (07:54→19:47)
[2019-07-27] MEDS: UBIDECARENONE 50 MG CAPSULE. PO SCH ×2 (07:54→19:47)
[2019-07-27] MEDS: ASPIRIN ENTERIC COATED 81 MG TABLET.DR. PO SCH (07:54)
[2019-07-27] MEDS: CARVEDILOL 3.125 MG TABLET PO SCH ×2 (07:55→17:07)
[2019-07-27] MEDS: FOLIC ACID 1 MG TABLET PO SCH (07:55)
[2019-07-27] MEDS: SERTRALINE 100 MG TABLET. PO SCH (07:55)
[2019-07-27] MEDS: LACTOBACILLUS RHAMNOSUS GG 1 CAPSULE. PO SCH ×2 (07:55→19:46)
[2019-07-27] MEDS: CHOLECALCIFEROL (VITAMIN D3) 1,000 UNIT TABLET PO SCH (07:55)
--- NOTE | 2019-07-27 10:38 | NUR ---
A & O, focusing more on plans for after discharge. Asking when someone would talk to her about discharge. Informed discharge planning starts the day of admission, but as it became closer, she would be notified. States her and family have been checking into more help in the home for them. Lower leg edema greater on R side, continues to elevate feet when seated. Compliant with program, but becoming bored and states "days are getting longer around here: Denies delusions or hallucinations.
[2019-07-27 16:06] VITALS: BP 147/76
[2019-07-27] MEDS: ACETAMINOPHEN 500 MG TABLET PO PRN (18:00)
[2019-07-27] MEDS: MELATONIN 3 MG TABLET PO SCH (19:47)
[2019-07-27] MEDS: MIRTAZAPINE 15 MG TABLET PO SCH (19:47)
--- NOTE | 2019-07-27 22:20 | PN ---
DATE: 07/25/2019 PSYCHIATRIC PROGRESS NOTE. This late entry of 07/25/2019 covers the elements not covered in my initial note. SUBJECTIVE: I met with the patient in the evening of 07/25/2019. For the most part, the patient is doing better. She slept 8-1/4 hours previous night, was active with physical therapy staff. She is trying to get out of bed by herself, is a fall risk. Nursing staff have to remind her, she gets forgetful. REVIEW OF SYSTEMS: No CV, , pulmonary, eye, ENT system symptoms on review. Reliability varies. Gait unsteady. MENTAL STATUS EXAM: Oriented to herself and situation. Speech is coherent, abstraction fair, computation impaired, language function intact, attention span short. Mood and affect showing improvement. She was much brighter, interactive, more alert. Short term memory deficits are evident. LABORATORY DATA: Reviewed. IMPRESSION: Unchanged from initial note. PLAN: No change from initial note. PAUL SHER MD DR: JACE/michelle JOB#: [id number] / [id number]
--- NOTE | 2019-07-27 22:23 | PN ---
DATE: 07/26/2019 PSYCHIATRIC PROGRESS NOTE This late entry of 07/26/2019 covers the elements not covered in my initial note. SUBJECTIVE: I met with the patient in the evening of 07/26/2019. The patient slept 8-1/2 hours previous night. She has been more alert, pleasant. REVIEW OF SYSTEMS: Ambulation impaired, in wheelchair. No CV, , pulmonary, eye, ENT system symptoms on review. MENTAL STATUS EXAM: The patient is oriented to herself and situation. Speech is coherent, abstraction fair, computation impaired, language function intact, attention span fair. Mood and affect is improved. She talks several times a day to her who frequently calls. LABORATORY DATA: Reviewed. IMPRESSION: Unchanged from initial note. PLAN: No change from initial note. MAN Radha SHER MD DR: JACE/michelle JOB#: [id number] / [id number]
--- NOTE | 2019-07-27 22:23 | PDOC ---
Exam Note: Flavio Note: Please also refer to the separate dictated note~for this date of service dictated separately.~Patient seen individually. Discussed the patient with Nursing staff reviewed the chart.~Reviewed interim history and current functioning. Reviewed vital signs,~Labs/ Radiology~and current medications noted below. Continue current treatment with the changes noted in the dictated addendum note Assessment: Vital Signs/I&O: Vital Signs Date Time Temp Pulse Resp B/P (MAP) Pulse Ox O2 Delivery O2 Flow Rate FiO2 07/27/19 17:07 83 147/76 07/27/19 16:06 97.7 18 96 07/26/19 06:00 Room Air I & O 07/26/19 07/26/19 07/27/19 14:59 22:59 06:59 Intake Total 1080 ml 240 ml 100 ml Balance 1080 ml 240 ml 100 ml Labs: Laboratory Tests Test 07/27/19 07:22 Glucose (Fingerstick) 123 mg/dL (70-99) H Current Medications: I have reviewed the current psychotropics carefully including drug interactions. Risk benefit ratio favors no change other than as noted in my dictated progress note. Diagnosis: Problems: (1) Anxiety disorder (2) Dementia, vascular, with delusions (3) Dementia, vascular, with depression (4) Dementia in Alzheimer's disease with delusions (5) Dementia in Alzheimer's disease with depression (6) Impulse control disorder (7) Delirium due to general medical condition PAUL SHER MD Jul 27, 2019 22:23
--- NOTE | 2019-07-27 23:02 | NUR ---
Pt pleasant, calm and cooperative. Compliant with medications. No behaviors noted.
[2019-07-28 05:51] VITALS: BP 179/81
[2019-07-28 06:44] LABS: BASO # 0.1 x10^3/uL (0.0-0.2); BASO % 2 % (0-3); EOS # 0.4 x10^3/uL (0.0-0.7); EOS % 8 % (0-3); HEMATOCRIT 34.7 % (36.0-47.0); HEMOGLOBIN 11.4 g/dL (12.0-15.5); LYMPH # 1.3 x10^3/uL (1.0-4.8); LYMPH % 29 % (24-48); MEAN CORPUSCULAR HEMOGLOBIN 28 pg (25-35); MEAN CORPUSCULAR HGB CONC 33 g/dL (31-37); MEAN CORPUSCULAR VOLUME 85 fL (79-100); MONO # 0.5 x10^3/uL (0.0-1.1); MONO % 12 % (0-9); NEUT # 2.3 x10^3uL (1.8-7.7); NEUT % 50 % (31-73); PLATELET COUNT 275 x10^3/uL (140-400); RED BLOOD COUNT 4.07 x10^6/uL (3.50-5.40); RED CELL DISTRIBUTION WIDTH 14.9 % (11.5-14.5); WHITE BLOOD COUNT 4.7 x10^3/uL (4.0-11.0)
[2019-07-28 06:50] LABS: ALBUMIN 2.8 g/dL (3.4-5.0); ALBUMIN/GLOBULIN RATIO 0.8 (1.0-1.7); CREATININE 0.9 mg/dL (0.6-1.0); GFR 60.7; POTASSIUM 4.1 mmol/L (3.5-5.1); TOTAL BILIRUBIN 0.2 mg/dL (0.2-1.0); TOTAL PROTEIN 6.2 g/dL (6.4-8.2)
--- NOTE | 2019-07-28 09:00 | NUR ---
Nursing Note: Pt calm, pleasant, cooperative, medications taken whole. Pt using walker more often, interactive w/ peers and staff.
[2019-07-28] MEDS: MAGNESIUM CHLORIDE ER 64 MG TABLET.ER PO SCH (09:30)
[2019-07-28] MEDS: SERTRALINE 100 MG TABLET. PO SCH (09:30)
[2019-07-28] MEDS: metFORMIN 500 MG TABLET PO SCH ×2 (09:30→17:04)
[2019-07-28] MEDS: CHOLECALCIFEROL (VITAMIN D3) 1,000 UNIT TABLET PO SCH (09:30)
[2019-07-28] MEDS: POTASSIUM CHLORIDE 20 MEQ TABLET.ER. PO SCH (09:30)
[2019-07-28] MEDS: UBIDECARENONE 50 MG CAPSULE. PO SCH ×2 (09:30→19:27)
--- NOTE | 2019-07-28 09:30 | NUR ---
RICK returned email to pt son re: his inquiry about placement and the bill received re: pt transport. Below is the correspondence: "I never heard back from you last week, so I guess you are still trying to get [facility] approve taking my mother. Let me know when you hear anything. Finally, my Dad just got a bill for Mom�s ambulance ride from [place] to [place]. It was not submitted to Medicare or [facility] [place]. Just reading a little bit online, they say they need proof of reason to transport a patient before they will pay. Does this come from [facility] who [facility]? A little guidance would be appreciated. And if it is something you fill out, please email me a letter. Thank you". "Good morning Cliff! I am still trying to get ahJoe from [facility]. I sent her everything as requested on but haven't heard anything back. I will be reaching out again once I get into work. In reference to your bill on the ambulance ride, [facility] will need to supply the proof. Usually if it's billed to Medicare as non-emergency, Glenys would have to be an incredible fall risk, need medical care that can't be provided by wheelchair transport, or any supportive evidence that states why she couldn't be transferred otherwise. This could also be billed wrong via the ambulance company. I'd check with Kindra Cummings first to see how it was worded when transport was set up. Hope this helps!!"
[2019-07-28] MEDS: FAMOTIDINE 20 MG TABLET PO SCH ×2 (09:31→19:27)
[2019-07-28] MEDS: CARVEDILOL 3.125 MG TABLET PO SCH ×2 (09:31→17:04)
[2019-07-28] MEDS: FOLIC ACID 1 MG TABLET PO SCH (09:31)
[2019-07-28] MEDS: ASPIRIN ENTERIC COATED 81 MG TABLET.DR. PO SCH (09:31)
[2019-07-28] MEDS: LACTOBACILLUS RHAMNOSUS GG 1 CAPSULE. PO SCH ×2 (09:31→19:27)
--- NOTE | 2019-07-28 10:00 | NUR ---
RICK attempted to contact Bridget at [facility] to discuss whether or not they have made a decision on pt placement. RICK faxed over all papers as requested on . RICK left a message asking for a returned call and will try to call back later this afternoon.
[2019-07-28 15:34] VITALS: BP 130/71
--- NOTE | 2019-07-28 17:23 | RAD ---
2 view study of the right femur and AP view of the right hip and AP view of the pelvis Clinical indications: Right thigh pain. FINDINGS: There are displaced fractures of the superior and inferior pubic rami on the right side. There is cortical disruption of the lateral inferior aspect of the greater trochanter seen on the frog-leg view. Possible nondisplaced fracture of the greater trochanter is possible. Right hip joint is normally aligned. No significant arthritic change of the right hip joint is seen. No lytic process is seen. IMPRESSION: Fractures of the inferior and superior pubic rami on the right side. Possible nondisplaced fracture of the greater trochanter of the proximal right femur. Electronically signed by: Jeff Barnes MD (07/28/2019 5:20 PM) [facility]
[2019-07-28] MEDS: MELATONIN 3 MG TABLET PO SCH (19:27)
[2019-07-28] MEDS: MIRTAZAPINE 15 MG TABLET PO SCH (19:27)
--- NOTE | 2019-07-28 19:30 | NUR ---
Nursing Note: Pt calm, pleasant, cooperative, medications taken whole. Pt sitting up in her wheelchair, watching TV in the dayroom. Pt interactive and pleasant w/ peers and staff. Pt does complain of mild pain to her right leg, due to increased activity throughout the day. Pt denies needing a PRN pain pill at this time.
--- NOTE | 2019-07-28 21:44 | PDOC ---
Exam Note: Flavio Note: Please also refer to the separate dictated note~for this date of service dictated separately.~Patient seen individually. Discussed the patient with Nursing staff reviewed the chart.~Reviewed interim history and current functioning. Reviewed vital signs,~Labs/ Radiology~and current medications noted below. Continue current treatment with the changes noted in the dictated addendum note Assessment: Vital Signs/I&O: Vital Signs Date Time Temp Pulse Resp B/P (MAP) Pulse Ox O2 Delivery O2 Flow Rate FiO2 07/28/19 17:04 87 130/71 07/28/19 15:34 97.2 16 98 07/26/19 06:00 Room Air I & O 07/27/19 07/27/19 07/28/19 15:00 23:00 07:00 Intake Total 720 ml 480 ml Balance 720 ml 480 ml Labs: Laboratory Tests Test 07/28/19 06:09 07/28/19 07:30 White Blood Count 4.7 x10^3/uL (4.0-11.0) Red Blood Count 4.07 x10^6/uL (3.50-5.40) Hemoglobin 11.4 g/dL (12.0-15.5) L Hematocrit 34.7 % (36.0-47.0) L Mean Corpuscular Volume 85 fL (79-100) Mean Corpuscular Hemoglobin 28 pg (25-35) Mean Corpuscular Hemoglobin Concent 33 g/dL (31-37) Red Cell Distribution Width 14.9 % (11.5-14.5) H Platelet Count 275 x10^3/uL (140-400) Neutrophils (%) (Auto) 50 % (31-73) Lymphocytes (%) (Auto) 29 % (24-48) Monocytes (%) (Auto) 12 % (0-9) H Eosinophils (%) (Auto) 8 % (0-3) H Basophils (%) (Auto) 2 % (0-3) Neutrophils # (Auto) 2.3 x10^3uL (1.8-7.7) Lymphocytes # (Auto) 1.3 x10^3/uL (1.0-4.8) Monocytes # (Auto) 0.5 x10^3/uL (0.0-1.1) Eosinophils # (Auto) 0.4 x10^3/uL (0.0-0.7) Basophils # (Auto) 0.1 x10^3/uL (0.0-0.2) Sodium Level 138 mmol/L (136-145) Potassium Level 4.1 mmol/L (3.5-5.1) Chloride Level 105 mmol/L (98-107) Carbon Dioxide Level 24 mmol/L (21-32) Anion Gap 9 (6-14) Blood Urea Nitrogen 26 mg/dL (7-20) H Creatinine 0.9 mg/dL (0.6-1.0) Estimated GFR (Cockcroft-Gault) 60.7 BUN/Creatinine Ratio 29 (6-20) H Glucose Level 116 mg/dL (70-99) H Calcium Level 10.0 mg/dL (8.5-10.1) Total Bilirubin 0.2 mg/dL (0.2-1.0) Aspartate Amino Transferase (AST) 17 U/L (15-37) Alanine Aminotransferase (ALT) 19 U/L (14-59) Alkaline Phosphatase 141 U/L (46-116) H Total Protein 6.2 g/dL (6.4-8.2) L Albumin 2.8 g/dL (3.4-5.0) L Albumin/Globulin Ratio 0.8 (1.0-1.7) L Glucose (Fingerstick) 116 mg/dL (70-99) H Current Medications: I have reviewed the current psychotropics carefully including drug interactions. Risk benefit ratio favors no change other than as noted in my dictated progress note. Diagnosis: Problems: (1) Anxiety disorder (2) Dementia, vascular, with delusions (3) Dementia, vascular, with depression (4) Dementia in Alzheimer's disease with delusions (5) Dementia in Alzheimer's disease with depression (6) Impulse control disorder (7) Delirium due to general medical condition PAUL SHER MD Jul 28, 2019 21:44
--- NOTE | 2019-07-29 01:07 | PN ---
DATE: 07/27/2019 PSYCHIATRIC PROGRESS NOTE This late entry 07/27/2019 covers elements not covered in my initial note. SUBJECTIVE: I met with the patient in the evening of 07/27/2019. The patient slept 7-1/2 hours previous night. She is more alert and oriented, which is an improvement. She is having some hand tremors. REVIEW OF SYSTEMS: Ambulation impaired, in wheelchair. No CV, , pulmonary, eye, ENT system symptoms on review. MENTAL STATUS EXAM: Oriented to herself and situation. Speech is coherent, very pleasant, much brighter, and interactive as I met with her. Abstraction fair, computation impaired, language function intact. Short term memory is showing improvement. LABORATORY DATA: Reviewed. IMPRESSION: Unchanged from initial note. PLAN: No change from initial note. MAN Radha SHER MD DR: JACE/michelle JOB#: [id number] / [id number]
[2019-07-29] MEDS: ACETAMINOPHEN 500 MG TABLET PO PRN (05:26)
[2019-07-29 05:47] VITALS: BP 166/78
[2019-07-29] MEDS: ASPIRIN ENTERIC COATED 81 MG TABLET.DR. PO SCH (07:48)
[2019-07-29] MEDS: metFORMIN 500 MG TABLET PO SCH ×2 (07:48→16:22)
[2019-07-29] MEDS: POTASSIUM CHLORIDE 20 MEQ TABLET.ER. PO SCH (07:48)
[2019-07-29] MEDS: SERTRALINE 100 MG TABLET. PO SCH (07:48)
[2019-07-29] MEDS: FAMOTIDINE 20 MG TABLET PO SCH ×2 (07:48→19:47)
[2019-07-29] MEDS: MAGNESIUM CHLORIDE ER 64 MG TABLET.ER PO SCH (07:48)
[2019-07-29] MEDS: UBIDECARENONE 50 MG CAPSULE. PO SCH ×2 (07:48→19:47)
[2019-07-29] MEDS: CHOLECALCIFEROL (VITAMIN D3) 1,000 UNIT TABLET PO SCH (07:48)
[2019-07-29] MEDS: LACTOBACILLUS RHAMNOSUS GG 1 CAPSULE. PO SCH ×2 (07:50→19:47)
[2019-07-29] MEDS: FOLIC ACID 1 MG TABLET PO SCH (07:50)
[2019-07-29] MEDS: CARVEDILOL 3.125 MG TABLET PO SCH ×2 (07:51→16:22)
--- NOTE | 2019-07-29 08:35 | NUR ---
Patient is located in dining room at time of assessment and medication administration. Patient is pleasant interacting and talking with peers. Patient is compliant with assessment and medications taken whole with water. Patient reports R hip pain 5/10. Patient is visiting with peers in dining room at this time. Will continue to monitor.
--- NOTE | 2019-07-29 15:10 | NUR ---
RICK met with Federica Deluca from [facility] re: a referral on pt. RICK informed Federica that pt would not need more than a month to fully get back on her feet and be able to return home. Federica met with pt who is a little worried about the distance from home, but will talk to her about going to [facility]. Pt was alert and oriented x 4. She was able to discuss current events and mentioned the fact that her drivers license while she is here on [facility]. Pt also discussed her duties as far as caring for pt at home who has decreased cognition, shoulder and knee trouble. RICK informed pt that her is very kind and concerned about when she gets to come home, in which pt stated "it's just because he can't use the stove". RICK replied "no, you have been for over 50 years and he misses his . He's lost without you". Pt became tearful and patted SW hand. Pt wanted to talk to Syed and Cliff, pt son, about the possibility of going to [facility]. as it is almost an hours away from home. RICK will follow-up with all parties and discuss those options.
[2019-07-29 15:36] VITALS: BP 163/78
--- NOTE | 2019-07-29 16:30 | NUR ---
RICK received a call from pt , Syed, who wanted to know when pt was coming home. RICK explained that a facility saw pt today, in which Syed reports that pt talked to him about that earlier, which prompted him to call RICK. Syed is fine with pt going there as pt will still be closer to home and really wants to get her out. RICK explained to Syed that [facility] still has not made a decision as they have continued to request more information. He stated "why haven't they accepted her? Do they think she is crazy?" RICK explained that they are just being very cautious and want to make sure they can provide the appropriate services for pt. Syed wants pt discharge immediately and said if [facility] will accept her then so be it. RICK will contact pt son, Cliff, to see if he agrees with this and then check in with both facilities.
[2019-07-29] MEDS: MELATONIN 3 MG TABLET PO SCH (19:47)
[2019-07-29] MEDS: MIRTAZAPINE 15 MG TABLET PO SCH (19:47)
--- NOTE | 2019-07-29 21:45 | PDOC ---
Exam Note: Flavio Note: Please also refer to the separate dictated note~for this date of service dictated separately.~Patient seen individually. Discussed the patient with Nursing staff reviewed the chart.~Reviewed interim history and current functioning. Reviewed vital signs,~Labs/ Radiology~and current medications noted below. Continue current treatment with the changes noted in the dictated addendum note Assessment: Vital Signs/I&O: Vital Signs Date Time Temp Pulse Resp B/P (MAP) Pulse Ox O2 Delivery O2 Flow Rate FiO2 07/29/19 16:22 83 163/78 07/29/19 15:36 97.1 16 98 07/29/19 05:47 Room Air I & O 07/28/19 07/28/19 07/29/19 15:00 23:00 07:00 Intake Total 720 ml 360 ml Balance 720 ml 360 ml Labs: Laboratory Tests Test 07/29/19 07:34 Glucose (Fingerstick) 99 mg/dL (70-99) Current Medications: I have reviewed the current psychotropics carefully including drug interactions. Risk benefit ratio favors no change other than as noted in my dictated progress note. Diagnosis: Problems: (1) Anxiety disorder (2) Dementia, vascular, with delusions (3) Dementia, vascular, with depression (4) Dementia in Alzheimer's disease with delusions (5) Dementia in Alzheimer's disease with depression (6) Impulse control disorder (7) Delirium due to general medical condition PAUL SHER MD Jul 29, 2019 21:45
--- NOTE | 2019-07-29 23:32 | PN ---
DATE: 07/28/2019 PSYCHIATRIC PROGRESS NOTE This late entry 07/28/2019 covers elements not covered in my initial note. SUBJECTIVE: I met with the patient evening of 07/28/2019. The patient slept 6-1/2 hours previous night. She had some complaints of lower extremity pain. X-ray of the hip was done per Dr. Atwood, was negative and she seems to have tight hamstrings and physical therapy staff will address this. She has been walking with physical therapy, occupational therapy. REVIEW OF SYSTEMS: Ambulation impaired, in wheelchair. No CV, , pulmonary, eye, ENT system symptoms on review. MENTAL STATUS EXAM: Oriented to herself, situation. Speech is coherent, abstraction fair, computation impaired, language function intact. Mood and affect shows improvement and she is very bright eyed, verbally interactive, appropriate, though does have short-term memory deficits. LABORATORY DATA: Reviewed. IMPRESSION: Unchanged from initial note. PLAN: No change from initial note. PAUL SHER MD DR: JACE/michelle JOB#: [id number] / [id number]
[2019-07-30 05:49] VITALS: BP 182/78
[2019-07-30] MEDS: metFORMIN 500 MG TABLET PO SCH ×2 (09:00→17:12)
[2019-07-30] MEDS: ASPIRIN ENTERIC COATED 81 MG TABLET.DR. PO SCH (09:00)
[2019-07-30] MEDS: ACETAMINOPHEN 500 MG TABLET PO PRN (09:00)
[2019-07-30] MEDS: UBIDECARENONE 50 MG CAPSULE. PO SCH ×2 (09:00→19:31)
[2019-07-30] MEDS: LACTOBACILLUS RHAMNOSUS GG 1 CAPSULE. PO SCH ×2 (09:00→19:31)
[2019-07-30] MEDS: FOLIC ACID 1 MG TABLET PO SCH (09:00)
[2019-07-30] MEDS: FAMOTIDINE 20 MG TABLET PO SCH ×2 (09:00→19:31)
[2019-07-30] MEDS: POTASSIUM CHLORIDE 20 MEQ TABLET.ER. PO SCH (09:00)
[2019-07-30] MEDS: CHOLECALCIFEROL (VITAMIN D3) 1,000 UNIT TABLET PO SCH (09:00)
[2019-07-30] MEDS: SERTRALINE 100 MG TABLET. PO SCH (09:00)
[2019-07-30] MEDS: CARVEDILOL 3.125 MG TABLET PO SCH ×2 (09:01→17:12)
[2019-07-30] MEDS: MAGNESIUM CHLORIDE ER 64 MG TABLET.ER PO SCH (09:01)
--- NOTE | 2019-07-30 10:00 | NUR ---
Nursing Note: Pt calm, pleasant, cooperative, medications taken whole. Pt sitting up in her wheelchair, watching TV in the day room. Pt interactive and pleasant w/ peers and staff. Pt does C/O mild pain to her right hip, PRN given w/ morning medications. Will continue to monitor.
--- NOTE | 2019-07-30 10:40 | NUR ---
RICK contacted trisha Gill at [facility], and responded to her questions re: pt DPOA, which is her son and that LTC would not be considered. Pt would just need rehab and then discharge home. RICK explained that pt is pretty independent with the w/c; however, walks side by side with staff and a gait belt, as time allows and with PT/OT. Bridget will inform her team and then get back to RICK with their answer.
--- NOTE | 2019-07-30 12:57 | NUR ---
Nursing Note: At lunch, pt reported no pain, stating that medication given this morning was very helpful. Instructed pt to report to this nurse or staff if more medication is needed for pain.
[2019-07-30 15:42] VITALS: BP 153/67
--- NOTE | 2019-07-30 17:40 | NUR ---
RICK intercepted the call from [facility] and spoke to Syed, pt , about having pt discharge to [facility] for rehab either tomorrow with them paying out of pocket for transport or waiting until Sunday, in which the facility is able to pick pt up at 1500. Syed asked how much it would be and RICK estimated that it would be higher$200 to $300 as transportation companies charge $65 plus mileage. With them being 2 [place] hours away it could be costly. Syed agreed and figured Sunday would be better. He will not plan to tell pt this until everything has been set up. RICK will also contact pt son to let him know about discharge and the discussion had with Syed.
--- NOTE | 2019-07-30 18:18 | NUR ---
Nursing Note: Dr. Atwood reviewed pt's X-ray's and found that pt is fine to be weight bearing
[2019-07-30 18:58] LABS: BACTERIA,URINE FEW /HPF (0-FEW); BILIRUBIN,URINE NEG (NEG); CLARITY,URINE CLEAR; COLOR,URINE YELLOW; GLUCOSE,URINE NEG (NEG); GRANULAR CASTS,URINE OCC /HPF; HYALINE CASTS, URINE OCC /HPF; NITRITE,URINE NEG (NEG); RBC,URINE RARE /HPF (0-2); SQUAMOUS EPITHELIAL CELL,UR OCC /LPF; UROBILINOGEN,URINE 0.2 mg/dL (0.2 mg/dL)
[2019-07-30] MEDS: MELATONIN 3 MG TABLET PO SCH (19:31)
[2019-07-30] MEDS: MIRTAZAPINE 15 MG TABLET PO SCH (19:31)
--- NOTE | 2019-07-30 20:00 | NUR ---
Pt sitting quietly in day room meds taken without problems. She asked about recent x ray results and results discussed with her. No behaviors pleasant and cooperative
--- NOTE | 2019-07-30 21:07 | PDOC ---
Exam Note: Flavio Note: Please also refer to the separate dictated note~for this date of service dictated separately.~Patient seen individually. Discussed the patient with Nursing staff reviewed the chart.~Reviewed interim history and current functioning. Reviewed vital signs,~Labs/ Radiology~and current medications noted below. Continue current treatment with the changes noted in the dictated addendum note Assessment: Vital Signs/I&O: Vital Signs Date Time Temp Pulse Resp B/P (MAP) Pulse Ox O2 Delivery O2 Flow Rate FiO2 07/30/19 17:12 81 153/67 07/30/19 15:42 97.7 20 100 07/29/19 05:47 Room Air I & O 07/29/19 07/29/19 07/30/19 14:59 22:59 06:59 Intake Total 960 ml 480 ml Balance 960 ml 480 ml Labs: Laboratory Tests Test 07/30/19 07:53 07/30/19 16:33 07/30/19 19:43 Glucose (Fingerstick) 106 mg/dL (70-99) H 120 mg/dL (70-99) H Urine Collection Type Unknown Urine Color Yellow Urine Clarity Clear Urine pH 6.0 Urine Specific [place] 1.025 Urine Protein >100 mg/dl (NEG-TRACE) Urine Glucose (UA) Neg mg/dL (NEG) Urine Ketones (Stick) Neg mg/dL (NEG) Urine Blood Trace (NEG) Urine Nitrite Neg (NEG) Urine Bilirubin Neg (NEG) Urine Urobilinogen Dipstick 0.2 mg/dL (0.2 mg/dL) Urine Leukocyte Esterase Trace (NEG) Urine RBC Rare /HPF (0-2) Urine WBC 11-20 /HPF (0-4) Urine Squamous Epithelial Cells Occ /LPF Urine Bacteria Few /HPF (0-FEW) Urine Hyaline Casts Occ /HPF Urine Granular Casts Occ /HPF Urine Mucus Mod /LPF Current Medications: I have reviewed the current psychotropics carefully including drug interactions. Risk benefit ratio favors no change other than as noted in my dictated progress note. Diagnosis: Problems: (1) Anxiety disorder (2) Dementia, vascular, with delusions (3) Dementia, vascular, with depression (4) Dementia in Alzheimer's disease with delusions (5) Dementia in Alzheimer's disease with depression (6) Impulse control disorder (7) Delirium due to general medical condition PAUL SHER MD Jul 30, 2019:07
[2019-07-30] MEDS ORDERED: LACT1CAP21 PO (23:54)
[2019-07-30] MEDS ORDERED: MAG30ORA2 PO (23:56)
[2019-07-30] MEDS ORDERED: MAGN64TA7 PO (23:57)
[2019-07-30] MEDS ORDERED: MAGN2400 PO (23:58)
[2019-07-31] MEDS ORDERED: METH29OI TP (00:01)
[2019-07-31] MEDS ORDERED: MIRT15TA3 PO (00:02)
[2019-07-31] MEDS ORDERED: OLAN5TAB5 PO (00:03)
[2019-07-31] MEDS ORDERED: PHEN-443 PO (00:05)
[2019-07-31] MEDS ORDERED: CARV6.2541 PO (00:07)
[2019-07-31] MEDS ORDERED: POTA20TA82 PO (00:07)
--- NOTE | 2019-07-31 00:42 | PN ---
DATE: 07/29/2019 PSYCHIATRIC PROGRESS NOTE This late entry 07/29/2019 covers elements not covered in my initial note. SUBJECTIVE: I met with the patient evening of 07/29/2019. The patient slept 7 hours previous night. She has not had any behavioral problems, has been pleasant, more awake, alert, oriented, compliant with PT and occupational therapy. We will repeat a UA, make sure she does not have a UTI causing some of her ongoing confusion. REVIEW OF SYSTEMS: Ambulation impaired, in wheelchair. No CV, , pulmonary, eye, ENT system symptoms on review. Reliability fair. MENTAL STATUS EXAM: Oriented to herself and situation. Speech is coherent, pleasant, verbal, as I met with her. Abstraction fair, computation impaired, language function intact, attention span short. Mood and affect more animated. LABORATORY DATA: Reviewed. IMPRESSION: Unchanged from initial note. PLAN: No change from initial note. PAUL SHER MD DR: JACE/michelle JOB#: [id number] / [id number]
[2019-07-31 05:24] VITALS: BP 152/61
--- NOTE | 2019-07-31 05:40 | NUR ---
PRN tylenol 1000 mg given for rt hip and leg pain.
[2019-07-31] MEDS: ACETAMINOPHEN 500 MG TABLET PO PRN (06:40)
[2019-07-31] MEDS: ASPIRIN ENTERIC COATED 81 MG TABLET.DR. PO SCH (09:36)
[2019-07-31] MEDS: metFORMIN 500 MG TABLET PO SCH ×2 (09:36→16:23)
[2019-07-31] MEDS: FAMOTIDINE 20 MG TABLET PO SCH ×2 (09:36→19:44)
[2019-07-31] MEDS: LACTOBACILLUS RHAMNOSUS GG 1 CAPSULE. PO SCH ×2 (09:37→19:44)
[2019-07-31] MEDS: CARVEDILOL 3.125 MG TABLET PO SCH ×2 (09:37→16:22)
[2019-07-31] MEDS: POTASSIUM CHLORIDE 20 MEQ TABLET.ER. PO SCH (09:37)
[2019-07-31] MEDS: FOLIC ACID 1 MG TABLET PO SCH (09:38)
[2019-07-31] MEDS: MAGNESIUM CHLORIDE ER 64 MG TABLET.ER PO SCH (09:38)
[2019-07-31] MEDS: SERTRALINE 100 MG TABLET. PO SCH (09:38)
[2019-07-31] MEDS: CHOLECALCIFEROL (VITAMIN D3) 1,000 UNIT TABLET PO SCH (09:38)
[2019-07-31] MEDS: UBIDECARENONE 50 MG CAPSULE. PO SCH ×2 (09:38→19:44)
--- NOTE | 2019-07-31 10:10 | NUR ---
WEEKLY NOTE: Pt is eating 75-100% and sleeping on average 7.5 hours of sleep. Pt will discharge tomorrow to [facility]. Pt does have some episodes of restlessness but otherwise, he is doing okay.
--- NOTE | 2019-07-31 10:11 | NUR ---
WEEKLY ACTIVITY THERAPY NOTE Date of Admission: 07/04/2019 Date of AT Assessment: 07/07/2019 Goal aimed: to increase leisure engagement Initial Goal: Pt. will engage in three Activity Therapy groups per week. Goal Changed 07/10: Pt. will engage in one Activity Therapy group per day. Weekly progress towards goal: achieved Group participation level: moderate to full Weekly highlights: all pleasant interactions, pleasant and patient with peers Behaviors observed: Sleepy Sunday, using her walker more and more, working with PT/OT often, social and pleasant Plan: no change to goal Beneficial adaptations: closer to admission: 'popcorn style' groups, physical engagement- gross motor, staff support during group sessions. As of July 24: occasional reminders about groups only
--- NOTE | 2019-07-31 13:30 | NUR ---
SW spoke with pt about being able to discharge tomorrow. Pt was happy and wanted to know what she needed to do to prepare. SW informed her that there is nothing for her to do. SW encouraged pt to enjoy the 24 hours of her stay on [facility] and attend as many groups as she can. Furthermore, SW informed her to get a good nights rest in preparation to transfer to the facility tomorrow and get rehab started to get her home.
--- NOTE | 2019-07-31 14:30 | NUR ---
SW contacted pt son Cliff to discuss discharge plans and to inform him that pt has made leaps and bounds within her cognitive status and physically. Pt can at times appear restless and impulsive but has been able to be out of the w/c and walking with a walker. SW and pt son also talked about [facility] continuing to assess if they are able to take pt. SW informed son that paperwork was sent, then they called back wanting more paperwork, they wanted to know about DPOA and why rehab versus LTC. Pt son agreed that pt may be better off going to [facility]. SW will fax everything over so that they will be able to have pt medications filled and start pt plan of care DON[place].
--- NOTE | 2019-07-31 15:30 | NUR ---
[facility] Social Work Discharge Planning Form Patient Name AMAN HAMM Admit Date: 07/04/19 DISCHARGE PLAN Discharge Destination: [facility] Assessment: N/A Level II Assessment: N/A Transportation: Facility to arrange and send transportation for 1500. Special Instructions/Notes: Please fax all discharge orders and the medication list to the fax number DISCHARGE TO FACILITY Facility: [facility] Address: [address] [place] [address] Contact Name: Federica Deluca, Administration: Contact Name: Please ask for the nurse caring for pt upon admission: PCP: Kelsey Oh
[2019-07-31 15:46] VITALS: BP 153/83
--- NOTE | 2019-07-31 18:27 | NUR ---
Nursing Note: Pt calm, compliant, cooperative.
[2019-07-31] MEDS: MIRTAZAPINE 15 MG TABLET PO SCH (19:44)
[2019-07-31] MEDS: MELATONIN 3 MG TABLET PO SCH (19:44)
--- NOTE | 2019-07-31 21:59 | PDOC ---
Exam Note: Flavio Note: Please also refer to the separate dictated note~for this date of service dictated separately.~Patient seen individually. Discussed the patient with Nursing staff reviewed the chart.~Reviewed interim history and current functioning. Reviewed vital signs,~Labs/ Radiology~and current medications noted below. Continue current treatment with the changes noted in the dictated addendum note Assessment: Vital Signs/I&O: Vital Signs Date Time Temp Pulse Resp B/P (MAP) Pulse Ox O2 Delivery O2 Flow Rate FiO2 07/31/19 16:23 82 153/83 07/31/19 15:46 97.3 16 97 Room Air I & O 07/30/19 07/30/19 07/31/19 14:59 22:59 06:59 Intake Total 480 ml 480 ml Balance 480 ml 480 ml Labs: Laboratory Tests Test 07/31/19 07:40 Glucose (Fingerstick) 124 mg/dL (70-99) H Current Medications: I have reviewed the current psychotropics carefully including drug interactions. Risk benefit ratio favors no change other than as noted in my dictated progress note. Diagnosis: Problems: (1) Anxiety disorder (2) Dementia, vascular, with delusions (3) Dementia, vascular, with depression (4) Dementia in Alzheimer's disease with delusions (5) Dementia in Alzheimer's disease with depression (6) Impulse control disorder (7) Delirium due to general medical condition PAUL SHER MD Jul 31, 2019 21:59
--- NOTE | 2019-08-01 01:38 | NUR ---
Last evening pt sat quietly in day room. She is glad to be leaving today but a bit anxious about going to a new place. Meds taken whole without problems and she has been sleeping well
[2019-08-01] MEDS: ACETAMINOPHEN 325 MG TABLET PO PRN (05:54)
[2019-08-01 06:00] VITALS: BP 163/80
[2019-08-01] MEDS: MAGNESIUM CHLORIDE ER 64 MG TABLET.ER PO SCH (07:56)
[2019-08-01] MEDS: SERTRALINE 100 MG TABLET. PO SCH (07:56)
[2019-08-01] MEDS: ASPIRIN ENTERIC COATED 81 MG TABLET.DR. PO SCH (07:56)
[2019-08-01] MEDS: CHOLECALCIFEROL (VITAMIN D3) 1,000 UNIT TABLET PO SCH (07:56)
[2019-08-01] MEDS: FAMOTIDINE 20 MG TABLET PO SCH (07:56)
[2019-08-01] MEDS: UBIDECARENONE 50 MG CAPSULE. PO SCH (07:56)
[2019-08-01] MEDS: metFORMIN 500 MG TABLET PO SCH (07:56)
[2019-08-01] MEDS: FOLIC ACID 1 MG TABLET PO SCH (07:56)
[2019-08-01] MEDS: POTASSIUM CHLORIDE 20 MEQ TABLET.ER. PO SCH (07:56)
[2019-08-01] MEDS: LACTOBACILLUS RHAMNOSUS GG 1 CAPSULE. PO SCH (07:56)
[2019-08-01 07:57] VITALS: BP 163/80
[2019-08-01] MEDS: CARVEDILOL 3.125 MG TABLET PO SCH (07:57)
--- NOTE | 2019-08-01 10:53 | NUR ---
Pt has been calm and compliant with medications. Walked with PT. Excited to be discharging today.
--- NOTE | 2019-08-01 11:55 | NUR ---
Transition Record was faxed to follow-up provider with the following elements: Reason for admission, procedures, tests, principal diagnosis, pending studies, patient instructions, 11/06 contact information for unit, phone number to obtain pending test results, plan for follow-up care, physician follow-up, advanced directive information, and medication list with dose, duration and instructions. This information was included in the following documents: History and physical, lab results, study results, progress notes, social work planning form, DC instruction form, patient visit summary, and medication reconciliation form. Date & time record faxed:08/01/19 1027 Record faxed to: [facility] Record discussed with/ report given to: STACEY Connell
--- NOTE | 2019-08-01 19:29 | DS ---
DATE OF DISCHARGE: 08/01/2019 DISCHARGE SUMMARY/PSYCHIATRIC PROGRESS NOTE This note covers elements not covered in my initial note 08/01/2019. REASON FOR ADMISSION: Please refer to the admission history for details. Briefly, the patient is a 79-year-old female referred to us from [facility] where she presented from home on account of increasing hallucinations, delusions. She has been functioning reasonably well at home taking care of her , had a fall recently and then pelvic fracture, treated on opioids for this and became more confused, psychotic, delirious. She was quite delusional, stating she had "washed the dirty dog in her bed last night with marked insomnia". SIGNIFICANT FINDINGS AND CLINICAL COURSE: Following admission, the patient was seen daily individually by myself from a psychiatric standpoint, Medical followup with Dr. Atwood. She was extremely confused, psychotic, restless, agitated, had to be in a Broda chair. Adjustments were made in her psychotropics. Seroquel was tapered and discontinued, Zoloft and adjusted to 100 mg a day, melatonin 3 mg at bedtime, Remeron 15 mg at bedtime, Zyprexa p.r.n. Gradually mood appeared to improve. Prior to discharge, ambulation impaired, in wheelchair. No CV, , pulmonary, eye system symptoms on review. She was much brighter, alert and interactive. Insight, judgment was much improved, short-term memory was slightly impaired much better than at admission and remote was better. No active suicidal or homicidal ideation. No psychotic symptoms. CONDITION AT DISCHARGE: Improved. FINAL DIAGNOSES: Major depressive disorder with psychotic features, delirium due to general medical condition appeared to be resolved partially major neurocognitive disorder, early Alzheimer, vascular with delusion, depression, in partial remission; anxiety disorder, unspecified; impulse control disorder, unspecified. Rest unchanged from admission. DISCHARGE MEDICATIONS: Please refer to the MRAD. DISCHARGE INSTRUCTIONS: Outpatient psychiatric and medical followup at [facility]. She was discharged on 08/01/2019. MAN Radha SHER MD DR: JACE/michelle JOB#: [id number] / [id number]
--- NOTE | 2019-08-01 20:20 | PN ---
DATE: 07/30/2019 PSYCHIATRIC PROGRESS NOTE This late entry of 07/30/2019 covers elements not covered in my initial note. SUBJECTIVE: I met with the patient in the evening of 07/30/2019. The patient slept 6-3/4 hours previous night. Overall, she appears cognitively clearer, much more awake, alert, still has short-term memory deficits. Repeat x-ray showed a hip fracture, which was recent and initially we thought she just had a pelvic fracture. We will defer to Dr. Atwood, possible orthopedic consult. She did receive Tylenol 1000 mg with relief of pain. REVIEW OF SYSTEMS: Ambulation impaired, in wheelchair. No CV, , pulmonary, eye, ENT system symptoms on review. MENTAL STATUS EXAM: Oriented to herself and situation. Speech has some latency, coherent. Abstraction fair, computation impaired, language function intact, attention span short. Mood and affect showing improvement, brighter, more interactive. LABORATORY DATA: Reviewed. IMPRESSION: Unchanged from initial note. PLAN: No change from initial note. PAUL SHER MD DR: JACE/michelle JOB#: [id number] / [id number]
--- NOTE | 2019-08-01 21:35 | PDOC ---
Exam Note: Flavio Note: Please also refer to the separate dictated note~for this date of service dictated separately.~Patient seen individually. Discussed the patient with Nursing staff reviewed the chart.~Reviewed interim history and current functioning. Reviewed vital signs,~Labs/ Radiology~and current medications noted below. Continue current treatment with the changes noted in the dictated addendum note Assessment: Vital Signs/I&O: Vital Signs Date Time Temp Pulse Resp B/P (MAP) Pulse Ox O2 Delivery O2 Flow Rate FiO2 08/01/19 07:57 79 163/80 08/01/19 06:00 97.5 14 96 07/31/19 15:46 Room Air I & O 07/31/19 07/31/19 08/01/19 15:00 23:00 07:00 Intake Total 1200 ml 480 ml 240 ml Balance 1200 ml 480 ml 240 ml Labs: Laboratory Tests Test 08/01/19 07:25 Glucose (Fingerstick) 107 mg/dL (70-99) H Current Medications: I have reviewed the current psychotropics carefully including drug interactions. Risk benefit ratio favors no change other than as noted in my dictated progress note. Diagnosis: Problems: (1) Anxiety disorder (2) Dementia, vascular, with delusions (3) Dementia, vascular, with depression (4) Dementia in Alzheimer's disease with delusions (5) Dementia in Alzheimer's disease with depression (6) Impulse control disorder (7) Delirium due to general medical condition PAUL SHER MD Aug 01, 2019 21:35
--- NOTE | 2019-08-01 23:29 | PN ---
DATE: 07/31/2019 This is a late entry 07/31/2019 covers elements not covered in my initial note. SUBJECTIVE: I met with the patient in the evening of 07/31/2019 and staffed a treatment team meeting with the entire team. The patient is sleeping about 7-1/2 hours. Appetite 75-100%. The patient has been pleasant, cooperative, compliant with medications and assessments. Social service staff discussed contact with the family and arrangements for transition to [facility] for usp care on Sunday08/02/2019. REVIEW OF SYSTEMS: Ambulation impaired, in wheelchair. She has status post pelvic fracture and has a hip fracture. Defer to Dr. Atwood. No CV, , pulmonary, eye system symptoms on review. MENTAL STATUS EXAMINATION: Oriented to herself and situation. Speech is coherent. Abstraction fair. Computation is impaired. She is quite bright, verbal, interactive. No suicidal or homicidal ideation. Attention span fair. IMPRESSION: Unchanged from the initial note. Major neurocognitive disorder, early Alzheimer, vascular with depression, in partial remission; anxiety disorder unspecified, delirium due to general medical condition, in partial remission. PLAN: No change from initial note. MAN Radha SHER MD DR: JACE/michelle JOB#: [id number] / [id number]
== END 2019-08-01 16:24 | DRG 885 ==
LOC: GEROPSY 19:20
PROVIDERS: ADMIT Psychiatry & Neurology Psychiatry; ATTEND Psychiatry & Neurology Psychiatry
DX: F32.3 Major depressive disorder, single episode, severe with psychotic features (principal); F05 Delirium due to known physiological condition; N39.0 Urinary tract infection, site not specified; G30.9 Alzheimer's disease, unspecified; F01.50 Vascular dementia, unspecified severity, without behavioral disturbance, psychotic disturbance, mood disturbance, and anxiety; F41.9 Anxiety disorder, unspecified; F63.9 Impulse disorder, unspecified; F02.80 Dementia in other diseases classified elsewhere, unspecified severity, without behavioral disturbance, psychotic disturbance, mood disturbance, and anxiety; E11.9 Type 2 diabetes mellitus without complications; E78.5 Hyperlipidemia, unspecified; F06.4 Anxiety disorder due to known physiological condition; G47.00 Insomnia, unspecified; I10 Essential (primary) hypertension; I25.10 Atherosclerotic heart disease of native coronary artery without angina pectoris; Z79.899 Other long term (current) drug therapy; Z87.440 Personal history of urinary (tract) infections; Z91.81 History of falling; Z95.5 Presence of coronary angioplasty implant and graft; Z87.828 Personal history of other (healed) physical injury and trauma
CPT/HCPCS: 36415; 73501; 73552; 80053; 80061; 81001; 82306; 82947; 83036; 83540; 83550; 83735; 84132; 84436; 84443; 84480; 85025; 86592; 87086; 87186; 93005; 97110; 97116; 97530; 97535